=== PATIENT | male | born 1970 | race Caucasian/White ===

== ENCOUNTER 2017-04-09 04:40 | Inpatient (IN) | payer OTHER ==
[2017-04-09] MEDS ORDERED: ACETAMINOPHEN TAB 500 MG TAB PO STA (04:46)
[2017-04-09] MEDS ORDERED: VANCOMYCIN IV PER PHARMACY 1 EACH MISC MISCELLANE PRN (04:46)
[2017-04-09] MEDS ORDERED: SODIUM CHLORIDE 0.9% 1,000 ML IV ONE (04:48)
[2017-04-09] MEDS ORDERED: SODIUM CHLORIDE 0.9% 1,000 ML IV SCH (05:00)
[2017-04-09 05:03] LABS: Basophils % (A) 0 %; CH 30.3; CHCM 33.3; Eosinophils % (A) 0 %; HCT 37.7 % (39.0-53.0); HDW 2.69; HGB 12.7 gm/dL (13.0-17.5); Luc # (Auto) 0.32; Luc % (Auto) 2; Lymphocytes # (A) 0.6 k/uL (1.0-4.8); Lymphocytes % (A) 4 %; MCH 30.8 pg (25.0-35.0); MCHC 33.7 g/dL (31.0-37.0); MCV 91.3 fL (80.0-100.0); Mean Platelet Volume 6.9; Monocytes % (A) 6 %; Neutrophils # (A) 14.3 k/uL (1.3-7.7); Neutrophils % (A) 88 %; RBC 4.13 m/uL (4.30-5.90); RDW 13.3 % (11.5-15.5); WBC 16.3 k/uL (3.8-10.6); WBC (Perox) 16.99
--- NOTE | 2017-04-09 05:09 | ED ---
General Adult HPI - General Chief complaint: Extremity Injury, Lower Stated complaint: leg swelling Time Seen by Provider: 04/09/17 04:46 Source: patient, EMS, RN notes reviewed, old records reviewed Mode of arrival: EMS Limitations: physical limitation - History of Present Illness Initial comments: 46-year-old male with history diabetes presents with a three-day history of worsening left foot and lower extremity pain and redness. Patient noticed a wound on his foot just at the base toes. He states he opened this with a razor blade. He did obtain some pus from this. Patient states that his foot was initially swollen, this progressed to the knee. Patient has had fever and chills. Patient takes Lantus for his diabetes. Additional past medical history of asthma. Patient is a current smoker. - Related Data Previous Rx's Medication Instructions Recorded diphenhydrAMINE [Benadryl] 25 mg PO TID PRN #20 capsule 03/01/16 Allergies Allergy/AdvReac Type Severity Reaction Status Date / Time No Known Allergies Allergy Verified 04/09/17 04:41 Review of Systems ROS Statement: Those systems with pertinent positive or pertinent negative responses have been documented in the HPI. ROS Other: All systems not noted in ROS Statement are negative. Past Medical History Past Medical History: Asthma, COPD, Diabetes Mellitus Additional Past Medical History / Comment(s): neuropathy History of Any Multi-Drug Resistant Organisms: None Reported Past Surgical History: Orthopedic Surgery Past Psychological History: ADD/ADHD Smoking Status: Former smoker Past Alcohol Use History: None Reported Past Drug Use History: Marijuana General Exam Limitations: physical limitation General appearance: alert, in distress Head exam: Present: atraumatic, normocephalic Eye exam: Present: normal appearance, PERRL ENT exam: Present: mucous membranes dry Respiratory exam: Present: wheezes, prolonged expiratory, other (Bronchospastic cough) Cardiovascular Exam: Present: normal rhythm, tachycardia GI/Abdominal exam: Present: soft. Absent: distended, tenderness Extremities exam: Present: tenderness, other (Significant swelling, erythema, and tenderness of the left lower extremity distal to the knee. There is fluctuance at the base of the toes, and open laceration.) Neurological exam: Present: alert, oriented X3 Psychiatric exam: Present: normal affect, normal mood Skin exam: Present: warm, dry Course Vital Signs 04/09/17 04/09/17 04/09/17 04:41 05:27 05:30 Temperature 101.5 F H Pulse Rate 110 H 104 H 100 Respiratory 18 18 Rate Blood Pressure 143/83 113/57 O2 Sat by Pulse 96 96 Oximetry 04/09/17 04/09/17 05:41 06:06 Temperature 100.1 F H Pulse Rate 97 100 Respiratory 18 Rate Blood Pressure 101/57 O2 Sat by Pulse 96 Oximetry EKG Findings - EKG Comments: EKG Findings:: EKG shows sinus tachycardia with occasional PVC, T-wave inversion in V2 and V3. Ventricular rate 108, GA interval 152, QRS duration 84 , QTC 458 Medical Decision Making - Medical Decision Making 46 yo male presenting with a three-day history of worsening left lower extremity pain swelling and erythema. Patient has had fever and chills. On examination his left foot is severely swollen, erythematous, warm. This progresses up to the knee. Patient is started on vancomycin and ceftriaxone. Laboratory studies are obtained, patient has white blood cell count 16.3, glucose at 305, sodium is 127 which is likely pseudohyponatremia. Creatinine 1.2. X-ray of the left foot and tib/fib is obtained , no foreign body, no soft tissue gas. - Lab Data Result diagrams: 04/09/17 04:49 04/09/17 04:49 Lab Results 04/09/17 04/09/17 04/09/17 Range/Units 04:49 04:49 04:49 WBC 16.3 H (3.8-10.6) k/uL RBC 4.13 L (4.30-5.90) m/uL Hgb 12.7 L (13.0-17.5) gm/dL Hct 37.7 L (39.0-53.0) % MCV 91.3 (80.0-100.0) fL MCH 30.8 (25.0-35.0) pg MCHC 33.7 (31.0-37.0) g/dL RDW 13.3 (11.5-15.5) % Plt Count 379 (150-450) k/uL Neutrophils % 88 % Lymphocytes % 4 % Monocytes % 6 % Eosinophils % 0 % Basophils % 0 % Neutrophils # 14.3 H (1.3-7.7) k/uL Lymphocytes # 0.6 L (1.0-4.8) k/uL Monocytes # 1.0 (0-1.0) k/uL Eosinophils # 0.0 (0-0.7) k/uL Basophils # 0.0 (0-0.2) k/uL PT (9.0-12.0) sec INR (<1.2) APTT (22.0-30.0) sec Sodium 127 L (137-145) mmol/L Potassium 4.2 (3.5-5.1) mmol/L Chloride 98 (98-107) mmol/L Carbon Dioxide 17 L (22-30) mmol/L Anion Gap 12 mmol/L BUN 21 H (9-20) mg/dL Creatinine 1.20 (0.66-1.25) mg/dL Est GFR (MDRD) Af Amer >60 (>60 ml/min/1.73 sqM) Est GFR (MDRD) Non-Af >60 (>60 ml/min/1.73 sqM) Glucose 337 H (74-99) mg/dL POC Glucose (mg/dL) (75-99) mg/dL POC Glu Mitering Machine Operator ID Plasma Lactic Acid Cezar 1.9 (0.7-2.0) mmol/L Calcium 8.4 (8.4-10.2) mg/dL Total Bilirubin 1.1 (0.2-1.3) mg/dL AST 33 (17-59) U/L ALT 42 (21-72) U/L Alkaline Phosphatase 94 (38-126) U/L Total Protein 6.5 (6.3-8.2) g/dL Albumin 3.2 L (3.5-5.0) g/dL Acetone, Qual Negative (Negative) 04/09/17 04/09/17 Range/Units 04:49 04:59 WBC (3.8-10.6) k/uL RBC (4.30-5.90) m/uL Hgb (13.0-17.5) gm/dL Hct (39.0-53.0) % MCV (80.0-100.0) fL MCH (25.0-35.0) pg MCHC (31.0-37.0) g/dL RDW (11.5-15.5) % Plt Count (150-450) k/uL Neutrophils % % Lymphocytes % % Monocytes % % Eosinophils % % Basophils % % Neutrophils # (1.3-7.7) k/uL Lymphocytes # (1.0-4.8) k/uL Monocytes # (0-1.0) k/uL Eosinophils # (0-0.7) k/uL Basophils # (0-0.2) k/uL PT 11.8 (9.0-12.0) sec INR 1.2 H (<1.2) APTT 27.9 (22.0-30.0) sec Sodium (137-145) mmol/L Potassium (3.5-5.1) mmol/L Chloride (98-107) mmol/L Carbon Dioxide (22-30) mmol/L Anion Gap mmol/L BUN (9-20) mg/dL Creatinine (0.66-1.25) mg/dL Est GFR (MDRD) Af Amer (>60 ml/min/1.73 sqM) Est GFR (MDRD) Non-Af (>60 ml/min/1.73 sqM) Glucose (74-99) mg/dL POC Glucose (mg/dL) 305 H (75-99) mg/dL POC Glu Mitering Machine Operator ID Haley Mujica Plasma Lactic Acid Cezar (0.7-2.0) mmol/L Calcium (8.4-10.2) mg/dL Total Bilirubin (0.2-1.3) mg/dL AST (17-59) U/L ALT (21-72) U/L Alkaline Phosphatase (38-126) U/L Total Protein (6.3-8.2) g/dL Albumin (3.5-5.0) g/dL Acetone, Qual (Negative) Disposition Clinical Impression: Cellulitis and abscess of foot, Sepsis Disposition: [facility] Condition: Good Referrals: Armaan León DO [Primary Care Provider] - 1-2 days Decision to Admit Reason: Admit from EC Decision Date: 04/09/17 Decision Time: 06:24
[2017-04-09 05:11] LABS: INR 1.2 (<1.2); Partial Thromboplastin Time 27.9 sec (22.0-30.0); Prothrombin Time 11.8 sec (9.0-12.0)
[2017-04-09] MEDS ORDERED: IPRATROPIUM 0.5 MG/2.5 ML NEBU INHALATION STA (05:13)
[2017-04-09] MEDS ORDERED: ALBUTEROL NEBULIZED 2.5 MG/3 ML INHALATION STA (05:13)
[2017-04-09 05:19] LABS: ALT 42 U/L (21-72); AST 33 U/L (17-59); Alkaline Phosphatase 94 U/L (38-126); Anion Gap 12 mmol/L; Blood Urea Nitrogen 21 mg/dL (9-20); Calcium 8.4 mg/dL (8.4-10.2); Carbon Dioxide 17 mmol/L (22-30); Chloride 98 mmol/L (98-107); Glucose 337 mg/dL (74-99); Non-African American GFR(MDRD) >60 (>60 ml/min/1.73 sqM); Potassium 4.2 mmol/L (3.5-5.1); Sodium 127 mmol/L (137-145); Total Bilirubin 1.1 mg/dL (0.2-1.3); Total Protein 6.5 g/dL (6.3-8.2)
[2017-04-09 05:20] LABS: Glucose,Whole Blood 305 mg/dL (75-99)
[2017-04-09] MEDS ORDERED: MORPHINE SULFATE 4 MG/ML SYRINGE IVP STA (05:20)
[2017-04-09] MEDS ORDERED: ONDANSETRON 4 MG/2 ML VIAL IVP STA (05:28)
[2017-04-09] MEDS ORDERED: VANCOMYCIN 1,500 MG in SODIUM CHLORIDE 0.9% 250 ML IVPB ONE (06:00)
[2017-04-09] MEDS ORDERED: KETOROLAC 30 MG/ML 1 ML VIAL IVP STA (06:13)
[2017-04-09] MEDS ORDERED: ONDANSETRON 4 MG/2 ML VIAL IVP PRN (06:25)
[2017-04-09] MEDS ORDERED: NALOXONE 0.4 MG/ML 1 ML VIAL IV PRN (06:25)
--- NOTE | 2017-04-09 06:32 | XR ---
EXAM: XR Left Foot Complete, 3 or More Views CLINICAL HISTORY: Reason: Pain TECHNIQUE: Frontal, lateral and oblique views of the left foot. COMPARISON: No relevant prior studies available. FINDINGS: Bones/joints: Faint density lateral to the fifth proximal phalanx seen only on the oblique view. This may represent overlying debris or soft tissue calcification. Mild narrowing of the first MTP joint. No acute fracture. No dislocation. Soft tissues: Mild soft tissue swelling about the midfoot No radiopaque foreign body. Other findings: IMPRESSION: No acute bony abnormality. Possible overlying debris versus soft tissue calcification adjacent to the fifth proximal phalanx. Recommend clinical correlation.
--- NOTE | 2017-04-09 06:35 | XR ---
EXAM: XR Left Tibia and Fibula, 2 Views CLINICAL HISTORY: Reason: Pain TECHNIQUE: Frontal and lateral views of the left tibia and fibula. COMPARISON: No relevant prior studies available. FINDINGS: Bones/joints: No acute fracture. No dislocation. Soft tissues: Faint curvilinear density in the medial aspect of the mid left lower extremity which likely reflect material overlying the skin. Recommend correlation with exam. IMPRESSION: No acute findings.
[2017-04-09 07:33] LABS: Glucose,Whole Blood 249 mg/dL (75-99)
[2017-04-09] MEDS: INSULIN LISPRO (humaLOG) 300 UNIT/3 ML VIAL SQ SCH ×5 (08:15→21:34)
[2017-04-09 08:33] VITALS: BMI 25.2
[2017-04-09] MEDS: MORPHINE SULFATE 4 MG/ML SYRINGE IV PRN ×4 (08:37→20:37)
[2017-04-09 12:25] LABS: Glucose,Whole Blood 284 mg/dL (75-99)
[2017-04-09] MEDS ORDERED: INSULIN GLARGINE 100 UNIT/ML 10 ML VIAL SQ SCH (12:58)
[2017-04-09] MEDS: LISINOPRIL 5 MG TAB PO SCH (13:34)
[2017-04-09] MEDS: GABAPENTIN 400 MG CAP PO SCH ×3 (13:34→20:36)
[2017-04-09] MEDS: ENOXAPARIN 40 MG/0.4 ML SYRINGE SQ SCH (13:34)
[2017-04-09] MEDS: LACTATED RINGERS 1,000 ML IV SCH (16:05)
[2017-04-09] MEDS: VANCOMYCIN 1,500 MG in SODIUM CHLORIDE 0.9% 250 ML IVPB SCH (16:09)
[2017-04-09] MEDS: PIPERACILLIN-TAZOBACTAM 3.375 GM in DEXTROSE/WATER 1 50ML.BAG IVPB SCH (16:09)
[2017-04-09 17:19] LABS: Glucose,Whole Blood 164 mg/dL (75-99)
--- NOTE | 2017-04-09 18:06 | HP ---
HISTORY AND PHYSICAL DATE OF ADMISSION: 04/09/2017 PRESENTING COMPLAINT: Left foot infection. HISTORY OF PRESENTING COMPLAINT: Pleasant 46-year-old patient of Dr. León. He has been a diabetic for close to 8 years with peripheral neuropathy. He has legal blindness in the right eye. The patient has an infection of the right big toe and is due for amputation by Dr. Mattson in a week's time. For 3 days he started off with infection in the left foot. His daughter thought he had glass in the dorsum of the foot, whereas he thought maybe there was a spider bite. Nevertheless, the left foot near the lateral 3 toes is rather infected, became swollen, boggy, painful. The patient's friend yesterday took a razor sterilized in some alcohol and drained it, and he said about a cupful of pus came out. Because the pain was becoming unbearable, he decided to come into the hospital. His other stable conditions include COPD. REVIEW OF SYSTEMS: CONSTITUTIONAL: None. HEENT: Poor vision in the right eye. RESPIRATORY: Baseline shortness of breath, mild. CARDIOVASCULAR: None. GASTROINTESTINAL: None. GENITOURINARY: None. MUSCULOSKELETAL: As above. DERMATOLOGICAL: As above. LYMPHATICS: None. PSYCHIATRY: None. NEUROLOGICAL: Peripheral neuropathy. PAST MEDICAL HISTORY: 1. Peripheral neuropathy. 2. Diabetes. 3. COPD. 4. Left big toe infection. PAST SURGICAL HISTORY: Orthopedic surgery. PAST PSYCHIATRIC HISTORY: ADHD. SOCIAL HISTORY: The patient smoked for 27 years, 1 pack a day; stopped less than a year ago. The patient takes care of his mother. FAMILY HISTORY: Diabetes. HOME MEDICATIONS: 1. Gabapentin 1200 mg p.o. t.i.d. 2. Prinivil 5 mg p.o. daily. 3. Lantus 70 units subcutaneously before meals t.i.d. ALLERGIES: NONE. PHYSICAL EXAMINATION: VITAL SIGNS ON PRESENTATION: Temperature 101.5, pulse 110, respiration 18, blood pressure 143/83, pulse ox 96% on room air. GENERAL APPEARANCE: Average build. Lying in bed, not in distress. EYES: Pupils equal. Conjunctivae normal. HEENT: Oral cavity normal. NECK: JVD not raised. Mass not palpable. RESPIRATORY: Effort normal. LUNGS: Decreased breath sounds. CARDIOVASCULAR: First and second sounds normal. No edema. ABDOMEN: Soft, nontender. Liver and spleen not palpable. LYMPHATIC: No lymph node palpable in neck or axillae. PSYCHIATRY: Alert and oriented x3. Mood and affect normal. NEUROLOGICAL: Pupils equal. Cranial nerves grossly intact. Decreased sensation in the feet. Pulses: Patient's dorsalis pedis is palpable on both sides. EXTREMITIES: There is a large area of bogginess on the dorsum of the left foot and on the plantar surface with an area of breakdown, tenderness. INVESTIGATIONS: White count 16.3, hemoglobin 12.7, sodium 127, potassium 4.2, BUN 21, creatinine 1.27. Glucose 305. HGB A1c is 9. Albumin is 3.2. Serum acetone is negative. Foot x-ray shows no bony abnormalities. ASSESSMENT: 1. Left foot abscess in a diabetic with a wound and peripheral neuropathy; about a cupful of pus was drained outside. 2. Diabetes mellitus, type 2, chronically on insulin, causing peripheral neuropathy. 3. Chronic obstructive pulmonary disease in an ex-smoker. 4. Legally blind in the right eye. PLAN: The patient is on IV vancomycin. Will also add IV Zosyn. Consultation to Orthopedics for possible surgical intervention. will be done. Will check a lipid profile. Also add Lipitor. Will add some NSAIDs for anti-inflammatory effect. Will also consult Dr. Mattson, to whom the patient is known. Care was discussed with the patient. IV fluids will be given liberally. MMODL / IJN: [id number] /
[2017-04-09 21:27] LABS: Glucose,Whole Blood 138 mg/dL (75-99)
[2017-04-09] MEDS: guaiFENesin SYRUP 100MG/5ML 200 MG/10 ML CUP PO PRN (21:28)
[2017-04-09] MEDS: INSULIN GLARGINE 100 UNIT/ML 10 ML VIAL SQ SCH (21:32)
[2017-04-09] MEDS: ACETAMINOPHEN TAB 325 MG TAB PO PRN (22:25)
[2017-04-10] MEDS: MORPHINE SULFATE 4 MG/ML SYRINGE IV PRN ×4 (00:57→20:38)
[2017-04-10] MEDS: INSULIN GLARGINE 100 UNIT/ML 10 ML VIAL SQ SCH (00:59)
[2017-04-10] MEDS: LACTATED RINGERS 1,000 ML IV SCH ×4 (01:01→17:22)
[2017-04-10] MEDS: PIPERACILLIN-TAZOBACTAM 3.375 GM in DEXTROSE/WATER 1 50ML.BAG IVPB SCH ×3 (01:03→15:12)
[2017-04-10] MEDS ORDERED: IBUPROFEN 400 MG TAB PO PRN (01:24)
[2017-04-10] MEDS ORDERED: IV FLUID CONTINUATION 1,000 ML IV ONE ×4 (04:08)
[2017-04-10] MEDS: VANCOMYCIN 1,500 MG in SODIUM CHLORIDE 0.9% 250 ML IVPB SCH ×2 (04:27→15:12)
--- NOTE | 2017-04-10 06:34 | CONS ---
CONSULTATION DATE OF SERVICE: 04/09/2017 REASON FOR CONSULTATION: Left diabetic foot infection with sepsis and antibiotic recommendation. HISTORY OF PRESENT ILLNESS: The patient is a 46-year-old male with a past medical history significant for diabetes mellitus with peripheral neuropathy. The patient started having a problem with his left foot swelling and redness for the last 3 to 4 days. Apparently the patient may have stepped on a glass as the daughter did pull a small piece of glass from his plantar aspect of his left foot a few days ago. The area subsequently becoming more swollen and red and painful. Pain described to be throbbing almost 7 to 8 out of 10 and worse with minimal touch. With the area getting more swollen and red, one of his friends took a razor and tried to drain it, with drainage of some abscess; however, subsequently the patient has more pain in his left foot area for which the patient came to the [facility] ER. The patient has been evaluated by the ER physician. The patient did have fever of 101 degrees Fahrenheit. The patient did have elevated white count of 16,000. X-rays of the left foot did show no acute bony abnormality, possible overlying debris versus soft tissue calcification adjacent to the fifth proximal phalanx. The patient was started on broad-spectrum antibiotic in the form of vancomycin and Zosyn. ID was consulted for further recommendation regarding antibiotic therapy. REVIEW OF SYSTEMS: CONSTITUTIONAL: Positive for weakness along with the fever. EYES: No complaint. ENT: No complaint. RESPIRATORY: No complaint. CARDIOVASCULAR: No complaint. GENITOURINARY: No complaint. GASTROINTESTINAL: No complaint. MUSCULOSKELETAL: As per HPI. INTEGUMENTARY: As per HPI. PSYCHOLOGICAL: No complaint. ENDOCRINE: No complaint. NEUROLOGIC: No complaint. PAST MEDICAL HISTORY: Significant for COPD, asthma, diabetes mellitus. PAST SURGICAL HISTORY: Previous orthopedic surgery. SOCIAL HISTORY: Remote history of smoking and did admit to marijuana use. No drinking. FAMILY HISTORY: No pertinent findings noticed. ALLERGIES: No known drug allergies. MEDICATIONS: Medications include the patient is currently on Tylenol, Lipitor, Lovenox, Neurontin, Robitussin, Lantus, Humalog, lactated Ringer's, Zestril, morphine sulfate, Narcan, Zofran, piperacillin tazobactam and vancomycin, pharmacy to dose. PHYSICAL EXAMINATION: On examination, blood pressure 121/66 with a pulse of 85, temperature of 97, T- max is 101. He is 98% on room. General description is a middle-aged male lying in bed, in no distress. No tachypnea or accessory muscle of respiration use. HEENT EXAMINATION: No pallor or scleral icterus. Oral mucous membrane is dry. NECK: Trachea central. No thyromegaly. LUNGS: Unlabored breathing. Clear to auscultation anteriorly. HEART: S1, S2. Regular rate and rhythm. ABDOMEN: Soft, no tenderness. Left foot is swollen and red with a wound on the plantar aspect and surrounding abscess, is painful to touch. NEUROLOGICAL: Patient is awake, alert, oriented x3. Mood and affect normal. LABS: Hemoglobin is 12.7, white count 16.3 with a BUN of 21, creatinine 1.20. Blood and wound culture obtained currently pending. DIAGNOSTIC IMPRESSION AND PLAN: Patient with sepsis in a patient who did have a fever, elevated white count meeting criteria for systemic inflammatory response syndrome. Source is left diabetic foot infection with an abscess with attempted drainage at home and removal of a piece of glass likely the initiating factor for this infection. In view of his uncontrolled diabetes, will need to cover for the resistant gram positive and gram negative pathogen. PLAN: 1. Vancomycin pharmacy to dose with target trough of 15 and with Zosyn will provide adequate antibiotic coverage for underlying diabetic foot infection. 2. Await had the surgery evaluation and drainage of this abscess at which time deep culture should be obtained. 3. We will follow up on his clinical condition and culture to further adjust medication if needed. Thank you for this consultation. Will follow this patient along with you. MMODL / IJN: [id number] / [place]
[2017-04-10 07:29] LABS: Glucose,Whole Blood 143 mg/dL (75-99)
[2017-04-10] MEDS: GABAPENTIN 400 MG CAP PO SCH ×3 (07:36→20:43)
[2017-04-10] MEDS: ATORVASTATIN 40 MG TAB PO SCH (07:36)
[2017-04-10] MEDS: LISINOPRIL 5 MG TAB PO SCH (07:37)
[2017-04-10] MEDS: ENOXAPARIN 40 MG/0.4 ML SYRINGE SQ SCH (07:37)
[2017-04-10] MEDS: INSULIN LISPRO (humaLOG) 300 UNIT/3 ML VIAL SQ SCH ×7 (07:39→20:44)
[2017-04-10 08:12] LABS: AST 29 U/L (17-59); Alkaline Phosphatase 76 U/L (38-126); Anion Gap 10 mmol/L; Blood Urea Nitrogen 13 mg/dL (9-20); Calcium 8.3 mg/dL (8.4-10.2); Carbon Dioxide 20 mmol/L (22-30); Chloride 107 mmol/L (98-107); Cholesterol 85 mg/dL (<200); Glucose 137 mg/dL (74-99); HDL Cholesterol 17 mg/dL (40-60); Non-African American GFR(MDRD) >60 (>60 ml/min/1.73 sqM); Potassium 4.2 mmol/L (3.5-5.1); Sodium 137 mmol/L (137-145); Total Bilirubin 0.4 mg/dL (0.2-1.3); Total Protein 5.9 g/dL (6.3-8.2)
[2017-04-10 08:18] LABS: ALT 41 U/L (21-72)
[2017-04-10 08:32] LABS: Basophils # (A) 0.1 k/uL (0-0.2); Basophils % (A) 0 %; CH 29.6; CHCM 31.1; Eosinophils # (A) 0.1 k/uL (0-0.7); Eosinophils % (A) 1 %; HCT 39.9 % (39.0-53.0); HDW 2.82; HGB 12.7 gm/dL (13.0-17.5); Hypochromasia Slight; Luc # (Auto) 0.33; Luc % (Auto) 3; Lymphocytes # (A) 1.2 k/uL (1.0-4.8); Lymphocytes % (A) 9 %; MCH 30.5 pg (25.0-35.0); MCHC 31.9 g/dL (31.0-37.0); MCV 95.7 fL (80.0-100.0); Mean Platelet Volume 6.8; Monocytes % (A) 8 %; Neutrophils # (A) 10.2 k/uL (1.3-7.7); Neutrophils % (A) 80 %; RBC 4.17 m/uL (4.30-5.90); RDW 13.7 % (11.5-15.5); WBC 12.8 k/uL (3.8-10.6)
[2017-04-10] MEDS: guaiFENesin SYRUP 100MG/5ML 200 MG/10 ML CUP PO PRN (08:34)
--- NOTE | 2017-04-10 08:38 | P.CNOR ---
History of Present Illness - HPI Consult date: 04/10/17 History of present illness: This is a 46-year-old male who is admitted for left foot infection. Patient has a past medical history significant for diabetes. Patient states 5 days ago he was bitten by a spider and this caused an infection in the foot. Patient states over the last 5 days he has tried to drain the infection with a razor blade at home patient. Patient states clear fluid came out of the wound after he drained it at home. Patient reports excessive thirstiness. Patient states he has full sensation of the left foot and he is in a lot of pain from this infection. Patient states he sees a talent acquisition lead for the right big toe. Patient states the swelling of the left foot has doubled in size. Patient denies any fever/chills, nausea/vomiting, tingling or weakness. Review of Systems See HPI. Past Medical History Past Medical History: Asthma, COPD, Diabetes Mellitus Additional Past Medical History / Comment(s): neuropathy History of Any Multi-Drug Resistant Organisms: None Reported Past Surgical History: Orthopedic Surgery Past Psychological History: ADD/ADHD Smoking Status: Former smoker Past Alcohol Use History: None Reported Past Drug Use History: Marijuana - Past Family History Mother Family Medical History: Diabetes Mellitus Father Family Medical History: Diabetes Mellitus Medications and Allergies Home Medications Medication Instructions Recorded Confirmed Type Gabapentin 1,200 mg PO TID 04/09/17 04/09/17 History Insulin Glargine [Lantus] 70 unit SQ AC-BID 04/09/17 04/09/17 History Lisinopril [Prinivil] 5 mg PO DAILY 04/09/17 04/09/17 History Allergies Allergy/AdvReac Type Severity Reaction Status Date / Time No Known Allergies Allergy Verified 04/09/17 06:48 Physical Examination On exam of the left lower extremity there is significant swelling of the left foot extending to the lower leg. There is erythema of the dorsal aspect of the left foot. There is an abscess over the lateral aspect of the left foot with evidence of drainage. Patient has limited range of motion of the left foot and ankle due to pain and swelling. Sensation intact. Capillary refill is normal at less than 2 seconds. Results X-rays of the left foot and left tib-fib are reviewed and are negative for any fracture dislocation. - Labs Labs: Abnormal Lab Results - Last 24 Hours (Table) 04/09/17 04/09/17 04/09/17 Range/Units 04:49 12:23 17:12 Carbon Dioxide (22-30) mmol/L Glucose (74-99) mg/dL POC Glucose (mg/dL) 284 H 164 H (75-99) mg/dL Hemoglobin A1c 9.0 H (4.2-6.1) % Calcium (8.4-10.2) mg/dL Total Protein (6.3-8.2) g/dL Albumin (3.5-5.0) g/dL HDL Cholesterol (40-60) mg/dL 04/09/17 04/10/17 04/10/17 Range/Units 21:13 07:20 07:27 Carbon Dioxide 20 L (22-30) mmol/L Glucose 137 H (74-99) mg/dL POC Glucose (mg/dL) 138 H 143 H (75-99) mg/dL Hemoglobin A1c (4.2-6.1) % Calcium 8.3 L (8.4-10.2) mg/dL Total Protein 5.9 L (6.3-8.2) g/dL Albumin 2.7 L (3.5-5.0) g/dL HDL Cholesterol 17 L (40-60) mg/dL Microbiology - Last 24 Hours (Table) 04/09/17 04:49 Blood Culture - Preliminary Blood No Growth after 24 hours 04/09/17 04:52 Gram Stain - Preliminary Foot - Left Wound Culture - Preliminary H & H 04/09/17 Range/Units 04:49 Hgb 12.7 L (13.0-17.5) gm/dL Hct 37.7 L (39.0-53.0) % Coagulation 04/09/17 Range/Units 04:49 INR 1.2 H (<1.2) Result Diagrams: 04/09/17 04:49 04/10/17 07:20 Assessment and Plan (1) Cellulitis and abscess of foot Status: Acute Plan: #1. NPO #2. Incision and drainage of the left foot scheduled for today. Consent pending. #3. Will continue to follow the patient closely.
[2017-04-10 12:08] LABS: Glucose,Whole Blood 108 mg/dL (75-99)
[2017-04-10] MEDS ORDERED: fentaNYL (PF) 50 MCG/ML 2 ML AMP ONE (16:34)
[2017-04-10] MEDS ORDERED: MIDAZOLAM 2 MG/2 ML VIAL ONE (16:34)
[2017-04-10] MEDS ORDERED: SUCCINYLCHOLINE CHLORIDE 100 MG/5 ML SYR IV ONE (16:34)
[2017-04-10] MEDS ORDERED: PROPOFOL 10 MG/ML 20 ML VIAL IV ONE (16:34)
[2017-04-10] MEDS ORDERED: PHENYLEPHRINE-0.9% NACL SYG 1 MG/10 ML SYRINGE ONE ×2 (16:34)
[2017-04-10] MEDS ORDERED: HYDROmorphone 0.5 MG/0.5 ML SYRINGE IVP PRN (16:44)
--- NOTE | 2017-04-10 17:15 | P.PN ---
Progress Note - Text Progress Note Date: 04/10/17 DATE OF SERVICE: 04/10/2017 PRESENTING COMPLAINT: Left foot infection HISTORY OF PRESENT ILLNESS: 46-year-old male who presented with left foot infection, lateral 3 toes is infected swollen, boggy, painful. Friend of the patient took a razor blade and sterilized it is an alcohol and drained the area there was about a cup of pus came out. Patient admitted for left foot abscess and a diabetic wound. INTERVAL HISTORY: 04/10/2017: Patient lying in bed appears anxious. Running low-grade fevers, periodically tachycardic with occasional hypotension. Tolerating his diet, eating between 50 and 75% of his meals, IV antibiotics continue, per ID. Orthopedics consulted , scheduled for incision and draining of the left foot later today. Patient is ambulatory for short distances to and from the bathroom. REVIEW OF SYSTEMS: Done for constitutional ,cardiovascular, GI, pulmonary with relevant findings as above. CURRENT MEDICATIONS Lipitor, Lovenox, Neurontin, Motrin, Lantus, Zestril, Zosyn, vancomycin. PHYSICAL EXAM VITAL SIGNS: Temperature 97.0, pulse 86, respiratory rate 18, blood pressure 97/54, oxygen saturation 96% on room air. GENERAL APPEARANCE: Lying in bed, anxious appearing. EYES: Pupils equal. Conjunctiva normal. NECK: JVD not raised. Mass not palpable. RESPIRATORY: Respiratory effort normal. Lungs clear to auscultation. CARDIOVASCULAR: First and second sounds normal. No edema. ABDOMEN: Soft. Liver and spleen not palpable. No tenderness. No mass palpable. PSYCHIATRY: Alert and oriented x3. Mood and affect normal. INTEGUMENT: Significant swelling of the left lower extremity and foot extending to the lower leg, erythema of the dorsal aspect of the left foot, abscess noted over the lateral aspect with some drainage. Limited range of motion of the left foot. INVESTIGATIONS: White blood cell count 12.8, hemoglobin 12.7, BUN 13, creatinine 0.98, Accu- Cheks noted. ASSESSMENT: -Left foot abscess in a diabetic with a wound and peripheral neuropathy, about a cupful of pus was drained prior to admission. -Leukocytosis likely due to left foot abscess -Diabetes mellitus type 2 chronically on insulin causing peripheral neuropathy. -Chronic obstructive pulmonary disease in an ex-smoker. -Legally blind in the right eye. PLAN: Continue antibiotic therapy, wound care continues to follow the patient orthopedics taking the patient for I&D later this afternoon, infectious disease for antibiotic therapy to include vancomycin and Zosyn await deep wound cultures adjustments to be made based on that. and vascular surgery to evaluate , wound then vascular functioning of the left foot. Plan of care discussed with the patient at the bedside he is in agreement. We will continue to follow closely. [employer]ION statement: Patient was seen and examined by nurse practitioner Chio Preciado and all elements of the case discussed with attending Dr. Estrella
--- NOTE | 2017-04-10 17:19 | P.OP ---
Date of Procedure: 04/10/17 Preoperative Diagnosis: abscess left foot Postoperative Diagnosis: abscess left foot Procedure(s) Performed: incision and drainage of the left foot Anesthesia: LORI Surgeon: Gautam Ellis Pulmonary Function Technician #1: Hannah Rosen Estimated Blood Loss (ml): 5 Pathology: other Condition: stable Disposition: PACU Indications for Procedure: this is a 38-year-old gentleman that presented to the ER last night with an infection in his left foot. He has a history of having a spider bite to his left foot which became infected and failed outpatient treatment. After discussing the surgical and nonsurgical treatment options with him at length he wishes to proceed with incision and drainage of his left foot, and informed consent was obtained. Operative Findings: the operative findings are consistent with abscess of the left foot Description of Procedure: the patient was seen in the preoperative area consent was reviewed and operative site was marked with a skin marker. Patient was then brought to the operating room and given a general anesthetic by the anesthesia department. The left foot was then prepped and draped in the usual sterile fashion. A universal timeout was then performed which confirmed the patient's name, surgical site, ALLERGIES, and consent. the procedure began by incising the plantar surface of the foot in the area of maximum maximal fluctuance. Mild to moderate amount of purulent material was expressed. A hemostat was used to probe the deeper tissues. A second incision was made on the dorsum of the left foot again over the area of maximal fluctuance. Here, a large amount of purulent material was expressed. A hemostat was used to open the deeper tissues. The foot was milked both proximally and distally to ensure all the purulent material was removed. This was then cultured 3. next, the areas were irrigated with 3000 L of antibiotic solution via pulsatile lavage. after a thorough irrigation was performed, the wounds were left open and packed with iodoform gauze. Sterile dressings were then applied patient was then transferred to recovery room in stable condition. The real estate executive assistant GREGORY Foss was required due the complexity of the surgery and the need for skilled surgical supply assistant.
[2017-04-10 17:38] LABS: Glucose,Whole Blood 111 mg/dL (75-99)
[2017-04-10] MEDS ORDERED: LACTATED RINGERS 1,000 ML IV ONE (17:50)
--- NOTE | 2017-04-10 18:13 | PN ---
PROGRESS NOTE DATE OF SERVICE: 04/10/17. This patient was seen and examined by me. I discussed with my nurse practitioner, Ms. Preciado. Patient admitted with abscess of the left foot. Due for I and D earlier today. Resting in bed. Pain is present. PHYSICAL EXAMINATION: T-max 102.5, pulse 86, blood pressure 97/54. On exam lungs are clear. ABDOMEN: Soft, left foot on the dorsum and plantar some boggy with some breakdown on the plantar surface. INVESTIGATIONS: White count 12.8, potassium 4.2. Wound cultures growing Staphylococcus aureus. ASSESSMENT: Acute left foot abscess in a patient with diabetes and peripheral neuropathy. Awaiting I and D with sepsis on presentation. PLAN: The patient on IV Zosyn and Vanco. Care was discussed with the patient. Continue current medication and treatment plan. The patient is slow to respond. MMODL / FELIPEN: [id number] /
[2017-04-10 20:36] LABS: Glucose,Whole Blood 259 mg/dL (75-99)
--- NOTE | 2017-04-10 21:28 | PN ---
PROGRESS NOTE DATE OF SERVICE: 04/10/2017. REASON FOR FOLLOW UP: Left diabetic foot infection. INTERVAL HISTORY: The patient is afebrile. He was seen on rounds this morning where the patient was waiting for surgical I and D of this area. The patient denies any chest pain, shortness of breath or cough. No abdominal pain. Pain to the area was slightly controlled. EXAMINATION: Blood pressure is 140/87 with a pulse of 113, temperature 99.1. He is 94% on room air. General description is a middle-aged male lying in bed, in no distress. RESPIRATORY SYSTEM: Unlabored breathing. Clear to auscultation anteriorly. Heart S1, S2. Regular rate and rhythm. Abdomen soft, no tenderness. Left foot remained to be swollen and red. No drainage was noticed. LABS: Hemoglobin is 12.7, white count 12.8 with a BUN of 13, creatinine 0.98. Wound culture from left foot showing presumptive Staph aureus. The blood cultures currently pending. DIAGNOSTIC IMPRESSION AND PLAN: Patient with left diabetic foot infection with likely abscess formation. The patient is scheduled for an I and D this afternoon. Plan to keep the patient on Zosyn, and Vanco while waiting for the culture to finalize. In view of extensive infection , the patient likely will need PICC line for outpatient IV antibiotic therapy. MMODL / IJN: [id number] / [place]
[2017-04-11] MEDS: MORPHINE SULFATE 4 MG/ML SYRINGE IV PRN ×6 (00:46→21:58)
[2017-04-11] MEDS: PIPERACILLIN-TAZOBACTAM 3.375 GM in DEXTROSE/WATER 1 50ML.BAG IVPB SCH ×3 (00:57→18:11)
[2017-04-11] MEDS: guaiFENesin SYRUP 100MG/5ML 200 MG/10 ML CUP PO PRN ×2 (00:57→20:14)
[2017-04-11] MEDS: LACTATED RINGERS 1,000 ML IV SCH ×5 (03:21→23:11)
[2017-04-11] MEDS: ACETAMINOPHEN TAB 325 MG TAB PO PRN (04:17)
[2017-04-11] MEDS: VANCOMYCIN 1,500 MG in SODIUM CHLORIDE 0.9% 250 ML IVPB SCH ×2 (04:17→15:53)
[2017-04-11 07:38] LABS: Glucose,Whole Blood 184 mg/dL (75-99)
[2017-04-11 08:26] LABS: Anion Gap 7 mmol/L; Blood Urea Nitrogen 10 mg/dL (9-20); Calcium 7.7 mg/dL (8.4-10.2); Carbon Dioxide 21 mmol/L (22-30); Chloride 107 mmol/L (98-107); Glucose 194 mg/dL (74-99); Non-African American GFR(MDRD) >60 (>60 ml/min/1.73 sqM); Potassium 3.7 mmol/L (3.5-5.1); Sodium 135 mmol/L (137-145)
[2017-04-11] MEDS: GABAPENTIN 400 MG CAP PO SCH ×3 (08:43→21:59)
[2017-04-11] MEDS: ATORVASTATIN 40 MG TAB PO SCH (08:43)
[2017-04-11] MEDS: INSULIN LISPRO (humaLOG) 300 UNIT/3 ML VIAL SQ SCH ×7 (08:44→22:00)
[2017-04-11] MEDS: LISINOPRIL 5 MG TAB PO SCH (08:45)
[2017-04-11] MEDS: ENOXAPARIN 40 MG/0.4 ML SYRINGE SQ SCH (08:45)
--- NOTE | 2017-04-11 09:15 | P.PN ---
Subjective Progress Note Date: 04/11/17 This is a 46-year-old male admitted for left foot infection. Patient is a known diabetic. Patient is status post incision and drainage of the left foot. This is postoperative day #1. Patient reports pain to the left foot. Patient denies any new complaints today. Objective - Vital Signs Vital signs: Vital Signs Temp 96.7 F L 04/11/17 07:00 Pulse 82 04/11/17 07:00 Resp 18 04/11/17 07:00 BP 118/68 04/11/17 07:00 Pulse Ox 94 L 04/11/17 07:00 Intake & Output 04/10/17 04/11/17 04/11/17 18:59 06:59 18:59 Intake Total 220 Output Total 10 Balance 210 Weight 82 kg Intake: IV 220 Output: Estimated Blood Loss 10 Other: Voiding Method Toilet Urinal # Voids 2 2 # Bowel Movements 1 - Exam On exam of the left foot dressing is dry and intact. Patient has good range of motion of the left ankle and is able to wiggle the toes of the left foot. Sensation intact. - Labs CBC & Chem 7: 04/10/17 07:20 04/11/17 07:35 Labs: Abnormal Lab Results - Last 24 Hours (Table) 04/10/17 04/10/17 04/10/17 Range/Units 12:05 17:31 20:35 Sodium (137-145) mmol/L Carbon Dioxide (22-30) mmol/L Glucose (74-99) mg/dL POC Glucose (mg/dL) 108 H 111 H 259 H (75-99) mg/dL Calcium (8.4-10.2) mg/dL 04/11/17 04/11/17 Range/Units 07:33 07:35 Sodium 135 L (137-145) mmol/L Carbon Dioxide 21 L (22-30) mmol/L Glucose 194 H (74-99) mg/dL POC Glucose (mg/dL) 184 H (75-99) mg/dL Calcium 7.7 L (8.4-10.2) mg/dL Microbiology - Last 24 Hours (Table) 04/10/17 16:52 Gram Stain - Preliminary Foot - Left Wound Culture - Preliminary 04/10/17 16:52 Gram Stain - Preliminary Foot - Left Wound Culture - Preliminary 04/10/17 16:52 Gram Stain - Preliminary Foot - Left Wound Culture - Preliminary 04/09/17 04:49 Blood Culture - Preliminary Blood No Growth after 48 hours 04/10/17 16:52 Anaerobic Culture - Preliminary Foot - Left 04/10/17 16:52 Anaerobic Culture - Preliminary Foot - Left 04/10/17 16:52 Anaerobic Culture - Preliminary Foot - Left 04/09/17 04:52 Gram Stain - Preliminary Foot - Left Wound Culture - Preliminary Presumptive Staph aureus Assessment and Plan (1) Cellulitis and abscess of foot Status: Acute Plan: #1. This is postoperative day #1 of incision and drainage left foot. #2. Can weight bear on heel as tolerated. #3. Appreciate input from infectious disease and vascular surgery #4. Antibiotics per infectious disease #3. Will continue to follow the patient closely.
[2017-04-11 11:45] LABS: Glucose,Whole Blood 340 mg/dL (75-99)
[2017-04-11] MEDS: NAPROXEN 250 MG TAB PO SCH ×5 (11:57→21:59)
--- NOTE | 2017-04-11 13:47 | P.CON ---
Consult Note - . Consult date: 04/11/17 Assessment/Plan:: This 46-year-old male was initially seen as an outpatient brought in during an incarceration on 02/27/2017 for a painful callus under the right great toe. Examination at that time revealed a very shallow 2 x 2 by 0.25 cm ulceration on the plantar aspect of the right hallux with granulation tissue present no odor no cellulitis no perilesional erythema. Was given prescriptions for Keflex topical gentamicin cream and a prescription for extra depth diabetic shoes with Plastizote insoles. Patient was again seen on 03/27/2017 in follow-up. Did not fill the Keflex prescription gentamicin cream was applied while he was incarcerated since he was released from his incarceration he has not used anything on the wound of the right hallux. He has not yet gone to the patient accounts manager for the diabetic shoes. Footgear worn at that visit was very inadequate. The ulceration had callused over. Callus was once again removed topical antibiotic and DSD was applied. Patient was instructed to take the Keflex. An return in follow-up in 1 week and to see the patient accounts manager for the diabetic shoes. Patient missed his follow-up appointment and has not been seen until today. Patient reports 8 days ago a friend removed a foreign body from the plantar aspect of the left forefoot. Over the past week there was swelling and increasing redness of the left foot with redness noted up into the left anteromedial lower leg and moderate pain upon weightbearing prompting him to call EMS and was brought to the hospital. I&D of a deep space abscess was performed surgically. Local exam: Both feet are warm patient is neuropathic. Sterile surgical dressing present on the left foot. left operative site was not examined by this examiner. Examination of the right foot revealed large callus plantar right hallux with a transverse fissure to the subcutaneous layer just proximal to the ulceration found under the callus which measures 2.25 x 2.5 x 0.3 cm with devitalized tissue and odor. There is no perilesional erythema exudate expressed evidence of cellulitis. Assessment: Deep abscess left plantar foot secondary to foreign body and neurotrophic ulceration plantar right hallux Plan: Hydrogel gauze 2 x 2 pad to be applied every other day to plantar right hallux. Patient should be seen by wound clinic for further care right hallux and left plantar foot wound. Patient was advised strongly he needs to obtain diabetic shoes and insoles with modification to offload right plantar hallux lesion. Would be more than happy to follow patient as an outpatient as necessary
[2017-04-11] MEDS ORDERED: VANCOMYCIN TROUGH DUE 1 EACH MISC MISCELLANE ONE (15:00)
--- NOTE | 2017-04-11 16:02 | P.PN ---
Progress Note - Text Progress Note Date: 04/11/17 DATE OF SERVICE: 04/11/2017 PRESENTING COMPLAINT: Left foot infection HISTORY OF PRESENT ILLNESS: 46-year-old male who presented with left foot infection, lateral 3 toes is infected swollen, boggy, painful. Friend of the patient took a razor blade and sterilized it is an alcohol and drained the area there was about a cup of pus came out. Patient admitted for left foot abscess and a diabetic wound. INTERVAL HISTORY: 04/11/2017: Patient is lying in bed resting quietly.was febrile overnight has had no further fever since. Status post I&D the left foot with orthopedics, complains of pain and pain not well controlled added Naprosyn.podiatry saw the patient today, recommendations to follow. 04/10/2017: Patient lying in bed appears anxious. Running low-grade fevers, periodically tachycardic with occasional hypotension. Tolerating his diet, eating between 50 and 75% of his meals, IV antibiotics continue, per ID. Orthopedics consulted , scheduled for incision and draining of the left foot later today. Patient is ambulatory for short distances to and from the bathroom. REVIEW OF SYSTEMS: Done for constitutional ,cardiovascular, GI, pulmonary with relevant findings as above. CURRENT MEDICATIONS Lipitor, Lovenox, Neurontin, Motrin, Lantus, Zestril, Zosyn, vancomycin. PHYSICAL EXAM VITAL SIGNS: Temperature 97.0, pulse 86, respiratory rate 18, blood pressure 97/54, oxygen saturation 96% on room air. GENERAL APPEARANCE: Lying in bed, anxious appearing. EYES: Pupils equal. Conjunctiva normal. NECK: JVD not raised. Mass not palpable. RESPIRATORY: Respiratory effort normal. Lungs clear to auscultation. CARDIOVASCULAR: First and second sounds normal. No edema. ABDOMEN: Soft. Liver and spleen not palpable. No tenderness. No mass palpable. PSYCHIATRY: Alert and oriented x3. Mood and affect normal. INTEGUMENT: Significant swelling of the left lower extremity and foot extending to the lower leg, erythema of the dorsal aspect of the left foot, abscess noted over the lateral aspect with some drainage. Limited range of motion of the left foot. INVESTIGATIONS: White blood cell count 12.8, hemoglobin 12.7, BUN 13, creatinine 0.98, Accu- Cheks noted. ASSESSMENT: -Left foot abscess in a diabetic with a wound and peripheral neuropathy,status post I&D of the left foot -Leukocytosis likely due to left foot abscess -Diabetes mellitus type 2 chronically on insulin causing peripheral neuropathy. -Chronic obstructive pulmonary disease in an ex-smoker. -Legally blind in the right eye. PLAN: postop day 1 from incision and drainage of left foot wound, may bear weight on the left heel, wound care continues to follow the patient , infectious disease for antibiotic therapy to include vancomycin and Zosyn await deep wound cultures adjustments to be made based on that. podiatry recommended hydrogel gauze 2 x 2 pad to be applied every other day to the plantar right hallux and left plantar foot wound. Patient was advised to by diabetic shoes and insoles and offloading right plantar hallux. await vascular surgery input area. Plan of care discussed with the patient at the bedside he is in agreement. We will continue to follow closely. ENTRY LEVEL SALES ASSOCIATE statement: Patient was seen and examined by nurse practitioner Chio Preciado and all elements of the case discussed with attending Dr. Estrella
[2017-04-11 16:19] LABS: Glucose,Whole Blood 49 mg/dL (75-99)
--- NOTE | 2017-04-11 16:59 | PN ---
PROGRESS NOTE DATE OF SERVICE: 04/11/17 ATTENDING NOTE: This patient seen and examined by me. I discussed with nurse practitioner, Ms. Preciado. Patient admitted to OR yesterday and I&D was carried out with significant amount of pus obtained. Foot is wrapped up. Pain is present. Requesting the pain medicine to be increased. Tolerating his diet. PHYSICAL EXAMINATION: Temperature last night 102, this morning 96.7, respiration 18, blood pressure 100/68. Lungs are clear. Cardiovascular: 1st and 2nd sounds normal. INVESTIGATIONS: Potassium 3.7. Wound cultures have been growing Staph aureus that is MSSA. ASSESSMENT: Left foot abscess diabetic wound and peripheral neuropathy, status post I and D growing MSSA. PLAN: Antibiotics to continue. Follow with ID. Care was discussed with the patient. MMODL / IJN: [id number] /
[2017-04-11 17:07] LABS: Glucose,Whole Blood 63 mg/dL (75-99)
[2017-04-11 17:07] LABS: Glucose,Whole Blood 75 mg/dL (75-99)
[2017-04-11 17:23] LABS: Glucose,Whole Blood 76 mg/dL (75-99)
[2017-04-11] MEDS: CALCIUM CARBONATE 500 MG CHEWABLE PO PRN (20:49)
[2017-04-11 20:57] LABS: Glucose,Whole Blood 279 mg/dL (75-99)
[2017-04-11] MEDS: INSULIN GLARGINE 100 UNIT/ML 10 ML VIAL SQ SCH (22:00)
--- NOTE | 2017-04-11 22:47 | PN ---
PROGRESS NOTE DATE OF SERVICE: 04/11/2017. REASON FOR FOLLOWUP: Left diabetic foot infection with an abscess. INTERVAL HISTORY: The patient is afebrile, has been breathing comfortably. Pain to the left foot is still throbbing and 6 to 7 out of 10 and no radiation. The patient denies any chest pain shortness of breath or cough or abdominal pain or any diarrhea. EXAMINATION: Blood pressure 118/68 with a pulse of 82, temperature 96.7. He is 94% on room air. GENERAL DESCRIPTION: A middle-aged male lying in bed in no distress. RESPIRATORY SYSTEM: Unlabored breathing. Clear to auscultation anteriorly. HEART: S1, S2. Regular rate and rhythm. ABDOMEN: Soft, no tenderness. LEFT FOOT: Currently dressed up. No obvious drainage on the dressing. LABS: Wound culture did show Staph aureus, which is an MSSA. DIAGNOSTIC IMPRESSION AND PLAN: Patient with left diabetic foot infection. Culture positive for methicillin-sensitive Staphylococcus aureus. The patient's antibiotic will be adjusted to Unasyn 3 g every 6. Will discontinue Zosyn and vancomycin. Continue supportive care. MMODL / IJN: [id number] /
[2017-04-12 02:33] LABS: Glucose,Whole Blood 242 mg/dL (75-99)
[2017-04-12] MEDS ORDERED: VANCOMYCIN 1,750 MG in SODIUM CHLORIDE 0.9% 250 ML IVPB SCH (04:00)
[2017-04-12] MEDS: MORPHINE SULFATE 4 MG/ML SYRINGE IV PRN ×5 (05:00→21:58)
[2017-04-12] MEDS: guaiFENesin SYRUP 100MG/5ML 200 MG/10 ML CUP PO PRN ×3 (05:57→21:58)
[2017-04-12] MEDS: AMPICILLIN-SULBACTAM 3 GM in SODIUM CHLORIDE 0.9% 100 ML IVPB SCH ×3 (06:45→17:53)
[2017-04-12] MEDS: LACTATED RINGERS 1,000 ML IV SCH ×3 (06:45→16:21)
[2017-04-12 07:26] LABS: Glucose,Whole Blood 177 mg/dL (75-99)
[2017-04-12] MEDS: ENOXAPARIN 40 MG/0.4 ML SYRINGE SQ SCH (08:00)
[2017-04-12] MEDS: LISINOPRIL 5 MG TAB PO SCH (08:00)
[2017-04-12] MEDS: GABAPENTIN 400 MG CAP PO SCH ×3 (08:00→20:50)
[2017-04-12] MEDS: ATORVASTATIN 40 MG TAB PO SCH (08:00)
[2017-04-12] MEDS: NAPROXEN 250 MG TAB PO SCH ×3 (08:00→20:51)
[2017-04-12] MEDS: INSULIN LISPRO (humaLOG) 300 UNIT/3 ML VIAL SQ SCH ×7 (08:02→21:07)
--- NOTE | 2017-04-12 08:33 | P.PN ---
Subjective This is a 46-year-old male admitted for left foot infection. Patient is a known diabetic. Patient is status post incision and drainage of the left foot. This is postoperative day #2. Patient reports continued pain to the left foot. Patient denies any new complaints today. Objective - Vital Signs Vital signs: Vital Signs Temp 97.3 F L 04/12/17 07:00 Pulse 63 04/12/17 07:00 Resp 16 04/12/17 07:00 BP 122/67 04/12/17 07:00 Pulse Ox 97 04/12/17 07:00 Intake & Output 04/11/17 04/12/17 04/12/17 18:59 06:59 18:59 Other: Voiding Method Toilet Toilet Urinal Urinal # Voids 2 2 # Bowel Movements 1 - Exam Patient is lying in bed in no acute distress. Patient is alert and oriented x3. On exam of the left foot dressing and packing are removed. Incisions are open draining. There is soft tissue swelling of the left foot. Patient has good range of motion of the left ankle and is able to wiggle the toes of the left foot. Sensation intact. - Labs CBC & Chem 7: 04/10/17 07:20 04/11/17 07:35 Labs: Abnormal Lab Results - Last 24 Hours (Table) 04/11/17 04/11/17 04/11/17 Range/Units 07:35 11:41 16:12 Sodium 135 L (137-145) mmol/L Carbon Dioxide 21 L (22-30) mmol/L Glucose 194 H (74-99) mg/dL POC Glucose (mg/dL) 340 H 49 L (75-99) mg/dL Calcium 7.7 L (8.4-10.2) mg/dL 04/11/17 04/11/17 04/12/17 Range/Units 16:28 20:56 02:32 Sodium (137-145) mmol/L Carbon Dioxide (22-30) mmol/L Glucose (74-99) mg/dL POC Glucose (mg/dL) 63 L 279 H 242 H (75-99) mg/dL Calcium (8.4-10.2) mg/dL 04/12/17 Range/Units 07:08 Sodium (137-145) mmol/L Carbon Dioxide (22-30) mmol/L Glucose (74-99) mg/dL POC Glucose (mg/dL) 177 H (75-99) mg/dL Calcium (8.4-10.2) mg/dL Microbiology - Last 24 Hours (Table) 04/09/17 04:49 Blood Culture - Preliminary Blood No Growth after 72 hours 04/10/17 16:52 Gram Stain - Preliminary Foot - Left Wound Culture - Preliminary Presumptive Staph aureus 04/10/17 16:52 Gram Stain - Preliminary Foot - Left Wound Culture - Preliminary Presumptive Staph aureus 04/10/17 16:52 Gram Stain - Preliminary Foot - Left Wound Culture - Preliminary Presumptive Staph aureus 04/09/17 04:52 Gram Stain - Final Foot - Left Wound Culture - Final Staphylococcus aureus Assessment and Plan (1) Cellulitis and abscess of foot Status: Acute Plan: #1. This is postoperative day #2 of incision and drainage left foot. #2. Can weight bear on heel as tolerated. #3. Appreciate input from infectious disease and vascular surgery #4. Antibiotics and wound care per infectious disease #3. Will continue to follow the patient closely.
[2017-04-12 09:32] LABS: Anion Gap 8 mmol/L; Blood Urea Nitrogen 8 mg/dL (9-20); Calcium 8.5 mg/dL (8.4-10.2); Carbon Dioxide 24 mmol/L (22-30); Chloride 109 mmol/L (98-107); Glucose 142 mg/dL (74-99); Non-African American GFR(MDRD) >60 (>60 ml/min/1.73 sqM); Potassium 4.2 mmol/L (3.5-5.1); Sodium 141 mmol/L (137-145)
[2017-04-12 12:38] LABS: Glucose,Whole Blood 215 mg/dL (75-99)
--- NOTE | 2017-04-12 12:52 | P.PN ---
Progress Note - Text Progress Note Date: 04/12/17 DATE OF SERVICE: 04/12/2017 PRESENTING COMPLAINT: Left foot infection HISTORY OF PRESENT ILLNESS: 46-year-old male who presented with left foot infection, lateral 3 toes is infected swollen, boggy, painful. Friend of the patient took a razor blade and sterilized it is an alcohol and drained the area there was about a cup of pus came out. Patient admitted for left foot abscess and a diabetic wound. INTERVAL HISTORY: 04/12/2017: Patient is lying in bed resting quietly appears comfortable. States he continues to have pain to his left foot but has improved since medication adjustments. Patient may bear weight on the heel of the left foot as he can tolerate, ambulatory to and from the bathroom, tolerating his diet eating about 100%. Last BM 04/11/2017. 04/11/2017: Patient is lying in bed resting quietly.was febrile overnight has had no further fever since. Status post I&D the left foot with orthopedics, complains of pain and pain not well controlled added Naprosyn.podiatry saw the patient today, recommendations to follow. 04/10/2017: Patient lying in bed appears anxious. Running low-grade fevers, periodically tachycardic with occasional hypotension. Tolerating his diet, eating between 50 and 75% of his meals, IV antibiotics continue, per ID. Orthopedics consulted , scheduled for incision and draining of the left foot later today. Patient is ambulatory for short distances to and from the bathroom. REVIEW OF SYSTEMS: Done for constitutional ,cardiovascular, GI, pulmonary with relevant findings as above. CURRENT MEDICATIONS Lipitor, Lovenox, Neurontin, Motrin, Lantus, Zestril, Unasyn 3 g every 6 hours. PHYSICAL EXAM VITAL SIGNS: Temperature 97.3, pulse 63, respiratory rate 18, blood pressure 122/67, oxygen saturation is 97% on room air. GENERAL APPEARANCE: Lying in bed, appears comfortable. EYES: Pupils equal. Conjunctiva normal. NECK: JVD not raised. Mass not palpable. RESPIRATORY: Respiratory effort normal. Lungs clear to auscultation. CARDIOVASCULAR: First and second sounds normal. No edema. ABDOMEN: Soft. Liver and spleen not palpable. No tenderness. No mass palpable. PSYCHIATRY: Alert and oriented x3. Mood and affect normal. INTEGUMENT: Reduce swelling to the left lower extremity and foot extending to the lower leg, surgical dressing in place with Valentin wrap. No Drainage noted. INVESTIGATIONS: Accu-Cheks noted LEFT FOOT CULTURE: Positive for Staphylococcus aureus Blood culture: No growth after 72 hours ASSESSMENT: -Left foot abscess in a diabetic with a wound and peripheral neuropathy,status post I&D of the left foot, culture positive for Staphylococcus aureus slowly improving -Leukocytosis likely due to left foot abscess, wound culture positive for Staphylococcus aureus -Diabetes mellitus type 2 chronically on insulin causing peripheral neuropathy. -Chronic obstructive pulmonary disease in an ex-smoker. -Legally blind in the right eye. PLAN: postop day 2 from incision and drainage of left foot wound, may bear weight on the left heel, infectious disease changed antibiotics to Unasyn for positive left foot culture with Staphylococcus aureus Patient was advised to by diabetic shoes and insoles and offloading right plantar hallux. await vascular surgery input area. Plan of care discussed with the patient at the bedside he is in agreement. We will continue to follow closely. TACK COVERER statement: Patient was seen and examined by nurse practitioner Chio Preciado and all elements of the case discussed with attending Dr. Estrella
[2017-04-12] MEDS ORDERED: MORPHINE SULFATE 2 MG/ML SYRINGE IVP STA (14:14)
[2017-04-12 17:26] LABS: Glucose,Whole Blood 138 mg/dL (75-99)
--- NOTE | 2017-04-12 18:35 | PN ---
PROGRESS NOTE DATE OF SERVICE: 04/12/2017 ATTENDING NOTE: This patient was seen and examined by me. I discussed the case with my nurse practitioner, Ms. Preciado. Patient admitted with abscess of the left foot, status post I&D growing MSSA. Pain is better controlled. PHYSICAL EXAMINATION: Afebrile. Pulse 53, blood pressure 121/67. Labs are noted. ASSESSMENT: Left foot abscess in a diabetic with wound with peripheral neuropathy, status post incision and drainage, growing MSSA. Patient is on IV Unasyn. Pain is better controlled. Will increase the patient's Humalog to 20 units with meals, cut back on the IV fluids. MMODL / IJN: [id number] /
[2017-04-12 20:20] LABS: Glucose,Whole Blood 189 mg/dL (75-99)
[2017-04-12] MEDS: INSULIN GLARGINE 100 UNIT/ML 10 ML VIAL SQ SCH (21:07)
--- NOTE | 2017-04-12 23:48 | PN ---
PROGRESS NOTE DATE OF SERVICE: 04/12/2017. REASON FOR FOLLOW UP: Left diabetic foot infection, abscess. Osteomyelitis. INTERVAL HISTORY: The patient is afebrile, has been breathing comfortably. Pain to the left foot is currently controlled with pain medication. Denies any chest pain, shortness of breath or cough. No abdominal pain or diarrhea. PHYSICAL EXAMINATION: Blood pressure 124/69 with a pulse of 69, temperature 98.3. He is 96% on room air. General description is a middle aged male, lying in bed, in no distress. Respiratory system unlabored breathing. Clear to auscultation anteriorly. Heart S1, S2. Regular rate and rhythm. Abdomen soft no tenderness. Left foot overall swelling has slightly decreased. He did have 2 wounds on the dorsum of the plantar aspect with some minimal ulceration on the plantar wound. No purulent drainage. LABS: BUN of 8 with a creatinine 0.71. Wound culture has been positive for MSSA. Blood cultures were negative. DIAGNOSTIC IMPRESSION AND PLAN: Patient with left diabetic foot infection with osteomyelitis, abscess status post drainage of this abscess. In view of the extensive infection, the patient likely will need a PICC line for outpatient IV antibiotic therapy. We will keep him on the Unasyn and get a PICC line on Saturday. Local wound care with Aquacel Silver packing was discussed with the RN. BRANDI / FELIPEN: [id number] /
[2017-04-13] MEDS: AMPICILLIN-SULBACTAM 3 GM in SODIUM CHLORIDE 0.9% 100 ML IVPB SCH ×5 (00:30→23:58)
[2017-04-13] MEDS: CALCIUM CARBONATE 500 MG CHEWABLE PO PRN (04:44)
[2017-04-13] MEDS: MORPHINE SULFATE 2 MG/ML SYRINGE IV PRN ×4 (04:49→20:49)
[2017-04-13 07:28] LABS: Glucose,Whole Blood 102 mg/dL (75-99)
[2017-04-13] MEDS: INSULIN LISPRO (humaLOG) 300 UNIT/3 ML VIAL SQ SCH ×7 (08:03→20:33)
[2017-04-13] MEDS: NAPROXEN 250 MG TAB PO SCH ×3 (08:06→20:33)
[2017-04-13] MEDS: ENOXAPARIN 40 MG/0.4 ML SYRINGE SQ SCH (08:06)
[2017-04-13] MEDS: ATORVASTATIN 40 MG TAB PO SCH (08:07)
[2017-04-13] MEDS: GABAPENTIN 400 MG CAP PO SCH ×3 (08:07→20:33)
[2017-04-13] MEDS: LISINOPRIL 5 MG TAB PO SCH (08:07)
[2017-04-13 08:31] LABS: Anion Gap 7 mmol/L; Blood Urea Nitrogen 8 mg/dL (9-20); Calcium 8.3 mg/dL (8.4-10.2); Carbon Dioxide 27 mmol/L (22-30); Chloride 107 mmol/L (98-107); Glucose 94 mg/dL (74-99); Non-African American GFR(MDRD) >60 (>60 ml/min/1.73 sqM); Potassium 4.1 mmol/L (3.5-5.1); Sodium 141 mmol/L (137-145)
[2017-04-13 08:50] LABS: Basophils % (A) 1 %; CH 31.1; CHCM 32.6; Eosinophils # (A) 0.1 k/uL (0-0.7); Eosinophils % (A) 1 %; HCT 35.6 % (39.0-53.0); HDW 2.89; Luc # (Auto) 0.17; Luc % (Auto) 2; Lymphocytes # (A) 0.9 k/uL (1.0-4.8); Lymphocytes % (A) 12 %; MCH 29.7 pg (25.0-35.0); MCHC 30.9 g/dL (31.0-37.0); Mean Platelet Volume 7.7; Monocytes # (A) 0.9 k/uL (0-1.0); Monocytes % (A) 13 %; Neutrophils % (A) 71 %; RBC 3.71 m/uL (4.30-5.90); RDW 14.6 % (11.5-15.5); WBC (Perox) 7.35
[2017-04-13 12:10] LABS: Glucose,Whole Blood 207 mg/dL (75-99)
--- NOTE | 2017-04-13 12:12 | P.PN ---
Subjective Progress Note Date: 04/13/17 Principal diagnosis: Infection left foot. his is a 46-year-old male admitted for left foot infection. Patient is a known diabetic. Patient is status post incision and drainage of the left foot. This is postoperative day #3. Patient reports continued pain to the left foot. Patient denies any new complaints today. Objective - Vital Signs Vital signs: Vital Signs Temp 97.6 F 04/13/17 07:00 Pulse 69 04/13/17 07:00 Resp 16 04/13/17 07:00 BP 139/82 04/13/17 07:00 Pulse Ox 96 04/13/17 07:00 Intake & Output 04/12/17 04/13/17 04/13/17 18:59 06:59 18:59 Other: Voiding Method Toilet Urinal # Voids 1 3 # Bowel Movements 1 - Exam This is a pleasant 46-year-old male in no acute distress. He is alert and oriented 3. Exam of the left foot reveals that there is bloody drainage on the dressing. Dressing is changed. The packing is left in place. There is minimal erythema and minimal swelling about the wounds. Pedal pulses +1/4. - Labs CBC & Chem 7: 04/13/17 07:32 04/13/17 07:32 Labs: Abnormal Lab Results - Last 24 Hours (Table) 04/12/17 04/12/17 04/12/17 Range/Units 12:20 17:11 20:17 RBC (4.30-5.90) m/uL Hgb (13.0-17.5) gm/dL Hct (39.0-53.0) % MCHC (31.0-37.0) g/dL Lymphocytes # (1.0-4.8) k/uL BUN (9-20) mg/dL POC Glucose (mg/dL) 215 H 138 H 189 H (75-99) mg/dL Calcium (8.4-10.2) mg/dL 04/13/17 04/13/17 04/13/17 Range/Units 07:00 07:32 07:32 RBC 3.71 L (4.30-5.90) m/uL Hgb 11.0 L (13.0-17.5) gm/dL Hct 35.6 L (39.0-53.0) % MCHC 30.9 L (31.0-37.0) g/dL Lymphocytes # 0.9 L (1.0-4.8) k/uL BUN 8 L (9-20) mg/dL POC Glucose (mg/dL) 102 H (75-99) mg/dL Calcium 8.3 L (8.4-10.2) mg/dL Microbiology - Last 24 Hours (Table) 04/09/17 04:49 Blood Culture - Preliminary Blood No Growth after 96 hours 04/10/17 16:52 Anaerobic Culture - Preliminary Foot - Left 04/10/17 16:52 Anaerobic Culture - Preliminary Foot - Left 04/10/17 16:52 Anaerobic Culture - Preliminary Foot - Left 04/10/17 16:52 Gram Stain - Final Foot - Left Wound Culture - Final Staphylococcus aureus 04/10/17 16:52 Gram Stain - Final Foot - Left Wound Culture - Final Staphylococcus aureus 04/10/17 16:52 Gram Stain - Final Foot - Left Wound Culture - Final Staphylococcus aureus Assessment and Plan (1) Cellulitis and abscess of foot Status: Acute Plan: The clinical findings are discussed the patient. His dressing is changed today. Packing is left in place. Wounds will be managed by infectious disease.
--- NOTE | 2017-04-13 16:12 | P.PN ---
Progress Note - Text Progress Note Date: 04/13/17 DATE OF SERVICE: 04/13/2017 PRESENTING COMPLAINT: Left foot infection HISTORY OF PRESENT ILLNESS: 46-year-old male who presented with left foot infection, lateral 3 toes is infected swollen, boggy, painful. Friend of the patient took a razor blade and sterilized it is an alcohol and drained the area there was about a cup of pus came out. Patient admitted for left foot abscess and a diabetic wound. INTERVAL HISTORY: 04/13/2017: Patient is lying in bed resting quietly appears comfortable. Complaining of what appeared to be new swelling to his left foot, explained to the patient that this is not unexpected and it will improve going forward. Antibiotic therapy continues per ID recommendations, patient is able to bear weight on the heel of the left foot as he can tolerate per orthopedics. States it dressing changes hurt his foot a lot. Overall pain is better, controlled. 04/12/2017: Patient is lying in bed resting quietly appears comfortable. States he continues to have pain to his left foot but has improved since medication adjustments. Patient may bear weight on the heel of the left foot as he can tolerate, ambulatory to and from the bathroom, tolerating his diet eating about 100%. Last BM 04/11/2017. 04/11/2017: Patient is lying in bed resting quietly.was febrile overnight has had no further fever since. Status post I&D the left foot with orthopedics, complains of pain and pain not well controlled added Naprosyn.podiatry saw the patient today, recommendations to follow. 04/10/2017: Patient lying in bed appears anxious. Running low-grade fevers, periodically tachycardic with occasional hypotension. Tolerating his diet, eating between 50 and 75% of his meals, IV antibiotics continue, per ID. Orthopedics consulted , scheduled for incision and draining of the left foot later today. Patient is ambulatory for short distances to and from the bathroom. REVIEW OF SYSTEMS: Done for constitutional ,cardiovascular, GI, pulmonary,Integument with relevant findings as above. CURRENT MEDICATIONS Lipitor, Lovenox, Neurontin, Naprosyn, Lantus, Zestril, Unasyn 3 g every 6 hours. PHYSICAL EXAM VITAL SIGNS: temperature 97.6, pulse 69, respiratory rate 16, blood pressure 139/82, oxygen saturation 96% on room air. GENERAL APPEARANCE: Lying in bed, appears comfortable. EYES: Pupils equal. Conjunctiva normal. NECK: JVD not raised. Mass not palpable. RESPIRATORY: Respiratory effort normal. Lungs clear to auscultation. CARDIOVASCULAR: First and second sounds normal. No edema. ABDOMEN: Soft. Liver and spleen not palpable. No tenderness. No mass palpable. PSYCHIATRY: Alert and oriented x3. Mood and affect normal. INTEGUMENT: swelling to the left lower extremity and foot extending to the lower leg, surgical dressing in place with Valentin wrap. No Drainage noted. INVESTIGATIONS: White blood cell count 7.0, hemoglobin 11.0, BUN 8 creatinine 0.81 Accu-Cheks noted. LEFT FOOT CULTURE: Positive for Staphylococcus aureus Blood culture: No growth after 72 hours ASSESSMENT: -Left foot abscess in a diabetic with a wound and peripheral neuropathy,status post I&D of the left foot, culture positive for Staphylococcus aureus slowly improving -Leukocytosis likely due to left foot abscess, wound culture positive for Staphylococcus aureus -Diabetes mellitus type 2 chronically on insulin causing peripheral neuropathy. -Chronic obstructive pulmonary disease in an ex-smoker. -Legally blind in the right eye. PLAN: postop day 3 from incision and drainage of left foot wound,dressing changed today by orthopedics, wound will be managed by infectious disease. may bear weight on the left heel. Patient will likely require outpatient antibiotic therapy per infectious disease and will need a PICC line. On Saturday, Plan of care discussed with the patient at the bedside he is in agreement. We will continue to follow closely. MEDICAL REVIEWER statement: Patient was seen and examined by nurse practitioner Chio Preciado and all elements of the case discussed with attending Dr. Estrella
[2017-04-13] MEDS: LACTATED RINGERS 1,000 ML IV SCH (16:51)
[2017-04-13 17:36] LABS: Glucose,Whole Blood 116 mg/dL (75-99)
[2017-04-13 20:53] LABS: Glucose,Whole Blood 202 mg/dL (75-99)
--- NOTE | 2017-04-13 21:57 | PN ---
PROGRESS NOTE DATE OF SERVICE: 04/13/2017 ATTENDING NOTE: This patient was seen and examined by me. I discussed with my nurse practitioner, Ms. Preciado. The patient with abscess of the left foot, status post I and D. The patient is getting better. Sugars are better. Eating better. EXAMINATION: Afebrile. Blood pressure 113/82. LUNGS: Clear. CARDIOVASCULAR: 1st and 2nd sounds normal. White count 7. Accu-Cheks noted. ASSESSMENT: Left foot abscess, status post incision and drainage, cultures positive for methicillin- sensitive Staphylococcus aureus. PLAN: Continue with antibiotics, PICC line pending. Will increase the patient's Humalog to 22 units with meals and scale back the Lantus to 74 units at night. MMODL / IJN: [id number] /
[2017-04-13] MEDS: ACETAMINOPHEN TAB 325 MG TAB PO PRN (23:53)
[2017-04-14] MEDS: MORPHINE SULFATE 2 MG/ML SYRINGE IV PRN ×5 (00:43→21:21)
[2017-04-14] MEDS: INSULIN GLARGINE 100 UNIT/ML 10 ML VIAL SQ SCH ×2 (04:26→21:20)
[2017-04-14] MEDS: AMPICILLIN-SULBACTAM 3 GM in SODIUM CHLORIDE 0.9% 100 ML IVPB SCH ×3 (05:56→17:12)
[2017-04-14 07:37] LABS: Glucose,Whole Blood 108 mg/dL (75-99)
[2017-04-14] MEDS: INSULIN LISPRO (humaLOG) 300 UNIT/3 ML VIAL SQ SCH ×7 (07:40→21:20)
[2017-04-14 07:56] LABS: Basophils % (A) 1 %; CH 30.7; Eosinophils # (A) 0.1 k/uL (0-0.7); Eosinophils % (A) 1 %; HCT 35.2 % (39.0-53.0); HDW 2.87; HGB 10.9 gm/dL (13.0-17.5); Hypochromasia Slight; Luc # (Auto) 0.16; Luc % (Auto) 3; Lymphocytes % (A) 18 %; MCH 29.8 pg (25.0-35.0); MCHC 30.9 g/dL (31.0-37.0); MCV 96.5 fL (80.0-100.0); Mean Platelet Volume 7.6; Monocytes # (A) 0.8 k/uL (0-1.0); Monocytes % (A) 14 %; Neutrophils # (A) 3.6 k/uL (1.3-7.7); Neutrophils % (A) 63 %; RBC 3.65 m/uL (4.30-5.90); RDW 14.4 % (11.5-15.5); WBC 5.7 k/uL (3.8-10.6); WBC (Perox) 5.47
[2017-04-14] MEDS: NAPROXEN 250 MG TAB PO SCH ×3 (08:22→21:19)
[2017-04-14] MEDS: ENOXAPARIN 40 MG/0.4 ML SYRINGE SQ SCH (08:23)
[2017-04-14] MEDS: LISINOPRIL 5 MG TAB PO SCH (08:23)
[2017-04-14] MEDS: GABAPENTIN 400 MG CAP PO SCH ×3 (08:23→21:20)
[2017-04-14] MEDS: ATORVASTATIN 40 MG TAB PO SCH (08:24)
[2017-04-14 12:09] LABS: Glucose,Whole Blood 222 mg/dL (75-99)
--- NOTE | 2017-04-14 15:35 | P.PN ---
Progress Note - Text Progress Note Date: 04/14/17 DATE OF SERVICE: 04/14/2017 PRESENTING COMPLAINT: Left foot infection HISTORY OF PRESENT ILLNESS: 46-year-old male who presented with left foot infection, lateral 3 toes is infected swollen, boggy, painful. Friend of the patient took a razor blade and sterilized it is an alcohol and drained the area there was about a cup of pus came out. Patient admitted for left foot abscess and a diabetic wound. INTERVAL HISTORY: 04/14/2017: patient seen in follow-up no acute overnight events.Patient's resting quietly in bed appears comfortable. complains of left foot pain, however is improved and controlled from previous days.antibiotic therapy continues, patient will need PICC line placement tomorrow to continue antibiotic therapy as an outpatient. Able to bear weight on the heel of the left foot.tolerating his diet ambulatory in the room, moving his bowels. 04/13/2017: Patient is lying in bed resting quietly appears comfortable. Complaining of what appeared to be new swelling to his left foot, explained to the patient that this is not unexpected and it will improve going forward. Antibiotic therapy continues per ID recommendations, patient is able to bear weight on the heel of the left foot as he can tolerate per orthopedics. States it dressing changes hurt his foot a lot. Overall pain is better, controlled. 04/12/2017: Patient is lying in bed resting quietly appears comfortable. States he continues to have pain to his left foot but has improved since medication adjustments. Patient may bear weight on the heel of the left foot as he can tolerate, ambulatory to and from the bathroom, tolerating his diet eating about 100%. Last BM 04/11/2017. 04/11/2017: Patient is lying in bed resting quietly.was febrile overnight has had no further fever since. Status post I&D the left foot with orthopedics, complains of pain and pain not well controlled added Naprosyn.podiatry saw the patient today, recommendations to follow. 04/10/2017: Patient lying in bed appears anxious. Running low-grade fevers, periodically tachycardic with occasional hypotension. Tolerating his diet, eating between 50 and 75% of his meals, IV antibiotics continue, per ID. Orthopedics consulted , scheduled for incision and draining of the left foot later today. Patient is ambulatory for short distances to and from the bathroom. REVIEW OF SYSTEMS: Done for constitutional ,cardiovascular, GI, pulmonary,Integument with relevant findings as above. CURRENT MEDICATIONS Lipitor, Lovenox, Neurontin, Naprosyn, Lantus, Zestril, Unasyn 3 g every 6 hours. PHYSICAL EXAM VITAL SIGNS: Temperature 96.8, pulse rate 58, respiratory rate 15, blood pressure 129/81, oxygen saturation 96% on room air. GENERAL APPEARANCE: Lying in bed, appears comfortable. EYES: Pupils equal. Conjunctiva normal. NECK: JVD not raised. Mass not palpable. RESPIRATORY: Respiratory effort normal. Lungs clear to auscultation. CARDIOVASCULAR: First and second sounds normal. No edema. ABDOMEN: Soft. Liver and spleen not palpable. No tenderness. No mass palpable. PSYCHIATRY: Alert and oriented x3. Mood and affect normal. INTEGUMENT: swelling to the left lower extremity and foot extending to the lower leg, surgical dressing in place with Valentin wrap. No Drainage noted. INVESTIGATIONS: White blood cell count 5.7, hemoglobin 10.9, Accu-Cheks noted. LEFT FOOT CULTURE: Positive for Staphylococcus aureus Blood culture: No growth after 120 hours ASSESSMENT: -Left foot abscess in a diabetic with a wound and peripheral neuropathy,status post I&D of the left foot, culture positive for Staphylococcus aureus slowly improving -Leukocytosis likely due to left foot abscess, wound culture positive for Staphylococcus aureus -Diabetes mellitus type 2 chronically on insulin causing peripheral neuropathy. -Chronic obstructive pulmonary disease in an ex-smoker. -Legally blind in the right eye. PLAN: postop day 4 from incision and drainage of left foot wound,dressing changed today by orthopedics, wound will be managed by infectious disease. may bear weight on the left heel. PICC line placement tentatively On Saturday, Plan of care discussed with the patient at the bedside he is in agreement. We will continue to follow closely. DOUBLE END TENON OPERATOR statement: Patient was seen and examined by nurse practitioner Chio Preciado and all elements of the case discussed with attending Dr. Estrella
[2017-04-14] MEDS: LACTATED RINGERS 1,000 ML IV SCH (17:12)
[2017-04-14 17:21] LABS: Glucose,Whole Blood 133 mg/dL (75-99)
[2017-04-14 20:52] LABS: Glucose,Whole Blood 299 mg/dL (75-99)
[2017-04-15] MEDS: AMPICILLIN-SULBACTAM 3 GM in SODIUM CHLORIDE 0.9% 100 ML IVPB SCH ×2 (00:56→05:38)
[2017-04-15] MEDS: ACETAMINOPHEN TAB 325 MG TAB PO PRN (00:56)
[2017-04-15] MEDS: MORPHINE SULFATE 2 MG/ML SYRINGE IV PRN ×5 (01:51→20:41)
[2017-04-15 05:54] LABS: Glucose,Whole Blood 68 mg/dL (75-99)
--- NOTE | 2017-04-15 06:18 | PN ---
PROGRESS NOTE DATE OF SERVICE: 04/14/2017 ATTENDING NOTE: The patient was seen and examined by me. I discussed with my nurse practitioner, Ms. Preciado. Patient admitted with left foot abscess, status post I&D. Doing better. Insulin was adjusted yesterday. Tolerating his diet. PHYSICAL EXAMINATION: On examination, afebrile. Blood pressure 129/81. Lungs are clear. CARDIOVASCULAR: First and second sounds normal. Accu-Cheks are noted. ASSESSMENT: 1. Left foot abscess, status post I&D, growing methicillin susceptible Staphylococcus aureus. 2. Diabetes improved. Looking at patient going home with IV antibiotics and PICC line as per Infectious Disease. MMODL / IJN: [id number] /
[2017-04-15 06:37] LABS: Glucose,Whole Blood 121 mg/dL (75-99)
--- NOTE | 2017-04-15 07:00 | PN ---
PROGRESS NOTE DATE OF SERVICE: 04/14/2017. REASON FOR FOLLOW UP: Left diabetic foot infection with an abscess and osteomyelitis. INTERVAL HISTORY: The patient is afebrile, has been breathing comfortably. Denies any chest pain or shortness of breath or cough. No abdominal pain or any diarrhea. PHYSICAL EXAMINATION: Blood pressure 145/91 with a pulse of 60, temperature 97.2. He is 96% on room air. General description is a middle-aged male lying in bed in no distress. Respiratory system: Unlabored breathing. Clear to auscultation anteriorly. Heart S1, S2. Regular rate and rhythm. Abdomen soft. No tenderness. Left foot is currently dressed up. No obvious drainage on the dressing. LABS: Hemoglobin is 10.9, white count 5.7. Wound culture with MSSA and aerobic culture has been negative. DIAGNOSTIC IMPRESSION AND PLAN: Patient with left foot osteomyelitis with MSSA. Sputum culture has been negative. We will get a PICC line for him tomorrow with a plan to finish therapy with cefazolin 2 g q.6h for a total of 6 weeks. Continue supportive care. MMODL / IJN: [id number] /
[2017-04-15] MEDS: INSULIN LISPRO (humaLOG) 300 UNIT/3 ML VIAL SQ SCH ×7 (07:47→21:26)
[2017-04-15] MEDS: NAPROXEN 250 MG TAB PO SCH ×3 (07:52→21:27)
[2017-04-15] MEDS: LISINOPRIL 5 MG TAB PO SCH (07:53)
[2017-04-15] MEDS: ATORVASTATIN 40 MG TAB PO SCH (07:53)
[2017-04-15] MEDS: ENOXAPARIN 40 MG/0.4 ML SYRINGE SQ SCH ×2 (07:53→10:53)
[2017-04-15] MEDS: GABAPENTIN 400 MG CAP PO SCH ×3 (07:53→21:27)
[2017-04-15 07:58] LABS: Glucose,Whole Blood 116 mg/dL (75-99)
--- NOTE | 2017-04-15 08:40 | P.PN ---
Subjective This is a 46-year-old male admitted for left foot infection. Patient is a known diabetic. Patient is status post incision and drainage of the left foot. This is postoperative day #5. Patient denies any new complaints today. Objective - Vital Signs Vital signs: Vital Signs Temp 97.0 F L 04/15/17 07:00 Pulse 61 04/15/17 07:00 Resp 18 04/15/17 07:00 BP 132/68 04/15/17 07:00 Pulse Ox 97 04/15/17 07:00 Intake & Output 04/14/17 04/15/17 04/15/17 18:59 06:59 18:59 Intake Total 260 750 Balance 260 750 Intake: IV 260 Ampicillin-Sulbactam 3 gm 100 In Sodium Chloride 0.9% 100 ml @ 100 mls/hr IVPB Q6HR [facility] Rx#:[id number] Lactated Ringers 1,000 ml 160 @ 20 mls/hr IV .Q24H [facility] Rx#:[id number] Intake, IV Titration 100 Amount Ampicillin-Sulbactam 3 gm 100 In Sodium Chloride 0.9% 100 ml @ 100 mls/hr IVPB Q6HR [facility] Rx#:[id number] Oral 650 Other: # Voids 1 3 - Exam Patient is lying in bed in no acute distress. Patient is alert and oriented x3. On exam of the left foot dressing and packing are removed. Incisions are open draining. There is soft tissue swelling of the left foot. Patient has good range of motion of the left ankle and is able to wiggle the toes of the left foot. Posterior tibial pulse is 2+. - Labs CBC & Chem 7: 04/14/17 07:07 04/13/17 07:32 Labs: Abnormal Lab Results - Last 24 Hours (Table) 04/14/17 04/14/17 04/14/17 Range/Units 12:04 17:20 20:46 POC Glucose (mg/dL) 222 H 133 H 299 H (75-99) mg/dL 04/15/17 04/15/17 04/15/17 Range/Units 05:52 06:32 07:35 POC Glucose (mg/dL) 68 L 121 H 116 H (75-99) mg/dL Microbiology - Last 24 Hours (Table) 04/09/17 04:49 Blood Culture - Final Blood No Growth after 144 hours 04/10/17 16:52 Anaerobic Culture - Final Foot - Left 04/10/17 16:52 Anaerobic Culture - Final Foot - Left 04/10/17 16:52 Anaerobic Culture - Final Foot - Left Assessment and Plan (1) Cellulitis and abscess of foot Status: Acute Plan: #1. This is postoperative day #5 of incision and drainage left foot. Cultures show MSSA. #2. PICC line, antibiotics and wound care per infectious disease. #3. Will continue to follow the patient closely.
[2017-04-15 09:30] LABS: Basophils % (A) 1 %; CH 30.5; Eosinophils # (A) 0.1 k/uL (0-0.7); Eosinophils % (A) 1 %; HCT 36.9 % (39.0-53.0); HDW 2.87; HGB 11.3 gm/dL (13.0-17.5); Luc # (Auto) 0.21; Luc % (Auto) 3; Lymphocytes % (A) 13 %; MCH 29.5 pg (25.0-35.0); MCHC 30.7 g/dL (31.0-37.0); MCV 95.9 fL (80.0-100.0); Mean Platelet Volume 7.3; Monocytes # (A) 0.7 k/uL (0-1.0); Monocytes % (A) 9 %; Neutrophils # (A) 5.6 k/uL (1.3-7.7); Neutrophils % (A) 73 %; RBC 3.85 m/uL (4.30-5.90); RDW 14.6 % (11.5-15.5); WBC 7.7 k/uL (3.8-10.6)
[2017-04-15 09:56] LABS: Anion Gap 10 mmol/L; Blood Urea Nitrogen 7 mg/dL (9-20); Calcium 8.4 mg/dL (8.4-10.2); Carbon Dioxide 31 mmol/L (22-30); Chloride 98 mmol/L (98-107); Glucose 124 mg/dL (74-99); Non-African American GFR(MDRD) >60 (>60 ml/min/1.73 sqM); Potassium 3.9 mmol/L (3.5-5.1); Sodium 139 mmol/L (137-145)
[2017-04-15] MEDS: guaiFENesin SYRUP 100MG/5ML 200 MG/10 ML CUP PO PRN (10:34)
[2017-04-15] MEDS: ALBUTEROL NEBULIZED 2.5 MG/3 ML INHALATION PRN ×2 (11:21→16:31)
[2017-04-15 11:26] LABS: Glucose,Whole Blood 263 mg/dL (75-99)
[2017-04-15] MEDS: ceFAZolin 2 GM in SODIUM CHLORIDE 0.9% 100 ML IVPB SCH (16:39)
[2017-04-15] MEDS: LACTATED RINGERS 1,000 ML IV SCH (16:51)
[2017-04-15 17:04] LABS: Glucose,Whole Blood 174 mg/dL (75-99)
--- NOTE | 2017-04-15 20:15 | P.PN ---
Progress Note - Text Progress Note Date: 04/15/17 DATE OF SERVICE: 04/15/2017 PRESENTING COMPLAINT: Left foot infection HISTORY OF PRESENT ILLNESS: 46-year-old male who presented with left foot infection, lateral 3 toes is infected swollen, boggy, painful. Friend of the patient took a razor blade and sterilized it is an alcohol and drained the area there was about a cup of pus came out. Patient admitted for left foot abscess and a diabetic wound. INTERVAL HISTORY: 04/15/2017: Patient seen in follow-up, no acute overnight events. Patient's resting quietly in bed appears comfortable. PICC line was to be placed today however patient received a dose of Lovenox this morning and therefore will not receive PICC line until tomorrow. Left foot wound continues to receive local dressing changesappetite good, tolerating his diet, ambulatory in the room, moving his bowels. Explanation provided by attending physician regarding the importance of Humalog insulin administration with his meals as patient was refusing prandial doses of insulin. Patient verbalized understanding and stated that he would begin taking them. 04/14/2017: patient seen in follow-up no acute overnight events.Patient's resting quietly in bed appears comfortable. complains of left foot pain, however is improved and controlled from previous days.antibiotic therapy continues, patient will need PICC line placement tomorrow to continue antibiotic therapy as an outpatient. Able to bear weight on the heel of the left foot.tolerating his diet ambulatory in the room, moving his bowels. 04/13/2017: Patient is lying in bed resting quietly appears comfortable. Complaining of what appeared to be new swelling to his left foot, explained to the patient that this is not unexpected and it will improve going forward. Antibiotic therapy continues per ID recommendations, patient is able to bear weight on the heel of the left foot as he can tolerate per orthopedics. States it dressing changes hurt his foot a lot. Overall pain is better, controlled. 04/12/2017: Patient is lying in bed resting quietly appears comfortable. States he continues to have pain to his left foot but has improved since medication adjustments. Patient may bear weight on the heel of the left foot as he can tolerate, ambulatory to and from the bathroom, tolerating his diet eating about 100%. Last BM 04/11/2017. 04/11/2017: Patient is lying in bed resting quietly.was febrile overnight has had no further fever since. Status post I&D the left foot with orthopedics, complains of pain and pain not well controlled added Naprosyn.podiatry saw the patient today, recommendations to follow. 04/10/2017: Patient lying in bed appears anxious. Running low-grade fevers, periodically tachycardic with occasional hypotension. Tolerating his diet, eating between 50 and 75% of his meals, IV antibiotics continue, per ID. Orthopedics consulted , scheduled for incision and draining of the left foot later today. Patient is ambulatory for short distances to and from the bathroom. REVIEW OF SYSTEMS: Done for constitutional ,cardiovascular, GI, pulmonary,Integument with relevant findings as above. CURRENT MEDICATIONS Lipitor, Lovenox, Neurontin, Naprosyn, Lantus, Zestril, cefazolin:2 g every 6 hours. PHYSICAL EXAM VITAL SIGNS: temperature 97.4, pulse 71, respiratory rate 16, blood pressure 120/75, oxygen saturation 90% on room air. GENERAL APPEARANCE: Lying in bed, appears comfortable. EYES: Pupils equal. Conjunctiva normal. NECK: JVD not raised. Mass not palpable. RESPIRATORY: Respiratory effort normal. Lungs clear to auscultation. CARDIOVASCULAR: First and second sounds normal. No edema. ABDOMEN: Soft. Liver and spleen not palpable. No tenderness. No mass palpable. PSYCHIATRY: Alert and oriented x3. Mood and affect normal. INTEGUMENT: swelling to the left lower extremity and foot extending to the lower leg, wound has good granulation tissue noted,s. No Drainage noted. INVESTIGATIONS: White blood cell count 5.7, hemoglobin 10.9, Accu-Cheks noted. LEFT FOOT CULTURE: Positive for Staphylococcus aureus Blood culture: No growth after 120 hours ASSESSMENT: -Left foot abscess in a diabetic with a wound and peripheral neuropathy,status post I&D of the left foot, culture positive for MSSA slowly improving -Leukocytosis likely due to left foot abscess, wound culture positive for MSSA -Diabetes mellitus type 2 chronically on insulin causing peripheral neuropathy. -Chronic obstructive pulmonary disease in an ex-smoker. -Legally blind in the right eye. PLAN: postop day 5 from incision and drainage of left foot abscess, wound will be managed by infectious disease. may bear weight on the left heel. PICC line placement on S[place]etha,plan to discharge patient with ceftezolin 2 g every 6 hours for a total of 6 weeks. Plan of care discussed with the patient at the bedside he is in agreement. We will continue to follow closely. DIRECTOR OF EVENT MANAGEMENT statement: Patient was seen and examined by nurse practitioner Chio Preciado and all elements of the case discussed with attending Dr. Estrella
[2017-04-15 21:10] LABS: Glucose,Whole Blood 211 mg/dL (75-99)
[2017-04-15] MEDS: INSULIN GLARGINE 100 UNIT/ML 10 ML VIAL SQ SCH (21:26)
[2017-04-16] MEDS: guaiFENesin SYRUP 100MG/5ML 200 MG/10 ML CUP PO PRN (00:15)
[2017-04-16] MEDS: MORPHINE SULFATE 2 MG/ML SYRINGE IV PRN ×5 (00:42→16:23)
[2017-04-16] MEDS: ceFAZolin 2 GM in SODIUM CHLORIDE 0.9% 100 ML IVPB SCH ×4 (00:48→23:47)
--- NOTE | 2017-04-16 06:13 | PN ---
PROGRESS NOTE DATE OF SERVICE: 04/15/2017 REASON FOR FOLLOWUP: Left diabetic foot infection with osteomyelitis MSSA. INTERVAL HISTORY: The patient is afebrile. Has been breathing comfortably. Denies any chest pain, shortness of breath or cough. No abdominal pain. Overall pain and swelling to the left foot has improved. PHYSICAL EXAMINATION: On examination, blood pressure 128/75 with a pulse of 71, temperature 97.4. He is 98% on room air. General description is a middle-aged male lying in bed in no distress. RESPIRATORY SYSTEM: Unlabored breathing. Clear to auscultation anteriorly. HEART: S1, S2. Regular rate and rhythm. ABDOMEN: Soft, no tenderness. Left foot dressed up, overall swelling and redness has improved. LABS: Hemoglobin 11.3, white count 7.7 with a BUN of 7, creatinine 0.79. DIAGNOSTIC IMPRESSION AND PLAN: Patient with left diabetic foot infection with underlying osteomyelitis and abscess, status post drainage. Culture has been positive for MSSA and no anaerobes. Antibiotic will be adjusted to cefazolin 2 gram q.8. We will continue for a total of 6 weeks. Local wound care with Aquacel Silver packing. Once the PICC line is placed and antibiotic arranged, he should be able to go home from ID standpoint. MMODL / IJN: [id number] /
--- NOTE | 2017-04-16 06:27 | PN ---
PROGRESS NOTE DATE OF SERVICE: 04/15/17. ATTENDING NOTE: Patient seen and examined by me. I discussed with my nurse practitioner, Ms. Preciado. Patient admitted with left foot abscess status post I and D, growing MSSA. PICC line was held today because patient received Lovenox. EXAMINATION: Afebrile, blood pressure 132/68. Lungs are clear. CARDIOVASCULAR: First and second sounds normal. ASSESSMENT: Left foot abscess status post I and D growing MSSA. Patient was refusing his Humalog. I did speak at length with the patient the importance of the science behind the Lantus and Humalog. He has agreed to take the same. Lovenox will be discontinued. The patient will get a PICC line tomorrow. The patient is on IV cefazolin. MMODL / IJN: [id number] /
[2017-04-16 07:08] LABS: Glucose,Whole Blood 115 mg/dL (75-99)
[2017-04-16] MEDS: ALBUTEROL NEBULIZED 2.5 MG/3 ML INHALATION PRN ×2 (07:44→20:26)
[2017-04-16] MEDS: INSULIN LISPRO (humaLOG) 300 UNIT/3 ML VIAL SQ SCH ×7 (08:06→21:34)
[2017-04-16] MEDS: GABAPENTIN 400 MG CAP PO SCH ×3 (08:09→21:36)
[2017-04-16] MEDS: NAPROXEN 250 MG TAB PO SCH ×3 (08:10→21:36)
[2017-04-16] MEDS: ATORVASTATIN 40 MG TAB PO SCH (08:10)
[2017-04-16] MEDS: LISINOPRIL 5 MG TAB PO SCH (08:10)
--- NOTE | 2017-04-16 10:06 | P.PN ---
Subjective This is a 46-year-old male admitted for left foot infection. Patient is a known diabetic. Patient is status post incision and drainage of the left foot. This is postoperative day #6. Patient denies any new complaints today. Objective - Vital Signs Vital signs: Vital Signs Temp 96.4 F L 04/16/17 07:00 Pulse 64 04/16/17 07:56 Resp 18 04/16/17 07:00 BP 132/76 04/16/17 07:00 Pulse Ox 96 04/16/17 07:00 Intake & Output 04/15/17 04/16/17 04/16/17 18:59 06:59 18:59 Intake Total 600 600 Balance 600 600 Intake: Oral 600 600 Other: # Voids 3 1 - Exam Patient is lying in bed in no acute distress. Patient is alert and oriented x3. On exam of the left foot dressing and packing are left in place. Patient has good range of motion of the left ankle and is able to wiggle the toes of the left foot. Neurovascular status intact. - Labs CBC & Chem 7: 04/15/17 08:49 04/15/17 08:49 Labs: Abnormal Lab Results - Last 24 Hours (Table) 04/15/17 04/15/17 04/15/17 Range/Units 08:49 11:14 16:52 Carbon Dioxide 31 H (22-30) mmol/L BUN 7 L (9-20) mg/dL Glucose 124 H (74-99) mg/dL POC Glucose (mg/dL) 263 H 174 H (75-99) mg/dL 04/15/17 04/16/17 Range/Units 21:02 07:04 Carbon Dioxide (22-30) mmol/L BUN (9-20) mg/dL Glucose (74-99) mg/dL POC Glucose (mg/dL) 211 H 115 H (75-99) mg/dL Microbiology - Last 24 Hours (Table) 04/09/17 04:49 Blood Culture - Final Blood No Growth after 144 hours Assessment and Plan (1) Cellulitis and abscess of foot Status: Acute Plan: #1. This is postoperative day #6 of incision and drainage left foot. Cultures show MSSA. #2. PICC line, antibiotics and wound care per infectious disease. #3. Will continue to follow the patient closely.
--- NOTE | 2017-04-16 11:24 | IR ---
EXAMINATION TYPE: IR cvc insert >=5 years DATE OF EXAM: 04/16/2017 COMPARISON: NONE CLINICAL HISTORY: Infection Needs long-term intravenous access for antibiotics. PROCEDURE: After informed consent, the skin overlying the left basilic vein was localized with ultrasound and no hope to be compressible and patent. An ultrasound image was obtained and submitted on the patient's c [place]. The overlying skin was prepped and draped and Lidocaine was used for local anesthesia. A skin bernadette was made with a scalpel. Access was gained to the vein under ultrasound guidance with a 21 gau ge needle and a 0.018 inch wire was advanced. Access site was dilated with Peel-Away sheath and cath eter tailored to the appropriate length and advanced such that the distal tip is at the cavoatrial ju nction. Spot image was obtained verifying placement. Catheter was fixed to the skin with suture and a sterile dressing was placed following hemostasis. Catheter was aspirated and flushed with saline. Patient was discharged in stable condition without complication. Maximal barrier technique is utili zed. Ultrasound image is documented on the chart. Ultrasound used with sterile technique. Fluoro time and fluoroscopic images submitted to document procedure: 165 intraoperative C-arm images, 0.4 minutes fluoroscopy time IMPRESSION: STATUS POST ULTRASOUND AND FLUOROSCOPIC GUIDED PICC LINE PLACEMENT, READY FOR USE. THIS PROCEDURE WAS PERFORMED BY THE UNDERSIGNED.
[2017-04-16 12:04] LABS: Glucose,Whole Blood 218 mg/dL (75-99)
[2017-04-16] MEDS: LACTATED RINGERS 1,000 ML IV SCH (15:22)
--- NOTE | 2017-04-16 15:28 | PN ---
PROGRESS NOTE DATE OF SERVICE: 04/16/2017. REASON FOR FOLLOW UP: Left diabetic foot wound infection with MSSA and osteomyelitis. INTERVAL HISTORY: The patient is afebrile, has been breathing comfortably. Denies any chest pain or shortness of breath, cough, no abdominal pain or any pain in the left foot area. EXAMINATION: Blood pressure 132/76 with a pulse of 56, temperature 96.4. He is 96% on room air. General description is a middle-aged male lying in bed in no distress. Respiratory system unlabored breathing. Clear to auscultation anteriorly. Heart S1, S2. Regular rate and rhythm. Abdomen soft, no tenderness. The left foot is currently dressed up, with no obvious drainage on the dressing. DIAGNOSTIC IMPRESSION AND PLAN: Patient with left foot abscess with underlying osteomyelitis status post extensive debridement, anaerobic culture has been negative. The aerobic culture positive for Methicillin-sensitive Staphylococcus aureus. He is currently on cefazolin 2 g q.8h that will be continued for a total of 6 weeks. We will need to monitor his sedimentation rate closely. He is currently at 78. Local wound care with Aquacel Silver dressing. MMODL / IJN: [id number] /
[2017-04-16 17:28] LABS: Glucose,Whole Blood 228 mg/dL (75-99)
--- NOTE | 2017-04-16 18:00 | P.PN ---
Progress Note - Text Progress Note Date: 04/16/17 DATE OF SERVICE: 04/16/2017 PRESENTING COMPLAINT: Left foot infection HISTORY OF PRESENT ILLNESS: 46-year-old male who presented with left foot infection, lateral 3 toes is infected swollen, boggy, painful. Friend of the patient took a razor blade and sterilized it is an alcohol and drained the area there was about a cup of pus came out. Patient admitted for left foot abscess and a diabetic wound. INTERVAL HISTORY: 04/16/2017: Patient seen in follow-up no acute events overnight, patient's resting quietly in bed appears comfortable. Awaiting PICC line placement this morning. Blood glucose better controlled with additional prandial Humalog insulin. Left foot wound continues to receive local dressing changes, tolerating his diet ambulatory in the room some in the hallway, moving his bowels. 04/15/2017: Patient seen in follow-up, no acute overnight events. Patient's resting quietly in bed appears comfortable. PICC line was to be placed today however patient received a dose of Lovenox this morning and therefore will not receive PICC line until tomorrow. Left foot wound continues to receive local dressing changesappetite good, tolerating his diet, ambulatory in the room, moving his bowels. Explanation provided by attending physician regarding the importance of Humalog insulin administration with his meals as patient was refusing prandial doses of insulin. Patient verbalized understanding and stated that he would begin taking them. 04/14/2017: patient seen in follow-up no acute overnight events.Patient's resting quietly in bed appears comfortable. complains of left foot pain, however is improved and controlled from previous days.antibiotic therapy continues, patient will need PICC line placement tomorrow to continue antibiotic therapy as an outpatient. Able to bear weight on the heel of the left foot.tolerating his diet ambulatory in the room, moving his bowels. 04/13/2017: Patient is lying in bed resting quietly appears comfortable. Complaining of what appeared to be new swelling to his left foot, explained to the patient that this is not unexpected and it will improve going forward. Antibiotic therapy continues per ID recommendations, patient is able to bear weight on the heel of the left foot as he can tolerate per orthopedics. States it dressing changes hurt his foot a lot. Overall pain is better, controlled. 04/12/2017: Patient is lying in bed resting quietly appears comfortable. States he continues to have pain to his left foot but has improved since medication adjustments. Patient may bear weight on the heel of the left foot as he can tolerate, ambulatory to and from the bathroom, tolerating his diet eating about 100%. Last BM 04/11/2017. 04/11/2017: Patient is lying in bed resting quietly.was febrile overnight has had no further fever since. Status post I&D the left foot with orthopedics, complains of pain and pain not well controlled added Naprosyn.podiatry saw the patient today, recommendations to follow. 04/10/2017: Patient lying in bed appears anxious. Running low-grade fevers, periodically tachycardic with occasional hypotension. Tolerating his diet, eating between 50 and 75% of his meals, IV antibiotics continue, per ID. Orthopedics consulted , scheduled for incision and draining of the left foot later today. Patient is ambulatory for short distances to and from the bathroom. REVIEW OF SYSTEMS: Done for constitutional ,cardiovascular, GI, pulmonary,Integument with relevant findings as above. CURRENT MEDICATIONS Lipitor, Lovenox, Neurontin, Naprosyn, Lantus, Zestril, cefazolin:2 g every 6 hours. PHYSICAL EXAM VITAL SIGNS: Temperature 96.3, pulse 61, respirations 18, blood pressure 141/87, oxygen saturation 96%. GENERAL APPEARANCE: Lying in bed, appears comfortable. EYES: Pupils equal. Conjunctiva normal. NECK: JVD not raised. Mass not palpable. RESPIRATORY: Respiratory effort normal. Lungs clear to auscultation. CARDIOVASCULAR: First and second sounds normal. No edema. ABDOMEN: Soft. Liver and spleen not palpable. No tenderness. No mass palpable. PSYCHIATRY: Alert and oriented x3. Mood and affect normal. INTEGUMENT: Mild swelling to the left lower extremity and foot extending to the lower leg, wound has good granulation tissue noted,s. No Drainage noted. INVESTIGATIONS: Accu-Cheks noted LEFT FOOT CULTURE: Positive for Staphylococcus aureus Blood culture: No growth after 120 hours ASSESSMENT: -Left foot abscess in a diabetic with a wound and peripheral neuropathy,status post I&D of the left foot, culture positive for MSSA slowly improving -Leukocytosis likely due to left foot abscess, wound culture positive for MSSA -Diabetes mellitus type 2 chronically on insulin causing peripheral neuropathy. -Chronic obstructive pulmonary disease in an ex-smoker. -Legally blind in the right eye. PLAN: postop day 6 from incision and drainage of left foot abscess, wound will be managed by infectious disease. may bear weight on the left heel. PICC line placement today,plan to discharge patient with ceftezolin 2 g every 6 hours for a total of 6 weeks outpatient. Patient changed his mind would prefer to go to a rehab center social work is involved. Plan of care discussed with the patient at the bedside he is in agreement. We will continue to follow closely. Likely discharge to extended care facility tomorrow. [employer]KEEPER statement: Patient was seen and examined by nurse practitioner Chio Preciado and all elements of the case discussed with attending Dr. Estrella
[2017-04-16 21:00] LABS: Glucose,Whole Blood 335 mg/dL (75-99)
[2017-04-16] MEDS: INSULIN GLARGINE 100 UNIT/ML 10 ML VIAL SQ SCH (21:34)
[2017-04-16] MEDS: HYDROcodone/APAP 7.5-325MG 1 EACH TAB PO PRN (21:37)
--- NOTE | 2017-04-16 23:13 | PN ---
PROGRESS NOTE ATTENDING NOTE: This patient was seen and examined by me. I discussed the case with my nurse practitioner, Ms. Preciado. Patient is status post I&D of the left foot. Today patient decided to go to the inpatient rehab. Social Work is working on the same. Otherwise, overall patient is doing better. PICC line was placed. PHYSICAL EXAMINATION: Afebrile. Lungs are clear. CARDIOVASCULAR: First and second sounds normal. Patient is on IV Ancef per ID. MMODL / IJN: [id number] /
[2017-04-17] MEDS: HYDROcodone/APAP 7.5-325MG 1 EACH TAB PO PRN ×2 (02:44→08:10)
[2017-04-17 07:38] LABS: Glucose,Whole Blood 177 mg/dL (75-99)
[2017-04-17] MEDS: GABAPENTIN 400 MG CAP PO SCH (08:10)
[2017-04-17] MEDS: LISINOPRIL 5 MG TAB PO SCH (08:10)
[2017-04-17] MEDS: NAPROXEN 250 MG TAB PO SCH (08:10)
[2017-04-17] MEDS: ATORVASTATIN 40 MG TAB PO SCH (08:10)
[2017-04-17] MEDS: INSULIN LISPRO (humaLOG) 300 UNIT/3 ML VIAL SQ SCH ×4 (08:11→12:54)
[2017-04-17] MEDS: ceFAZolin 2 GM in SODIUM CHLORIDE 0.9% 100 ML IVPB SCH (08:11)
--- NOTE | 2017-04-17 08:41 | P.PN ---
Subjective This is a 46-year-old male admitted for left foot infection. Patient is a known diabetic. Patient is status post incision and drainage of the left foot. This is postoperative day #7. Patient denies any new complaints today. Objective - Vital Signs Vital signs: Vital Signs Temp 96.3 F L 04/17/17 07:00 Pulse 52 L 04/17/17 07:00 Resp 18 04/17/17 07:00 BP 111/70 04/17/17 07:00 Pulse Ox 97 04/17/17 07:00 Intake & Output 04/16/17 04/17/17 04/17/17 18:59 06:59 18:59 Other: # Voids 3 2 1 - Exam Patient is lying in bed in no acute distress. Patient is alert and oriented x3. On exam of the left foot dressing and packing are left in place. Patient has good range of motion of the left ankle and is able to wiggle the toes of the left foot. Neurovascular status intact. - Labs CBC & Chem 7: 04/15/17 08:49 04/15/17 08:49 Labs: Abnormal Lab Results - Last 24 Hours (Table) 04/16/17 04/16/17 04/16/17 Range/Units 07:53 12:03 17:27 ESR 78 H (0-15) mm/hr POC Glucose (mg/dL) 218 H 228 H (75-99) mg/dL 04/16/17 04/17/17 Range/Units 20:57 07:23 ESR (0-15) mm/hr POC Glucose (mg/dL) 335 H 177 H (75-99) mg/dL Assessment and Plan (1) Cellulitis and abscess of foot Status: Acute Plan: #1. This is postoperative day #7 of incision and drainage left foot. Cultures show MSSA. #2. PICC line, antibiotics and wound care per infectious disease. #3. Patient is being discharged to rehab today. Patient may follow up as an outpatient at [facility] on an as-needed basis.
[2017-04-17] MEDS ORDERED: HYDROcodone/APAP 7.5-325MG 1 EACH TAB PO PRN (11:11)
[2017-04-17] MEDS ORDERED: HYDROcodone/APAP 10-325MG 1 EACH TAB PO PRN ×3 (11:13→12:08)
[2017-04-17] MEDS ORDERED: KETOROLAC 30 MG/ML 1 ML VIAL IVP STA (11:14)
--- NOTE | 2017-04-17 11:41 | PN ---
PROGRESS NOTE DATE OF SERVICE: 04/17/2017 REASON FOR FOLLOWUP: Left diabetic foot infection with osteomyelitis. INTERVAL HISTORY: The patient is afebrile. Has been breathing comfortably. Denies any chest pain. No abdominal pain or any worsening pain in the left foot area. PHYSICAL EXAMINATION: Blood pressure is 111/70 with a pulse of 52, temperature 96.3. He is 97% on room. General description is a middle-aged male lying in bed, in no distress. RESPIRATORY SYSTEM: Unlabored breathing, clear to auscultation anteriorly. HEART: S1, S2, regular rate and rhythm. ABDOMEN: Soft, no tenderness. Left foot is currently dressed up with no obvious drainage on the dressing. DIAGNOSTIC IMPRESSION AND PLAN: Patient with left diabetic foot infection with osteomyelitis, methicillin-sensitive Staphylococcus aureus. Waiting for outpatient IV antibiotic arrangement. Local wound care with Aquacel Silver and followup in the next week. Continue supportive care. MMODL / IJN: [id number] /
[2017-04-17 12:08] LABS: Glucose,Whole Blood 70 mg/dL (75-99)
--- NOTE | 2017-04-17 12:16 | P.CONS ---
History of Present Illness - Reason for Consult Consult date: 04/17/17 - History of Present Illness This is a consultation visit for this 46 years old male with a chronic pain syndrome, was admitted to [facility] with the active infection LEFT foot , started a few days ago after he was bitten by a spider, and patient had irrigation and debridement of his left foot and he continues to have, open wound and he is currently on pain medication Elgin 7.5/325 which is not helping to control his pain, he continued to have severe for the pain, though he is getting Elgin 7.5, patient being diagnosed with diabetic neuropathy and is currently on Neurontin, and Elgin, he denies any side effect of the medication he denies any excessive drowsiness, sleepiness and he reported the current medication is not helping to control his pain Past Medical History Past Medical History: Asthma, COPD, Diabetes Mellitus Additional Past Medical History / Comment(s): neuropathy History of Any Multi-Drug Resistant Organisms: None Reported Past Surgical History: Orthopedic Surgery Past Psychological History: ADD/ADHD Smoking Status: Former smoker Past Alcohol Use History: None Reported Past Drug Use History: Marijuana - Past Family History Mother Family Medical History: Diabetes Mellitus Father Family Medical History: Diabetes Mellitus Medications and Allergies Home Medications Medication Instructions Recorded Confirmed Type Gabapentin 1,200 mg PO TID 04/09/17 04/09/17 History Lisinopril [Prinivil] 5 mg PO DAILY 04/09/17 04/09/17 History Albuterol Nebulized [Ventolin 2.5 mg INHALATION Q4H 04/15/17 04/15/17 History Nebulized] ceFAZolin [Kefzol] 2,000 mg IVPB Q8HR #126 bag 04/15/17 Rx Acetaminophen Tab [Tylenol] 650 mg PO Q6HR PRN tab 04/16/17 Rx Atorvastatin [Lipitor] 40 mg PO DAILY #30 tab 04/16/17 Rx Calcium Carbonate [Tums] 1,000 mg PO TID PRN 04/16/17 Rx INSULIN LISPRO (humaLOG) [humaLOG 22 unit SQ AC-TID #1 vial 04/16/17 Rx (formulary)] Insulin Glargine [Lantus] 74 unit SQ HS #0 04/16/17 04/12/17 Rx Naproxen [EC-Naprosyn] 500 mg PO Q12HR #20 tablet. 04/16/17 Rx HYDROcodone/APAP 7.5-325MG [Elgin 1 - 2 tab PO Q4-6H PRN #45 tab 04/17/17 Rx 7.5-325] Allergies Allergy/AdvReac Type Severity Reaction Status Date / Time No Known Allergies Allergy Verified 04/09/17 06:48 Physical Exam Vitals: Vital Signs Temp Pulse Pulse Resp BP Pulse Ox 04/17/17 07:00 96.3 F L 52 L 18 111/70 97 04/16/17 23:00 97.2 F L 70 19 133/75 95 04/16/17 20:36 66 04/16/17 20:26 59 L 04/16/17 15:00 96.3 F L 61 18 141/87 96 Intake and Output 04/16/17 04/17/17 04/17/17 22:59 06:59 14:59 Other: # Voids 3 2 1 Social history : former smoker , NO ETOH , use marijuana . Physical Examinations : 1-Constitutional : Cooperative , not in acute distress . 2-HEENT : nech ; supple , no Lymphadenopathy , no Thyromegaly , :eyes , no icterus, no photophobia . ENT : , normal oropharynx , no Thrush 3- Respiratory : Chest clear to auscultations Bilaterally , no wheezing . 4- Cardiovascular : regular rate and rhythem , S1 , S2 , no S3 , no S4. 5- Gastrointestinal: abdomen soft no tenderness , no organomegally . 6- Genitourinary : Defferred . 7-Integumentary : No cellulitis , no ulcers , normal skin turgor , no cyanotic . 8- neurologic : Cranial nerve II to XII intact , no focal neurological deffecit 9-psychatric : alert , oriented X 3 , appropriate affect , intact judgment and insight . 10-Lymphatic : no Lymphadenopathy. 11- musculoskeltal: Left foot wraped withe dressing , Results CBC & Chem 7: 04/15/17 08:49 04/15/17 08:49 Labs: Abnormal Lab Results - Last 24 Hours (Table) 04/16/17 04/16/17 04/17/17 Range/Units 17:27 20:57 07:23 POC Glucose (mg/dL) 228 H 335 H 177 H (75-99) mg/dL 04/17/17 Range/Units 12:04 POC Glucose (mg/dL) 70 L (75-99) mg/dL Assessment and Plan Plan: Assessment and plan= acute on chronic pain secondary to active infection status post irrigation and debridement of the left foot infection, recommend increasing the Elgin does still 10/325 every 4 hours when necessary, continue Neurontin the same dose, patient will follow with his primary care ,once he is discharged Time with Patient: Less than 30
--- NOTE | 2017-04-17 14:00 | P.DS ---
Providers Date of admission: 04/09/17 06:25 Expected date of discharge: 04/17/17 Attending physician: Luis Estrella Consults: 04/09/17 14:21 Consult Physician Routine Consulting Provider: Huey Mattson Consult Reason/Comments: foot infection Do you want consulting provider notified?: Yes 04/09/17 14:23 Consult Physician Routine Consulting Provider: Gautam Ellis Consult Reason/Comments: foot absess Do you want consulting provider notified?: Yes 04/09/17 14:24 Consult Physician Routine Consulting Provider: Carlos Maher Consult Reason/Comments: foot abscess Do you want consulting provider notified?: Yes 04/10/17 09:09 Consult Physician Routine Consulting Provider: Michael Casarez Consult Reason/Comments: abcess left foot, cellulitis Do you want consulting provider notified?: Yes 04/17/17 10:44 Consult Physician Urgent Consulting Provider: Criselda Lawton Consult Reason/Comments: Uncontrolled left foot pain Do you want consulting provider notified?: Yes Primary care physician: Armaan [facility] Course: FINAL DIAGNOSES: -Left foot abscess in a diabetic with a wound and peripheral neuropathy,status post I&D of the left foot, culture positive for MSSA slowly improving -Leukocytosis likely due to left foot abscess, wound culture positive for MSSA -Diabetes mellitus type 2 chronically on insulin causing peripheral neuropathy. -Chronic obstructive pulmonary disease in an ex-smoker. -Legally blind in the right eye. HOSPTIAL COURSE: 46-year-old male who presented with left foot infection, lateral 3 toes were infected swollen boggy painful. A friend of the patient took a razor blade and sterilized it in alcohol drain the area and there was about a couple pus came out. Presented to the emergency room for left foot abscess and diabetic wound, which appeared to be infected, as well as a right foot wound which was not infected admitted for the same. Home medications reordered, broad-spectrum antibiotics added to patient's regimen, consults to orthopedics, vascular surgery, infectious disease, podiatry, pain management initiated. Imaging obtained. Orthopedics examined the patient and patient was agreeable to incision and drainage of the left foot by orthopedics. Subsequent dressing changes performed by orthopedics. Infectious disease examined the patient was currently on vancomycin and Zosyn, as was continued until cultures returned. Left foot culture returned MSSA and antibiotic therapy adjusted to Unasyn 3 g. Zosyn and vancomycin discontinued, patient will need extensive antibiotic therapy for which he received a PICC line to continue this therapy for 6 weeks vascular surgery evaluated the patient determined that there was nothing to be done from a vascular standpoint. Podiatry examined the patient and recommended hydrogel gauze 2 x 2 every other day to the right plantar hallux. We'll need to follow-up in the wound clinic for further care to the right foot as well as the left plantar foot wound. Patient was further advised that he needs diabetic shoes and insoles to offload both the right plantar hallux lesion in the left foot. Patient complained of uncontrolled left foot pain, stating the pain was not appropriately managed, chronic pain service consulted, examined the patient adjusted pain medications to Marion 10/325 milligram every 4 hours when necessary and the Neurontin should stay at the same dose. Patient's blood glucose was noted to be spiking quite high during his hospital course adjustments made to his prandial doses of insulin however patient was refusing to allow the nurse to administer these doses. Discussion had with attending physician regarding the importance of these doses of insulin as well as what happens with blood glucose after a meal. Patient verbalized understanding and was agreeable to allow the nurse to administer these doses pre-meal to ensure appropriate glucose levels in the blood. Reviewing glucose numbers patient's numbers found to spike again medical record examined patient missed several doses of insulin before meals. Patient refused several doses. Education once again provided and the importance of these doses of insulin patient did verbalize understanding. Patient is tolerating his diet, ambulatory in the room , moving his bowels him a PICC line in place for IV antibiotic therapy for 6 weeks, patient was to be discharged home however decided he would prefer to be at an extended care facility to receive his antibiotic therapy. Insurance authorization has been received and patient will be discharged to [facility] for antibiotic therapy. PHYSICAL EXAM: CARDIOVASCULAR: First and second sounds noted no edema RESPIRATORY: Respiratory effort normal, lung sounds diminished bilaterally MUSCULOSKELETAL:, good range of motion able to wiggle his toes on the left foot neurovascular status intact INTEGUMENT:Left foot dressing and packing are in place, no drainage noted. Patient was seen and examined by nurse practitioner Chio Preciado in all elements of the case discussed with attending Dr. Estrella DISPOSITION: Discharged to [facility]. Patient Condition at Discharge: Stable Plan - Discharge Summary New Discharge Prescriptions: New ceFAZolin [Kefzol] 2,000 mg IVPB Q8HR #126 bag Acetaminophen Tab [Tylenol] 650 mg PO Q6HR PRN tab PRN Reason: Mild Pain Or Fever > 100.5 Atorvastatin [Lipitor] 40 mg PO DAILY #30 tab Calcium Carbonate [Tums] 1,000 mg PO TID PRN PRN Reason: Heartburn INSULIN LISPRO (humaLOG) [humaLOG (formulary)] 22 unit SQ AC-TID #1 vial Naproxen [EC-Naprosyn] 500 mg PO Q12HR #20 tablet. HYDROcodone/APAP 7.5-325MG [[place] 7.5-325] 1 - 2 tab PO Q4-6H PRN #45 tab PRN Reason: Pain Continue Gabapentin 1,200 mg PO TID Lisinopril [Prinivil] 5 mg PO DAILY Albuterol Nebulized [Ventolin Nebulized] 2.5 mg INHALATION Q4H Changed Insulin Glargine [Lantus] 74 unit SQ HS #0 Discharge Medication List Gabapentin 1,200 mg PO TID 04/09/17 [History] Lisinopril [Prinivil] 5 mg PO DAILY 04/09/17 [History] Albuterol Nebulized [Ventolin Nebulized] 2.5 mg INHALATION Q4H 04/15/17 [History ] ceFAZolin [Kefzol] 2,000 mg IVPB Q8HR #126 bag 04/15/17 [Rx] Acetaminophen Tab [Tylenol] 650 mg PO Q6HR PRN tab 04/16/17 [Rx] Atorvastatin [Lipitor] 40 mg PO DAILY #30 tab 04/16/17 [Rx] Calcium Carbonate [Tums] 1,000 mg PO TID PRN 04/16/17 [Rx] INSULIN LISPRO (humaLOG) [humaLOG (formulary)] 22 unit SQ AC-TID #1 vial [Rx] Insulin Glargine [Lantus] 74 unit SQ HS #0 04/16/17 [Rx] Naproxen [EC-Naprosyn] 500 mg PO Q12HR #20 tablet. 04/16/17 [Rx] HYDROcodone/APAP 7.5-325MG [Mar[place] 7.5-325] 1 - 2 tab PO Q4-6H PRN #45 tab [Rx] Follow up Appointment(s)/Referral(s): Huey Mattson DPM [STAFF PHYSICIAN] - 1 Week [facility], [NON-STAFF] - Armaan León DO [Primary Care Provider] - 04/18/17 1:00 pm [facility], [REFERRING] - Gautam Ellis DO [Doctor of Osteopathic Medicine] - As Needed Carlos Maher MD [STAFF PHYSICIAN] - 04/25/17 11:45 am Ambulatory/Diagnostic Orders: Complete Blood Count w/diff [LAB.AMB] Time Frame: 1 Week, Location: Determined By Patient Comprehensive Metabolic Panel [LAB.AMB] Time Frame: 1 Week, Location: Determined By Patient Patient Instructions/Handouts: Foot Care for People with Diabetes (DC), Type 2 Diabetes in Adults (DC), How to Care for Your Peripherally Inserted Central Catheter (DC) Discharge Disposition: TRANSFER TO SNF/ECF
[2017-04-17 14:33] VITALS: BP 131/60; PULSE 67; RESP 16; TEMP 98.9
--- NOTE | 2017-04-17 21:29 | DS ---
DISCHARGE SUMMARY DATE OF SERVICE: 04/17/17. ATTENDING NOTE: This patient was seen and examined by me. I discussed with nurse practitioner, Ms. Preciado. The patient is status post left foot I and D for abscess growing MSSA. The patient was evaluated, now been accepted to the [facility]. The patient did wanted to get IV pain med. Did explain to him that he is already getting a significant amount of pain medications and for acute condition like this, IV will be dangerous for him. The patient has been sleepy since admission for most parts and I am afraid this could be dangerous for him, even causing . He did insist. I did explain to him. When he insisted, I did get a pain consult in place otherwise. EXAMINATION: Lungs are clear. CARDIOVASCULAR: First and second sounds normal. Accu-Cheks are noted. It may be noted that the patient has been refusing his Humalog insulin at times. He would like to explain to him the importance of taking his insulin. The patient disposed to [facility]. IV Omero as per Dr. Maher. MMODL / IJN: [id number] /
== END 2017-04-17 15:35 | DRG 872 ==
LOC: EC 04:40 → 4MS4W 06:25
PROVIDERS: ADMIT Hospitalist; ATTEND Hospitalist
PROC: 0J9R0ZX Drainage of Left Foot Subcutaneous Tissue and Fascia, Open Approach, Diagnostic (ICD-10-PCS; 2017-04-10)
PROC: B54NZZA Ultrasonography of Left Upper Extremity Veins, Guidance (ICD-10-PCS; 2017-04-16)
PROC: 02HV33Z Insertion of Infusion Device into Superior Vena Cava, Percutaneous Approach (ICD-10-PCS; principal; 2017-04-16 10:32)
PROC: B518ZZA Fluoroscopy of Superior Vena Cava, Guidance (ICD-10-PCS; 2017-04-16 10:32)
DX: A41.9 Sepsis, unspecified organism (principal); E11.42 Type 2 diabetes mellitus with diabetic polyneuropathy; E11.621 Type 2 diabetes mellitus with foot ulcer; L02.612 Cutaneous abscess of left foot; L03.116 Cellulitis of left lower limb; M86.9 Osteomyelitis, unspecified; J44.9 Chronic obstructive pulmonary disease, unspecified; F90.9 Attention-deficit hyperactivity disorder, unspecified type; B95.61 Methicillin susceptible Staphylococcus aureus infection as the cause of diseases classified elsewhere; E11.65 Type 2 diabetes mellitus with hyperglycemia; G89.4 Chronic pain syndrome; E11.628 Type 2 diabetes mellitus with other skin complications; E11.69 Type 2 diabetes mellitus with other specified complication; L97.519 Non-pressure chronic ulcer of other part of right foot with unspecified severity; S91.302A Unspecified open wound, left foot, initial encounter; L84 Corns and callosities; H54.61 Unqualified visual loss, right eye, normal vision left eye; Z87.891 Personal history of nicotine dependence; Z79.4 Long term (current) use of insulin; Z79.899 Other long term (current) drug therapy; Z83.3 Family history of diabetes mellitus
CPT/HCPCS: 36415; 36569; 76937; 77001; 80048; 80053; 80061; 80202; 82009; 83036; 83605; 83930; 85025; 85610; 85652; 85730; 87040; 87070; 87075; 87077; 87186; 87205; 93005; 94640; 94760; 96365; 96368; 96375; 99285

== ENCOUNTER → 2018-04-24 | Outpatient (CLI) | payer OTHER ==
[2018-04-24 09:09] LABS: Blood Urea Nitrogen 14 mg/dL (9-20)
--- NOTE | 2018-04-24 10:37 | CT ---
EXAMINATION TYPE: CT lower leg RT w con DATE OF EXAM: 04/24/2018 COMPARISON: None HISTORY: Cutaneous abscess of right lower limb CT DLP: 949 mGycm Automated exposure control for dose reduction was used. CONTRAST: Performed without and with IV Contrast, patient injected with 100 ml mL of Isovue 300. FINDINGS: There is extensive circumferential soft tissue swelling and subcutaneous edema surrounding the right lower extremity beginning at the knee and worsening with a gradient effect dependently and inferiorly . Soft tissue density is seen at the plantar aspect of the forefoot measuring at least 5.9 x 3.1 cm w ith a skin defect extending to the soft tissue density on image 137. This extends over the first thro ugh fourth metatarsals. No drainable fluid collection is seen. This could represent soft tissue mass and neoplasm or extensive phlegmonous changes. This does appear to extend anteriorly on image 138 to have a anterior posterior dimension of 6.2 cm. There is some periosteal reaction of the base of the f irst metatarsal. No discrete erosion is seen to suggest definitive evidence of osteomyelitis. No acut e fracture or dislocation of the osseous structures. The above-mentioned masslike density encases the flexor tendons. The popliteal artery and its branches appear patent with three-vessel runoff at the ankle joint. IMPRESSION: MASSLIKE SOFT TISSUE DENSITY MEASURING AT LEAST 6 CM AT THE PLANTAR ASPECT OF THE FOREFOOT DEEP TO TH E BASE OF THE FIRST THROUGH FOURTH METATARSALS WITH CIRCUMFERENTIAL RIGHT LOWER EXTREMITY SUBCUTANEOU S EDEMA. THIS COULD REPRESENT SOFT TISSUE NEOPLASM OR EXTENSIVE PHLEGMONOUS CHANGES THERE IS NO PE RIPHERALLY ENHANCING DRAINABLE FLUID COLLECTION/ABSCESS. TARGETED ULTRASOUND COULD ASSESS FOR INTERNA L VASCULARITY OF NEOPLASM OR PERIPHERAL VASCULARITY OF ABSCESS. ALTERNATIVELY ENHANCED MRI COULD BE P ERFORMED FOR FURTHER CHARACTERIZATION.
== END | disposition home or self-care (01) ==
LOC: RADCTMAIN 08:24
PROVIDERS: ATTEND Thoracic Surgery (Cardiothoracic Vascular Surgery)
DX: R60.0 Localized edema (principal)
CPT/HCPCS: 82565; 84520; 73701; 36415; Q9967

== ENCOUNTER → 2018-04-24 | Outpatient (CLI) | payer OTHER ==
--- NOTE | 2018-04-24 16:03 | MR ---
EXAMINATION TYPE: MR foot RT wo/w con DATE OF EXAM: 04/24/2018 COMPARISON: Relation CT 04/24/2018 HISTORY: 47-year-old male ABSCESS RT FOOT, ABN CT Technique: Multiplanar, multisequence images of the right foot were obtained before and after adminis tration of 10 mL intravenous Gadavist gadolinium contrast. FINDINGS: There is a metallic foreign body within the medial plantar soft tissues of the midfoot centered at th e site of extensive soft tissue abnormality and overlying skin and soft tissue breakdown. There is extensive myositis of the underlying medial plantar musculature and some scattered mild teno synovial fluid, more moderate along the plantar flexor tendons at the level of the knot of Blas. There is amputation of the great toe at the level of the proximal shaft of the first metatarsal. No well-defined, peripherally enhancing fluid collection is identified. Severe generalized soft tissue edema especially dorsally. No well-defined soft tissue mass is not clearly seen. Susceptibility artifact from the retained forei gn body causes some limitation in assessment as does patient motion artifact. No suspicious bone marrow replacement. IMPRESSION: 1. Great toe amputation at the level of the first metatarsal shaft. No evidence for osteomyelitis. 2. However, there is severe diffuse soft tissue swelling, likely cellulitis, as well as a wound/ulcer along the plantar midfoot and a retained metallic foreign body embedded at the wound site. 3. There is severe thickening and edematous change of the medial plantar musculature at this level turcios ggesting infectious myositis along with more homogeneous mild enhancement of thickened soft tissue wh ich extends to the osteotomy site which may represent scar and granulation tissue. No discrete absces s is identified. 4. Scattered mild tenosynovial fluid along the plantar aspect of the foot is likely reactive.
== END ==
LOC: RADMRIMAIN 14:18
PROVIDERS: ATTEND Thoracic Surgery (Cardiothoracic Vascular Surgery)
DX: M89.371 Hypertrophy of bone, right ankle and foot (principal); R60.0 Localized edema; Z89.411 Acquired absence of right great toe
CPT/HCPCS: 73720; A9585

== ENCOUNTER → 2021-03-06 | Outpatient (CLI) | payer MEDICARE, OTHER ==
--- NOTE | 2021-03-06 14:01 | XR ---
EXAMINATION TYPE: XR tibia fibula RT DATE OF EXAM: 03/06/2021 CLINICAL HISTORY: pain TECHNIQUE: AP and lateral images of the right tibia and fibula are obtained. COMPARISON: None. FINDINGS: There is no acute fracture/dislocation evident. The joint spaces appear within normal john its. The overlying soft tissue appears unremarkable. IMPRESSION: There is no acute fracture or dislocation seen. ICD 10 NO FRACTURE, INITIAL EVALUATION
--- NOTE | 2021-03-06 14:26 | XR ---
EXAMINATION TYPE: XR forearm LT DATE OF EXAM: 03/06/2021 CLINICAL HISTORY: pain TECHNIQUE: Frontal and lateral images of the left forearm are obtained. COMPARISON: None. FINDINGS: There is no acute fracture/dislocation evident. The joint spaces appear within normal limi ts. The overlying soft tissue appears unremarkable. IMPRESSION: There is no acute fracture or dislocation. ICD 10 NO FRACTURE, INITIAL EVALUATION
--- NOTE | 2021-03-06 14:28 | XR ---
EXAMINATION TYPE: XR orbit complete bilateral DATE OF EXAM: 03/06/2021 COMPARISON: NONE HISTORY: M54.5, M79.632, S02.31XA, S82.401A TECHNIQUE: 4 views of the orbits are submitted. FINDINGS: Mucosal thickening of the maxillary sinuses identified. There is no evidence for displaced fracture within the [id number]. IMPRESSION: Chronic sinusitis.
--- NOTE | 2021-03-06 14:38 | XR ---
EXAMINATION TYPE: XR lumbosacral spine min 4V DATE OF EXAM: 03/06/2021 CLINICAL HISTORY: pain COMPARISON: NONE TECHNIQUE: Frontal, lateral, and oblique images of the lumbar spine are obtained. FINDINGS: There are 5 lumbar type vertebral bodies identified. The lumbar spine shows satisfactory alignment without evidence of acute fracture or dislocation. Vertebral body heights are within normal limits. Moderate to severe degenerative disc space narrowing L4-5 and L5-S1. The overlying soft ti ssue appears unremarkable. IMPRESSION: No acute fracture or dislocation is seen in the lumbar spine.ICD 10 NO FRACTURE, INITIAL EVALUATION
== END | disposition home or self-care (01) ==
LOC: RADXRMAIN 13:15
PROVIDERS: ATTEND Internal Medicine
DX: M79.661 Pain in right lower leg (principal); M79.632 Pain in left forearm; J32.9 Chronic sinusitis, unspecified; M54.5 Low back pain
CPT/HCPCS: 70200; 72110

== ENCOUNTER 2021-03-10 20:40 | Emergency (ER) | payer MEDICARE, OTHER ==
[2021-03-10 21:25] VITALS: BP 149/90; RESP 18; TEMP 98
[2021-03-10] MEDS ORDERED: IPRATROPIUM-ALBUTEROL 3 ML NEB INHALATION STA (22:32)
[2021-03-10] MEDS ORDERED: predniSONE 20 MG TAB PO STA (22:32)
[2021-03-10] MEDS ORDERED: Acetaminophen-Codeine 300-30mg TAB PO STA (22:32)
[2021-03-10] MEDS ORDERED: IBUPROFEN 800 MG TAB PO STA (22:32)
[2021-03-10] MEDS ORDERED: ACET/COD 300 MG/30 MG STARTER PACK 6 TAB BTL PO STA (22:32)
--- NOTE | 2021-03-10 22:33 | ED ---
URI HPI - General Chief Complaint: Headache Stated Complaint: KRISS Time Seen by Provider: 03/10/21 21:52 Source: patient, RN notes reviewed, old records reviewed Mode of arrival: ambulatory Limitations: no limitations - History of Present Illness Initial Comments: This is a 50-year-old male to the emergency department today. Patient presents today for evaluation of cough and congestion with mild shortness of breath. Patient has no recent sick contacts no recent travel history. Patient did have covert a few months ago and states his cough has been persistent and sometimes is worse. The cough when he is coughing causes him to have a mild headache. There is no vomiting that is no trauma there is no current fevers. Patient is not short of breath when he is not having a coughing fit. Patient does have history of asthma and COPD. No other complaints MD Complaint: cough, other (Coughing induced headaches) -: week(s) Severity: mild Severity scale (1-10): 2 Quality: sharp (Mild chest pain during cough) Consistency: intermittent, now resolved Worsens With: nothing Associated Symptoms: headache, cough Treatments Prior to Arrival: none - Related Data Home Medications Medication Instructions Recorded Confirmed Gabapentin 1,200 mg PO TID 04/09/17 05/14/18 lisinopriL [Prinivil] 5 mg PO DAILY 04/09/17 05/14/18 Albuterol Nebulized [Ventolin 2.5 mg INHALATION Q4H 04/15/17 05/14/18 Nebulized] glyBURIDE [Diabeta] 5 mg PO AC-BRKFST 01/22/18 05/14/18 Previous Rx's Medication Instructions Recorded Acetaminophen Tab [Tylenol] 650 mg PO Q6HR PRN tab 04/16/17 Atorvastatin [Lipitor] 40 mg PO DAILY #30 tab 04/16/17 Calcium Carbonate [Tums] 1,000 mg PO TID PRN 04/16/17 INSULIN LISPRO (humaLOG) [humaLOG] 22 unit SQ AC-TID #1 vial 04/16/17 Insulin Glargine [Lantus Vial] 74 unit SQ HS #0 04/16/17 HYDROcodone/APAP 7.5-325MG [[place] 1 - 2 tab PO Q4-6H PRN #45 tab 04/17/17 7.5-325] Azithromycin [Zithromax Z-pack (6 0 mg PO DIRECTED #1 packet 03/10/21 tabs)] predniSONE 50 mg PO DAILY #5 tab 03/10/21 Allergies Allergy/AdvReac Type Severity Reaction Status Date / Time No Known Allergies Allergy Verified 03/10/21 21:25 Review of Systems ROS Statement: Those systems with pertinent positive or pertinent negative responses have been documented in the HPI. ROS Other: All systems not noted in ROS Statement are negative. Past Medical History Past Medical History: Asthma, COPD, CVA/TIA, Diabetes Mellitus Additional Past Medical History / Comment(s): neuropathy. TIA 01-23-18 History of Any Multi-Drug Resistant Organisms: MRSA Date of last positivie culture/infection: 01/07/18 MDRO Source:: FOOT Past Surgical History: Orthopedic Surgery Past Psychological History: ADD/ADHD Smoking Status: Current every day smoker Past Alcohol Use History: None Reported Past Drug Use History: Marijuana - Past Family History Mother Family Medical History: Diabetes Mellitus Father Family Medical History: Diabetes Mellitus General Exam General appearance: alert, in no apparent distress Head exam: Present: atraumatic, normocephalic, normal inspection Eye exam: Present: normal appearance, PERRL, EOMI. Absent: scleral icterus, conjunctival injection, periorbital swelling ENT exam: Present: normal exam, mucous membranes moist Neck exam: Present: normal inspection. Absent: tenderness, meningismus, lymphadenopathy Respiratory exam: Present: normal lung sounds bilaterally. Absent: respiratory distress, wheezes, rales, rhonchi, stridor Cardiovascular Exam: Present: regular rate, normal rhythm, normal heart sounds. Absent: systolic murmur, diastolic murmur, rubs, gallop, clicks GI/Abdominal exam: Present: soft, normal bowel sounds. Absent: distended, tenderness, guarding, rebound, rigid Extremities exam: Present: normal inspection, full ROM, normal capillary refill. Absent: tenderness, pedal edema, joint swelling, calf tenderness Back exam: Present: normal inspection Neurological exam: Present: alert, oriented X3, CN II-XII intact Psychiatric exam: Present: normal affect, normal mood Skin exam: Present: warm, dry, intact, normal color. Absent: rash Course Vital Signs 03/10/21 03/10/21 03/10/21 21:22 23:13 23:26 Temperature 98 F Pulse Rate 89 96 92 Respiratory 18 Rate Blood Pressure 149/90 O2 Sat by Pulse 96 Oximetry - Reevaluation(s) Reevaluation #1: 03/11/21 03:08 Medical record is reviewed Reevaluation #2: 03/11/21 03:08 Patient symptoms are improved Reevaluation #3: 03/11/21 03:08 Patient informed results and questions have been answered Medical Decision Making - Medical Decision Making 50 male to ER for evaluation regarding persisting cough causing headache and cough. Ration his cough is in persistence of coronavirus. With concern for low given Tylenol patient resting comfortably L x-ray is clear and okay for discharge home - Radiology Data Radiology results: report reviewed (Chest x-rays negative for acute disease), image reviewed Disposition Clinical Impression: Upper respiratory infection, Headache Disposition: HOME SELF-CARE Condition: Good Instructions (If sedation given, give patient instructions): Acute Headache (ED), Bronchospasm (ED) Prescriptions: predniSONE 50 mg PO DAILY #5 tab Azithromycin [Zithromax Z-pack (6 tabs)] 0 mg PO DIRECTED #1 packet Is patient prescribed a controlled substance at d/c from ED?: No Referrals: Armaan León DO [Primary Care Provider] - 1-2 days
--- NOTE | 2021-03-10 22:55 | XR ---
EXAMINATION TYPE: XR chest 2V DATE OF EXAM: 03/10/2021 COMPARISON: 11/19/2010 HISTORY: Cough TECHNIQUE: 2 views FINDINGS: There is some atelectasis left lung base. There is subsegmental atelectasis right lung base . Heart and mediastinum are normal. There are no hilar masses. There is no pleural effusion. IMPRESSION: Bilateral atelectasis not significantly different than old exam. Normal heart.
[2021-03-10 23:28] VITALS: PULSE 92
== END 2021-03-11 00:22 | disposition home or self-care (01) ==
LOC: EC 20:40
DX: J06.9 Acute upper respiratory infection, unspecified (principal); E11.40 Type 2 diabetes mellitus with diabetic neuropathy, unspecified; J44.9 Chronic obstructive pulmonary disease, unspecified; F17.200 Nicotine dependence, unspecified, uncomplicated; F12.90 Cannabis use, unspecified, uncomplicated; Z79.4 Long term (current) use of insulin; Z79.52 Long term (current) use of systemic steroids; Z79.51 Long term (current) use of inhaled steroids; Z79.899 Other long term (current) drug therapy; Z83.3 Family history of diabetes mellitus; Z86.73 Personal history of transient ischemic attack (TIA), and cerebral infarction without residual deficits
CPT/HCPCS: 94640; 71046; 99284; J7512

== ENCOUNTER → 2021-03-28 | Outpatient (CLI) | payer MEDICARE, OTHER | LOC: CPPFTMAIN 14:34 | PROVIDERS: ATTEND Nurse Practitioner Family | DX: Z53.9 Procedure and treatment not carried out, unspecified reason (principal) ==

== ENCOUNTER 2021-11-07 12:37 | Inpatient (IN) | payer MEDICARE, OTHER ==
[2021-11-07] MEDS ORDERED: SODIUM CHLORIDE 0.9% 500 ML 500 ML IV STA (13:34)
[2021-11-07] MEDS ORDERED: SODIUM CHLORIDE 0.9% 1,000 ML IV STA (13:34)
[2021-11-07] MEDS ORDERED: PIPERACILLIN-TAZOBACTAM 3.375 GM in SODIUM CHLORIDE 0.9% 100 ML IVPB STA (13:34)
[2021-11-07] MEDS ORDERED: VANCOMYCIN IV PER PHARMACY 1 EACH MISC MISCELLANE PRN (13:35)
[2021-11-07] MEDS ORDERED: VANCOMYCIN 1,500 MG in SODIUM CHLORIDE 0.9% 250 ML IVPB ONE (14:00)
[2021-11-07 14:01] LABS: Basophils # (A) 0.1 k/uL (0-0.2); Basophils % (A) 1 %; Eosinophils # (A) 0.1 k/uL (0-0.7); Eosinophils % (A) 1 %; HCT 37.3 % (39.0-53.0); HGB 11.6 gm/dL (13.0-17.5); Lymphocytes # (A) 0.9 k/uL (1.0-4.8); Lymphocytes % (A) 11 %; MCH 29.4 pg (25.0-35.0); MCV 94.8 fL (80.0-100.0); Mean Platelet Volume 7.6; Monocytes # (A) 0.4 k/uL (0-1.0); Monocytes % (A) 4 %; Neutrophils # (A) 7.1 k/uL (1.3-7.7); Neutrophils % (A) 81 %; Platelet Count 309 k/uL (150-450); RBC 3.94 m/uL (4.30-5.90); RDW 12.5 % (11.5-15.5); WBC 8.7 k/uL (3.8-10.6)
[2021-11-07] MEDS ORDERED: NALOXONE 0.4 MG/ML 1 ML VIAL IV PRN (14:06)
[2021-11-07] MEDS ORDERED: ACETAMINOPHEN TAB 325 MG TAB PO PRN (14:06)
--- NOTE | 2021-11-07 14:11 | ED ---
General Adult HPI - General Chief complaint: Extremity Problem,Nontraumatic Stated complaint: diabetic wound lt foot Time Seen by Provider: 11/07/21 13:25 Source: patient, RN notes reviewed, old records reviewed Mode of arrival: wheelchair Limitations: no limitations - History of Present Illness Initial comments: 50 yo male presenting for evaluation of left leg pain and swelling. Patient has history of diabetes. He's noticed over the past 24-48 hours that he had some swelling and pain which began in his great toe on the left foot and has progressed up his leg. He started Bactrim at home over the past 24 hours. This did not make any improvement in his symptoms. He denies fever. He has a history of a dictation in the right foot at an outside hospital. - Related Data Home Medications Medication Instructions Recorded Confirmed Gabapentin [Neurontin] 400 mg PO BID 11/07/21 11/07/21 Insulin Glargine [Lantus Vial] 70 unit SQ BID 11/07/21 11/07/21 lisinopriL 40 mg PO DAILY 11/07/21 11/07/21 Allergies Allergy/AdvReac Type Severity Reaction Status Date / Time No Known Allergies Allergy Verified 11/07/21 14:00 Review of Systems ROS Statement: Those systems with pertinent positive or pertinent negative responses have been documented in the HPI. ROS Other: All systems not noted in ROS Statement are negative. Past Medical History Past Medical History: Asthma, COPD, CVA/TIA, Diabetes Mellitus Additional Past Medical History / Comment(s): neuropathy. TIA 01-23-18 History of Any Multi-Drug Resistant Organisms: MRSA Date of last positivie culture/infection: 01/07/18 MDRO Source:: FOOT Past Surgical History: Orthopedic Surgery Past Psychological History: ADD/ADHD Smoking Status: Former smoker Past Alcohol Use History: None Reported Past Drug Use History: Marijuana - Past Family History Mother Family Medical History: Diabetes Mellitus Father Family Medical History: Diabetes Mellitus General Exam Limitations: no limitations General appearance: alert, in no apparent distress Head exam: Present: atraumatic, normocephalic Eye exam: Present: normal appearance, PERRL ENT exam: Present: normal exam Neck exam: Present: normal inspection. Absent: tenderness, meningismus Respiratory exam: Present: normal lung sounds bilaterally. Absent: respiratory distress, wheezes Cardiovascular Exam: Present: regular rate, normal rhythm GI/Abdominal exam: Present: soft. Absent: distended, tenderness, guarding Extremities exam: Present: tenderness, normal capillary refill, other (Erythema from the great toe to the mid thigh. There is soft tissue swelling. Skin breakdown at the plantar surface of the great toe. Cap refill is delayed.). Absent: pedal edema Neurological exam: Present: alert, oriented X3, CN II-XII intact. Absent: motor sensory deficit Psychiatric exam: Present: normal affect, normal mood Course Vital Signs 11/07/21 12:43 Temperature 97.7 F Pulse Rate 97 Respiratory 20 Rate Blood Pressure 138/84 O2 Sat by Pulse 96 Oximetry - Reevaluation(s) Reevaluation #1: 11/07/21 14:09 CT of the leg is ordered, results pending, Dr. Carter will follow-up on results. Medical Decision Making - Medical Decision Making 50-year-old male with pain and swelling in the left leg, he has soft tissue infection which seems to be progressing from the great toe on the left and there is streaking erythema into the mid thigh. Laboratory studies, blood cultures are obtained. He started on broad-spectrum antibiotics. I did discuss case with Dr. Swenson as noted who will admit. Also CT has been ordered was all pending. - Lab Data Result diagrams: 11/07/21 13:48 Lab Results 11/07/21 Range/Units 13:48 WBC 8.7 (3.8-10.6) k/uL RBC 3.94 L (4.30-5.90) m/uL Hgb 11.6 L (13.0-17.5) gm/dL Hct 37.3 L (39.0-53.0) % MCV 94.8 (80.0-100.0) fL MCH 29.4 (25.0-35.0) pg MCHC 31.0 (31.0-37.0) g/dL RDW 12.5 (11.5-15.5) % Plt Count 309 (150-450) k/uL MPV 7.6 Neutrophils % 81 % Lymphocytes % 11 % Monocytes % 4 % Eosinophils % 1 % Basophils % 1 % Neutrophils # 7.1 (1.3-7.7) k/uL Lymphocytes # 0.9 L (1.0-4.8) k/uL Monocytes # 0.4 (0-1.0) k/uL Eosinophils # 0.1 (0-0.7) k/uL Basophils # 0.1 (0-0.2) k/uL Disposition Clinical Impression: Cellulitis of left lower extremity Disposition: ADMITTED IP TO THIS HOSP Condition: Stable Is patient prescribed a controlled substance at d/c from ED?: No Referrals: Mesha Christianson MD [Primary Care Provider] - 1-2 days Time of Disposition: 14:11
[2021-11-07 14:31] LABS: ALT 25 U/L (4-49); AST 18 U/L (17-59); African American GFR (CKD) >90 (>60 ml/min/1.73 sqM); Albumin 2.8 g/dL (3.5-5.0); Alkaline Phosphatase 115 U/L (38-126); Anion Gap 8 mmol/L; Blood Urea Nitrogen 19 mg/dL (9-20); Carbon Dioxide 22 mmol/L (22-30); Chloride 94 mmol/L (98-107); Non-African American GFR(CKD) 82 (>60 ml/min/1.73 sqM); Sodium 124 mmol/L (137-145); Total Bilirubin 0.3 mg/dL (0.2-1.3); Total Protein 5.7 g/dL (6.3-8.2)
[2021-11-07 14:40] LABS: Glucose 637 mg/dL (74-99)
[2021-11-07] MEDS ORDERED: INSULIN REGULAR 100 UNIT/ML VIAL (IV) IV ONE (14:50)
--- NOTE | 2021-11-07 14:57 | CT ---
EXAMINATION TYPE: CT lower extremity LT wo con DATE OF EXAM: 11/07/2021 COMPARISON: None HISTORY: Left leg redness and pain. CT DLP: 877.5 mGycm Automated exposure control for dose reduction was used. FINDINGS: There is subcutaneous edema. Osseous structures intact. No acute fracture. No destructive changes see n. Hypertrophic changes of the patella incidentally noted multiple left-sided inguinal lymph nodes ar e seen with the largest measuring a short axis of 1.6 cm compatible with pathologic adenopathy. IMPRESSION: DIFFUSE SUBCUTANEOUS EDEMA CORRELATE FOR CELLULITIS OR OTHER REASONS FOR A DIFFUSE LOWER EXTREMITY ED LAURITA INCLUDING POSSIBLE DVT. LEFT INGUINAL LYMPHADENOPATHY..
[2021-11-07] MEDS: HYDROmorphone 0.5 MG/0.5 ML SYRINGE IVP PRN ×3 (15:20→23:26)
--- NOTE | 2021-11-07 15:22 | P.HPIM ---
History of Present Illness H&P Date: 11/07/21 This is a pleasant 50-year-old male who presented to the emergency department with left lower extremity redness and swelling and also left toe possible infection with worsening. Patient reports that he had some Bactrim at home and started himself and noticed a streak up the left calf extending to the thigh with increased redness and swelling and severe pain 10/10 and presented to the emergency department for further evaluation. 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 Patient denies any further illicit drug use and repor ts to quitting smoking approximately 8-1/2 years ago and has not had a drink in the last 12 years. Patient diagnosed with diabetes and initially started on oral diabetic agents although unable to tolerate due to excessive diarrhea and is maintained on insulin. Patient appears noncompliant with medications and will obtain hemoglobin A1c is blood sugars are extremely high and found to be over 600 in the ER. Will resume home medications and initiate sliding scale along with Accu-Cheks before meals and at bedtime. Patient started on broad- spectrum antibiotics and was given a dose of Zosyn and will continue with IV vancomycin and infectious disease is being consulted. CT of the lower extremity ordered as patient is in extreme pain and unable to touch the left lower extremity. Patient is being admitted for left lower extremity cellulitis and awaiting ID consult. Labs: WBC is 8.7, hemoglobin is 11.6, platelets are 309, sodium is 124, potassium 5.0, BUN 19, creatinine 1.05, glucose 637, lactic acid 2.1, calcium 8.0 Review Of Systems: Constitutional: No fever, no chills, no night sweats. No weight change. No weakness, fatigue or lethargy. No daytime sleepiness. EENT: No headache. No blurred vision or double vision, no loss of vision. No loss of Hearing, no ringing in the ears, no dizziness. No nasal drainage or congestion. No epistaxis. No sore throat. Lungs: No shortness of breath, cough, no sputum production. No wheezing. Cardiovascular: No chest pain, no lower extremity edema. No palpitations. No paroxysmal nocturnal dyspnea. No orthopnea. No lightheadedness or dizziness. No syncopal episodes. Abdominal: No abdominal pain. No nausea, vomiting. No diarrhea. No constipation. No bloody or tarry stools.. No loss of appetite. Genitourinary: No dysuria, increased frequency, urgency. No urinary retention. Musculoskeletal: No myalgias. No muscle weakness, reports gait dysfunction secondary to left foot pain, no frequent falls. No back pain. No neck pain. Integumentary: Reports diabetic ulcer or of the left great toe and in between to the second digit, no lesions. No rash or pruritus. No unusual bruising. No change in hair or nails. Neurologic: No aphasia. No facial droop. No change in mentation. No head injury. No headache. No paralysis. No paresthesia. Psychiatric: No depression. No anxiety. No mood swings. Endocrine: Reports elevated and abnormal blood sugars. No weight change. No excessive sweating or thirst. No cold intolerance. Rest of the 14 point review of systems negative except for mentioned above Physical exam: Gen: This is a 50-year-old male awake, alert and oriented 3, well-developed, well-nourished. HEENT: Head is atraumatic, normocephalic. Pupils equal, round. Sclerae is anicteric. NECK: Supple. No JVD. No lymphadenopathy. No thyromegaly. LUNGS: Clear to auscultation. No wheezes or rhonchi. No intercostal retractions. HEART: Regular rate and rhythm. No murmur. ABDOMEN: Soft. Bowel sounds are present. No masses. No tenderness. EXTREMITIES: No pedal edema. No calf tenderness. Left lower extremity redness and swelling and a diabetic wound or ulcer noted in between the great toe and first digit with maceration noted NEUROLOGICAL: Patient is awake, alert and oriented x3. Cranial nerves 2 through 12 are grossly intact. Assessment: Left foot pain possible cellulitis of the left lower extremity Diabetic ulcer in between great toe and first digit Diabetes mellitus uncontrolled with hyperglycemia Lactic acidosis, present on admission Hyponatremia History of asthma/COPD, not in acute exacerbation CVA/TIA history Past medical history of nicotine abuse Occasional THC use GI prophylaxis DVT prophylaxis Full code Plan: Patient being started on empiric antibiotics in the form of IV vancomycin and was also given a dose of Zosyn in the ER. Consult to infectious disease and appreciate input and recommendations. CT of the left lower extremity to evaluate for possible cellulitis or underlying osteomyelitis Obtain venous Doppler to rule out DVT Continue IV fluids and recommend repeat labs Resume appropriate home medications Tight glycemic control, will initiate sliding scale along with long acting and resume home medication and recommend Accu-Cheks before meals and at bedtime, ordered hemoglobin A1c which is pending Encourage the patient elevate left lower extremity while at rest Patient with hyponatremia with a sodium of 124 and will hydrate and continue with fluid restrictions and repeat labs Pain management GI and DVT prophylaxis The impression and plan of care has been dictated by Juanita Walsh, Nurse Practitioner as directed. Dr. Emma MD I have performed a history and examination and MDM of this patient, discussed the same with the dictator, and agree with the dictator's assessment and plan as written ,documented as a scribe. Based on total visit time, I have performed more than 50% of the visit. Past Medical History Past Medical History: Asthma, COPD, CVA/TIA, Diabetes Mellitus Additional Past Medical History / Comment(s): neuropathy. TIA 01-23-18 History of Any Multi-Drug Resistant Organisms: MRSA Date of last positivie culture/infection: 01/07/18 MDRO Source:: FOOT Past Surgical History: Orthopedic Surgery Past Psychological History: ADD/ADHD Smoking Status: Former smoker Past Alcohol Use History: None Reported Past Drug Use History: Marijuana - Past Family History Mother Family Medical History: Diabetes Mellitus Father Family Medical History: Diabetes Mellitus Medications and Allergies Home Medications Medication Instructions Recorded Confirmed Type Gabapentin [Neurontin] 400 mg PO BID 11/07/21 11/07/21 History Insulin Glargine [Lantus Vial] 70 unit SQ BID 11/07/21 11/07/21 History lisinopriL 40 mg PO DAILY 11/07/21 11/07/21 History Allergies Allergy/AdvReac Type Severity Reaction Status Date / Time No Known Allergies Allergy Verified 11/07/21 14:00 Physical Exam Vitals: Vital Signs Temp Pulse Resp BP Pulse Ox 11/07/21 12:43 97.7 F 97 20 138/84 96 Intake and Output 11/06/21 11/07/21 11/07/21 22:59 06:59 14:59 Other: Weight 87.997 kg Results CBC & Chem 7: 11/07/21 13:48 11/07/21 13:48 Labs: Abnormal Lab Results - Last 24 Hours (Table) 11/07/21 11/07/21 Range/Units 13:48 13:48 RBC 3.94 L (4.30-5.90) m/uL Hgb 11.6 L (13.0-17.5) gm/dL Hct 37.3 L (39.0-53.0) % Lymphocytes # 0.9 L (1.0-4.8) k/uL Plasma Lactic Acid Cezar 2.1 H* (0.7-2.0) mmol/L Thrombosis Risk Factor Assmnt - DVT/VTE Prophylaxis DVT/VTE Prophylaxis: Pharmacologic Prophylaxis ordered Assessment and Plan Time with Patient: Greater than 30
[2021-11-07] MEDS: HYDROcodone/APAP 10-325MG 1 EACH TAB PO PRN ×2 (15:33→21:09)
[2021-11-07] MEDS: INSULIN DETEMIR (LEVEMIR) 100 UNIT/ML SYR SQ SCH ×2 (15:34→23:09)
--- NOTE | 2021-11-07 16:16 | US ---
EXAMINATION TYPE: US venous doppler duplex LE LT DATE OF EXAM: 11/07/2021 3:54 PM COMPARISON: NONE CLINICAL HISTORY: Redness and swelling. Edema SIDE PERFORMED: Left TECHNIQUE: The lower extremity deep venous system is examined utilizing real time linear array sonog millie with graded compression, doppler sonography and color-flow sonography. VESSELS IMAGED: Common Femoral Vein Deep Femoral Vein Greater Saphenous Vein * Femoral Vein Popliteal Vein Small Saphenous Vein * Proximal Calf Veins (* superficial vessels) Left Leg: Negative for DVT IMPRESSION: Grayscale, color doppler, spectral doppler imaging performed of the deep veins of the lo wer extremities. There is normal flow, compressibility, vascular waveforms.
[2021-11-07 19:09] LABS: Glucose,Whole Blood 155 mg/dL (75-99)
[2021-11-07] MEDS: HEPARIN SODIUM,PORCINE/PF 5,000 UNIT/0.5 ML SYRINGE SQ SCH ×2 (19:30→19:33)
[2021-11-07] MEDS: INSULIN ASPART (NovoLOG) 100 UNIT/ML VIAL SQ SCH ×2 (19:33→23:09)
[2021-11-07] MEDS ORDERED: NON FORMULARY DRUG (Insulin Glargine 100 UNIT/ML Ml) SQ SCH (21:00)
[2021-11-07] MEDS: PANTOPRAZOLE 40 MG/10 ML VIAL IVP SCH (21:08)
[2021-11-07] MEDS: GABAPENTIN 400 MG CAP PO SCH (21:09)
[2021-11-07 22:28] LABS: Glucose,Whole Blood 116 mg/dL (75-99)
[2021-11-07 22:50] LABS: Estimated Average Glucose UNC
--- NOTE | 2021-11-07 23:26 | P.CONS ---
History of Present Illness - Reason for Consult Consult date: 11/07/21 - History of Present Illness Patient is a 50-year-old male with a past medical history significant for insulin-dependent Beatties mellitus in this patient presented to the hospital this afternoon for evaluation of left leg pain and swelling in this patient symptom has been going on for about a day or 2 before presentation to the hospital patient mention that he was taking a shower about 3 days ago when the state portion of the shower drain seem to have gotten uplifted and the patient left big toe get caught into it due to some maceration subsequently patient noticed to having increasing swelling redness and maceration of the left big toe with some extension of the redness on the dorsal aspect of the left foot patient be complaining of pain which is throbbing about 8-9 out of 10 head no radiation patient denies having any purulent drainage and denies high-grade fever with the symptoms the patient was evaluated by GI physician on arrival to the ER the patient was afebrile patient did have normal white count did have elevated lactic acid 2.1 creatinine has been normal patient did have a lower extremity CT diffusive with this edema correlate for cellulitis no other abnormality patient was given Zosyn and vancomycin subsequently vancomycin has been continued infectious he was consulted for further management of left lower extremity cellulitis Past Medical History Past Medical History: Asthma, COPD, CVA/TIA, Diabetes Mellitus Additional Past Medical History / Comment(s): neuropathy. TIA 01-23-18 History of Any Multi-Drug Resistant Organisms: MRSA Year Discovered:: 01/07/18 MDRO Source:: FOOT Past Surgical History: Orthopedic Surgery Past Psychological History: ADD/ADHD Smoking Status: Former smoker Past Alcohol Use History: None Reported Past Drug Use History: Marijuana - Past Family History Mother Family Medical History: Diabetes Mellitus Father Family Medical History: Diabetes Mellitus Medications and Allergies Home Medications Medication Instructions Recorded Confirmed Type Gabapentin [Neurontin] 400 mg PO BID 11/07/21 11/07/21 History Insulin Glargine [Lantus Vial] 70 unit SQ BID 11/07/21 11/07/21 History lisinopriL 40 mg PO DAILY 11/07/21 11/07/21 History Allergies Allergy/AdvReac Type Severity Reaction Status Date / Time No Known Allergies Allergy Verified 11/07/21 14:00 Physical Exam Vitals: Vital Signs Temp Pulse Pulse Resp BP BP Pulse Ox 11/07/21 22:39 98.1 F 80 16 159/87 98 11/07/21 22:05 97.7 F 77 16 129/93 99 11/07/21 19:55 97.8 F 18 11/07/21 12:43 97.7 F 97 20 138/84 96 Intake and Output 11/07/21 11/07/21 11/08/21 14:59 22:59 06:59 Other: Weight 87.997 kg Results CBC & Chem 7: 11/07/21 13:48 11/07/21 13:48 Labs: Abnormal Lab Results - Last 24 Hours (Table) 11/07/21 11/07/21 11/07/21 Range/Units 13:48 13:48 13:48 RBC 3.94 L (4.30-5.90) m/uL Hgb 11.6 L (13.0-17.5) gm/dL Hct 37.3 L (39.0-53.0) % Lymphocytes # 0.9 L (1.0-4.8) k/uL Sodium 124 L (137-145) mmol/L Chloride 94 L (98-107) mmol/L Glucose 637 H* (74-99) mg/dL POC Glucose (mg/dL) (75-99) mg/dL Plasma Lactic Acid Cezar 2.1 H* (0.7-2.0) mmol/L Calcium 8.0 L (8.4-10.2) mg/dL Total Protein 5.7 L (6.3-8.2) g/dL Albumin 2.8 L (3.5-5.0) g/dL 11/07/21 11/07/21 Range/Units 19:08 22:26 RBC (4.30-5.90) m/uL Hgb (13.0-17.5) gm/dL Hct (39.0-53.0) % Lymphocytes # (1.0-4.8) k/uL Sodium (137-145) mmol/L Chloride (98-107) mmol/L Glucose (74-99) mg/dL POC Glucose (mg/dL) 155 H 116 H (75-99) mg/dL Plasma Lactic Acid Cezar (0.7-2.0) mmol/L Calcium (8.4-10.2) mg/dL Total Protein (6.3-8.2) g/dL Albumin (3.5-5.0) g/dL Assessment and Plan Plan: 1patient presented hospital with a left foot cellulitis in this patient did have a traumatic wound to the left big toe medial aspect with evidence of maceration and some drainage and cellulitis likely from gram-positive skin sulaiman, underlying gram-negative infection less likely bilateral excluded. 2local wound culture has been obtained to guide further antibiotic therapy swab was personally collected and given to the RN to send it down. 3vancomycin pharmacy to dose target trough of 15 while watching kidney function and vancomycin trough closely. 4Marked area of the redness. We will follow on clinical condition and cultures to further adjust medication if needed Thank you for this consultation will follow this patient along with you
[2021-11-08] MEDS: HYDROmorphone 0.5 MG/0.5 ML SYRINGE IVP PRN ×6 (02:44→23:19)
[2021-11-08] MEDS ORDERED: VANCOMYCIN 1,500 MG in SODIUM CHLORIDE 0.9% 250 ML IVPB SCH (03:00)
[2021-11-08 07:19] LABS: Basophils # (A) 0.1 k/uL (0-0.2); Basophils % (A) 1 %; Eosinophils # (A) 0.1 k/uL (0-0.7); Eosinophils % (A) 1 %; HCT 37.5 % (39.0-53.0); Lymphocytes # (A) 1.4 k/uL (1.0-4.8); Lymphocytes % (A) 18 %; MCH 29.6 pg (25.0-35.0); MCV 92.6 fL (80.0-100.0); Mean Platelet Volume 7.1; Monocytes # (A) 0.3 k/uL (0-1.0); Monocytes % (A) 4 %; Neutrophils # (A) 5.7 k/uL (1.3-7.7); Neutrophils % (A) 72 %; Platelet Count 389 k/uL (150-450); RBC 4.04 m/uL (4.30-5.90); RDW 13.1 % (11.5-15.5); WBC 7.9 k/uL (3.8-10.6)
[2021-11-08 07:21] LABS: Glucose,Whole Blood 80 mg/dL (75-99)
[2021-11-08 07:44] LABS: African American GFR (CKD) >90 (>60 ml/min/1.73 sqM); Anion Gap 2 mmol/L; Blood Urea Nitrogen 16 mg/dL (9-20); Calcium 8.5 mg/dL (8.4-10.2); Carbon Dioxide 30 mmol/L (22-30); Chloride 104 mmol/L (98-107); Glucose 77 mg/dL (74-99); Non-African American GFR(CKD) >90 (>60 ml/min/1.73 sqM); Potassium 4.3 mmol/L (3.5-5.1); Sodium 136 mmol/L (137-145)
[2021-11-08] MEDS: HYDROcodone/APAP 10-325MG 1 EACH TAB PO PRN ×2 (08:24→18:00)
[2021-11-08] MEDS: GABAPENTIN 400 MG CAP PO SCH ×2 (08:24→19:59)
[2021-11-08] MEDS: PANTOPRAZOLE 40 MG/10 ML VIAL IVP SCH (08:24)
[2021-11-08] MEDS: HEPARIN SODIUM,PORCINE/PF 5,000 UNIT/0.5 ML SYRINGE SQ SCH ×3 (08:25→23:19)
[2021-11-08] MEDS: INSULIN DETEMIR (LEVEMIR) 100 UNIT/ML SYR SQ SCH ×2 (08:25→21:50)
[2021-11-08] MEDS: INSULIN ASPART (NovoLOG) 100 UNIT/ML VIAL SQ SCH ×4 (08:25→21:59)
[2021-11-08] MEDS: VANCOMYCIN 1,500 MG in SODIUM CHLORIDE 0.9% 250 ML IVPB SCH ×2 (11:35→21:49)
[2021-11-08 12:01] LABS: Glucose,Whole Blood 200 mg/dL (75-99)
--- NOTE | 2021-11-08 13:49 | P.PN ---
Subjective Progress Note Date: 11/08/21 This is a pleasant 50-year-old male who presented to the emergency department with left lower extremity redness and swelling and also left toe possible infection with worsening. Patient reports that he had some Bactrim at home and started himself and noticed a streak up the left calf extending to the thigh with increased redness and swelling and severe pain 10/10 and presented to the emergency department for further evaluation. 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 Patient denies any further illicit drug use and reports to quitting smoking approximately 8-1/2 years ago and has not had a drink in the last 12 years. Patient diagnosed with diabetes and initially started on oral diabetic agents although unable to tolerate due to excessive diarrhea and is maintained on insulin. Patient appears noncompliant with medications and will obtain hemoglobin A1c is blood sugars are extremely high and found to be over 600 in the ER. Will resume home medications and initiate sliding scale along with Accu-Cheks before meals and at bedtime. Patient started on broad-spectrum antibiotics and was given a dose of Zosyn and will continue with IV vancomycin and infectious disease is being consulted. CT of the lower extremity ordered as patient is in extreme pain and unable to touch the left lower extremity. Patient is being admitted for left lower extremity cellulitis and awaiting ID consult. 11/08/2021 Patient is seen in follow-up today and is currently maintained on IV antibiotics in the form of vancomycin along with IV cefepime being added. Infectious disease is following closely and patient continues to be extremely sensitive and tender to the touch with severe pain of 10/10 on the pain scale. Patient is on IV pain medications along with oral pain medications and encourage the patient to increase activity as tolerated. Blood sugars better improved on current regimen and will continue. Recommend continue with Accu-Cheks before meals and at bedtime and as needed. Sodium also improved at 136. Patient is afebrile and denies any chest pain or shortness of breath. Patient denies nausea or vomiting and is tolerating diet. Venous Doppler of the left lower extremity was negative for DVT. Review of systems: Constitutional: No reports of fatigue, fever, or chills Cardiovascular: No reports of chest pain or palpitations Respiratory: No reports of shortness of breath or cough GI: No reports of nausea, vomiting, or diarrhea : No reports of dysuria or retention Neurovascular: No reports of weakness or numbness, reports extreme sensitivity and pain of the left lower extremity All medications have been reviewed Active Medications Acetaminophen (Acetaminophen Tab 325 Mg Tab) 650 mg PO Q6HR PRN PRN Reason: Mild Pain or Fever > 100.5 Hydrocodone Bitart/Acetaminophen (Hydrocodone/Apap 10-325mg 1 Each Tab) 1 each PO Q6HR PRN PRN Reason: Pain Last Admin: 11/08/21 08:24 Dose: 1 each Documented by: Gabapentin (Gabapentin 400 Mg Cap) 400 mg PO BID [facility] Last Admin: 11/08/21 08:24 Dose: 400 mg Documented by: Heparin Sodium (Porcine) (Heparin Sodium,Porcine/Pf 5,000 Unit/0.5 Ml Syringe) 5,000 unit SQ Q8HR [facility] Last Admin: 11/08/21 08:25 Dose: 5,000 unit Documented by: Hydromorphone HCl (Hydromorphone 0.5 Mg/0.5 Ml Syringe) 0.5 mg IVP Q3HR PRN PRN Reason: Moderate Pain Last Admin: 11/08/21 11:36 Dose: 0.5 mg Documented by: Vancomycin HCl 1,500 mg/ (Sodium Chloride) 250 mls @ 125 mls/hr IVPB Q8H [facility] Last Admin: 11/08/21 11:35 Dose: 125 mls/hr Documented by: Cefepime HCl 2 gm/ Sodium (Chloride) 100 mls @ 25 mls/hr IVPB Q8HR [facility]; Protocol Insulin Aspart (Insulin Aspart (Novolog) 100 Unit/Ml Vial) 0 unit SQ ACHS [facility]; Protocol Last Admin: 11/08/21 13:26 Dose: 2 unit Documented by: Insulin Detemir (Insulin Detemir (Levemir) 100 Unit/Ml Syr) 70 unit SQ BID [facility] Last Admin: 11/08/21 08:25 Dose: 70 unit Documented by: Miscellaneous Information (Vancomycin Trough Due 1 Each Misc) 0 each MISCELLANE DIRECTED ONE Stop: 11/09/21 11:01 Naloxone HCl (Naloxone 0.4 Mg/Ml 1 Ml Vial) 0.2 mg IV Q2M PRN PRN Reason: Opioid Reversal Pantoprazole Sodium (Pantoprazole 40 Mg Tablet) 40 mg PO AC-BID [facility] Physical exam: Gen: This is a 50-year-old male awake, alert and oriented 3, well-developed, well-nourished. HEENT: Head is atraumatic, normocephalic. Pupils equal, round. Sclerae is anicteric. NECK: Supple. No JVD. No lymphadenopathy. No thyromegaly. LUNGS: Clear to auscultation. No wheezes or rhonchi. No intercostal retracti ons. HEART: Regular rate and rhythm. No murmur. ABDOMEN: Soft. Bowel sounds are present. No masses. No tenderness. EXTREMITIES: No pedal edema. No calf tenderness. Left lower extremity redness and swelling and a diabetic wound or ulcer noted in between the great toe and first digit with maceration noted, swelling improved mildly and continues with some redness although improved as well NEUROLOGICAL: Patient is awake, alert and oriented x3. Cranial nerves 2 through 12 are grossly intact. Assessment: Left foot pain possible cellulitis of the left lower extremity Diabetic ulcer in between great toe and first digit Diabetes mellitus uncontrolled with hyperglycemia Lactic acidosis, present on admission, improved Hyponatremia, improved History of asthma/COPD, not in acute exacerbation CVA/TIA history Past medical history of nicotine abuse Occasional THC use GI prophylaxis DVT prophylaxis Full code Plan: Recommend patient to continue on IV antibiotics in the form of vancomycin and cefepime is being added by infectious disease was following closely. A wound culture was obtained and currently pending. CT of the left lower extremity shows diffuse subcutaneous edema and to correlate for cellulitis and there is also a left inguinal lymphadenopathy noted. Suggested possible DVT and venous Doppler was done which was negative for DVT of the left lower extremity. Patient continues his extreme sensitivity and 10/10 pain and will continue with IV pain medications along with oral pain meds to control the pain. Encouraged increased activity as tolerated and continue with consistent carb diet and Accu- Cheks before meals and at bedtime. Blood sugars are much improved today and wi ll continue with current regimen. Areas were marked of the redness to monitor closely. Due to multiple complex medical issues, prognosis is guarded. The impression and plan of care has been dictated by Juanita Walsh, Nurse Practitioner as directed. Dr. Osmin MD I have performed a history and examination and MDM of this patient, discussed the same with the dictator, and agree with the dictator's assessment and plan as written ,documented as a scribe. Based on total visit time, I have performed more than 50% of the visit. Objective - Vital Signs Vital signs: Vital Signs Temp 98.1 F 11/08/21 04:49 Pulse 80 11/08/21 04:49 Resp 16 11/08/21 04:49 BP 114/64 11/08/21 04:49 Pulse Ox 97 11/08/21 04:49 Intake & Output 11/07/21 11/08/21 11/08/21 18:59 06:59 18:59 Intake Total 840 Balance 840 Weight 87.997 kg 87.997 kg Intake: Intake, IV Titration 250 Amount Vancomycin 1,500 mg In 250 Sodium Chloride 0.9% 250 ml @ 125 mls/hr IVPB Q12H [facility] Rx#:[id number] Oral 590 Other: Voiding Method Toilet Urinal # Voids 2 - Labs CBC & Chem 7: 11/08/21 06:58 11/08/21 06:58 Labs: Abnormal Lab Results - Last 24 Hours (Table) 11/07/21 11/07/21 11/07/21 Range/Units 13:48 13:48 13:48 RBC 3.94 L (4.30-5.90) m/uL Hgb 11.6 L (13.0-17.5) gm/dL Hct 37.3 L (39.0-53.0) % Lymphocytes # 0.9 L (1.0-4.8) k/uL Sodium 124 L (137-145) mmol/L Chloride 94 L (98-107) mmol/L Glucose 637 H* (74-99) mg/dL POC Glucose (mg/dL) (75-99) mg/dL Hemoglobin A1c (0.0-6.0) % Plasma Lactic Acid Cezar 2.1 H* (0.7-2.0) mmol/L Calcium 8.0 L (8.4-10.2) mg/dL Total Protein 5.7 L (6.3-8.2) g/dL Albumin 2.8 L (3.5-5.0) g/dL 11/07/21 11/07/21 11/07/21 Range/Units 13:48 19:08 22:26 RBC (4.30-5.90) m/uL Hgb (13.0-17.5) gm/dL Hct (39.0-53.0) % Lymphocytes # (1.0-4.8) k/uL Sodium (137-145) mmol/L Chloride (98-107) mmol/L Glucose (74-99) mg/dL POC Glucose (mg/dL) 155 H 116 H (75-99) mg/dL Hemoglobin A1c >20.1 H (0.0-6.0) % Plasma Lactic Acid Cezar (0.7-2.0) mmol/L Calcium (8.4-10.2) mg/dL Total Protein (6.3-8.2) g/dL Albumin (3.5-5.0) g/dL 11/08/21 11/08/21 Range/Units 06:58 06:58 RBC 4.04 L (4.30-5.90) m/uL Hgb 12.0 L (13.0-17.5) gm/dL Hct 37.5 L (39.0-53.0) % Lymphocytes # (1.0-4.8) k/uL Sodium 136 L (137-145) mmol/L Chloride (98-107) mmol/L Glucose (74-99) mg/dL POC Glucose (mg/dL) (75-99) mg/dL Hemoglobin A1c (0.0-6.0) % Plasma Lactic Acid Cezar (0.7-2.0) mmol/L Calcium (8.4-10.2) mg/dL Total Protein (6.3-8.2) g/dL Albumin (3.5-5.0) g/dL
[2021-11-08 16:36] VITALS: BMI 27.0
[2021-11-08] MEDS: CEFEPIME 2 GM in SODIUM CHLORIDE 0.9% 100 ML IVPB SCH (16:37)
[2021-11-08] MEDS: PANTOPRAZOLE 40 MG TABLET PO SCH (16:44)
[2021-11-08 17:25] LABS: Glucose,Whole Blood 157 mg/dL (75-99)
[2021-11-08 20:02] LABS: Glucose,Whole Blood 371 mg/dL (75-99)
--- NOTE | 2021-11-08 21:03 | P.PN ---
Subjective Progress Note Date: 11/08/21 Principal diagnosis: Left diabetic foot infection Patient is a 50 year old male with past medical history significant for diabetes mellitus presented to hospital with left foot and leg pain in this patient did have a laceration to the lateral aspect of the left big toe with secondary cellulitis. On today's evaluation that is 11/08/2021, the patient denies having any fever or chills, he still complaining of pain to the left foot however no worsening patient denies having any chest pain or shortness of breath or cough no abdominal pain no diarrhea Objective - Vital Signs Vital signs: Vital Signs Temp 97.9 F 11/08/21 12:02 Pulse 67 11/08/21 12:02 Resp 15 11/08/21 12:02 BP 148/80 11/08/21 12:02 Pulse Ox 98 11/08/21 12:02 Intake & Output 11/07/21 11/08/21 11/08/21 18:59 06:59 18:59 Intake Total 840 Balance 840 Weight 87.997 kg 87.997 kg Intake: Intake, IV Titration 250 Amount Vancomycin 1,500 mg In 250 Sodium Chloride 0.9% 250 ml @ 125 mls/hr IVPB Q12H [facility] Rx#:[id number] Oral 590 Other: Voiding Method Toilet Toilet Urinal Urinal # Voids 2 - Exam GENERAL DESCRIPTION: A middle-age male lying in bed in no distress RESPIRATORY SYSTEM: Unlabored breathing , decreased breath sounds at bases HEART: S1 S2 regular rate and rhythm , ABDOMEN: Soft , no tenderness EXTREMITIES: Left big toe remains to be swollen with the blistering on the lateral aspect redness to the foot slightly decreased - Labs CBC & Chem 7: 11/08/21 06:58 11/08/21 06:58 Labs: Abnormal Lab Results - Last 24 Hours (Table) 11/07/21 11/07/21 11/07/21 Range/Units 13:48 13:48 13:48 RBC 3.94 L (4.30-5.90) m/uL Hgb 11.6 L (13.0-17.5) gm/dL Hct 37.3 L (39.0-53.0) % Lymphocytes # 0.9 L (1.0-4.8) k/uL Sodium 124 L (137-145) mmol/L Chloride 94 L (98-107) mmol/L Glucose 637 H* (74-99) mg/dL POC Glucose (mg/dL) (75-99) mg/dL Hemoglobin A1c (0.0-6.0) % Plasma Lactic Acid Cezar 2.1 H* (0.7-2.0) mmol/L Calcium 8.0 L (8.4-10.2) mg/dL Total Protein 5.7 L (6.3-8.2) g/dL Albumin 2.8 L (3.5-5.0) g/dL 11/07/21 11/07/21 11/07/21 Range/Units 13:48 19:08 22:26 RBC (4.30-5.90) m/uL Hgb (13.0-17.5) gm/dL Hct (39.0-53.0) % Lymphocytes # (1.0-4.8) k/uL Sodium (137-145) mmol/L Chloride (98-107) mmol/L Glucose (74-99) mg/dL POC Glucose (mg/dL) 155 H 116 H (75-99) mg/dL Hemoglobin A1c >20.1 H (0.0-6.0) % Plasma Lactic Acid Cezar (0.7-2.0) mmol/L Calcium (8.4-10.2) mg/dL Total Protein (6.3-8.2) g/dL Albumin (3.5-5.0) g/dL 11/08/21 11/08/21 11/08/21 Range/Units 06:58 06:58 12:00 RBC 4.04 L (4.30-5.90) m/uL Hgb 12.0 L (13.0-17.5) gm/dL Hct 37.5 L (39.0-53.0) % Lymphocytes # (1.0-4.8) k/uL Sodium 136 L (137-145) mmol/L Chloride (98-107) mmol/L Glucose (74-99) mg/dL POC Glucose (mg/dL) 200 H (75-99) mg/dL Hemoglobin A1c (0.0-6.0) % Plasma Lactic Acid Cezar (0.7-2.0) mmol/L Calcium (8.4-10.2) mg/dL Total Protein (6.3-8.2) g/dL Albumin (3.5-5.0) g/dL Assessment and Plan (1) Cellulitis of left lower extremity Current Visit: Yes Status: Acute Code(s): L03.116 - CELLULITIS OF LEFT LOWER LIMB SNOMED Code(s): 922084521 Plan: 1patient presented hospital with a left foot cellulitis in this patient did have a traumatic wound to the left big toe medial aspect with evidence of maceration and some drainage and cellulitis likely from gram-positive skin sulaiman, underlying gram-negative infection less likely bilateral excluded. 2local wound culture has been obtained to guide further antibiotic therapy swab was personally collected and given to the RN to send it down. 3patient to continue with vancomycin pharmacy to dose target trough of 15 while watching kidney function and vancomycin trough closely. 4will add cefepime to cover for gram-negative while waiting for the cultures to finalize Time with Patient: Less than 30
[2021-11-09] MEDS: CEFEPIME 2 GM in SODIUM CHLORIDE 0.9% 100 ML IVPB SCH ×3 (00:02→16:28)
[2021-11-09] MEDS: VANCOMYCIN 1,500 MG in SODIUM CHLORIDE 0.9% 250 ML IVPB SCH ×2 (04:12→12:13)
[2021-11-09 07:11] LABS: Glucose,Whole Blood 203 mg/dL (75-99)
[2021-11-09] MEDS: PANTOPRAZOLE 40 MG TABLET PO SCH ×2 (09:48→18:01)
[2021-11-09] MEDS: GABAPENTIN 400 MG CAP PO SCH ×2 (09:48→20:33)
[2021-11-09] MEDS: HEPARIN SODIUM,PORCINE/PF 5,000 UNIT/0.5 ML SYRINGE SQ SCH ×2 (09:49→15:26)
[2021-11-09] MEDS: INSULIN ASPART (NovoLOG) 100 UNIT/ML VIAL SQ SCH ×4 (09:50→20:44)
[2021-11-09] MEDS: HYDROmorphone 0.5 MG/0.5 ML SYRINGE IVP PRN ×3 (09:50→19:36)
[2021-11-09] MEDS: INSULIN DETEMIR (LEVEMIR) 100 UNIT/ML SYR SQ SCH ×2 (09:53→20:45)
[2021-11-09] MEDS ORDERED: VANCOMYCIN TROUGH DUE 1 EACH MISC MISCELLANE ONE (11:00)
[2021-11-09 11:38] LABS: African American GFR (CKD) >90 (>60 ml/min/1.73 sqM); Anion Gap 2 mmol/L; Blood Urea Nitrogen 11 mg/dL (9-20); Calcium 8.5 mg/dL (8.4-10.2); Carbon Dioxide 29 mmol/L (22-30); Chloride 107 mmol/L (98-107); Glucose 96 mg/dL (74-99); Non-African American GFR(CKD) >90 (>60 ml/min/1.73 sqM); Potassium 4.6 mmol/L (3.5-5.1); Sodium 138 mmol/L (137-145)
[2021-11-09 12:50] LABS: Glucose,Whole Blood 88 mg/dL (75-99)
[2021-11-09] MEDS: VANCOMYCIN 1,250 MG in SODIUM CHLORIDE 0.9% 250 ML IVPB SCH ×2 (13:23→20:45)
[2021-11-09] MEDS: HYDROcodone/APAP 10-325MG 1 EACH TAB PO PRN (13:27)
[2021-11-09 17:25] LABS: Glucose,Whole Blood 208 mg/dL (75-99)
[2021-11-09 20:31] LABS: Glucose,Whole Blood 266 mg/dL (75-99)
--- NOTE | 2021-11-09 22:18 | P.PN ---
Subjective Progress Note Date: 11/09/21 Principal diagnosis: Left diabetic foot infection Patient is a 50 year old male with past medical history significant for diabetes mellitus presented to hospital with left foot and leg pain in this patient did have a laceration to the lateral aspect of the left big toe with secondary cellulitis. On today's evaluation that is 11/09/2021, the patient remains to be afebrile, the patient pain to the left foot has slightly decreased in intensity, patient denies having any chest pain or shortness of breath or cough no abdominal pain no diarrhea Objective - Vital Signs Vital signs: Vital Signs Temp 98.6 F 11/09/21 05:00 Pulse 80 11/09/21 05:00 Resp 18 11/09/21 05:00 BP 150/84 11/09/21 05:00 Pulse Ox 98 11/09/21 05:00 Intake & Output 11/08/21 11/09/21 11/09/21 18:59 06:59 18:59 Intake Total 700 Balance 700 Weight 87.997 kg Intake: Oral 700 Other: Voiding Method Toilet Toilet Urinal Urinal # Voids 2 - Exam GENERAL DESCRIPTION: A middle-age male lying in bed in no distress RESPIRATORY SYSTEM: Unlabored breathing , decreased breath sounds at bases HEART: S1 S2 regular rate and rhythm , ABDOMEN: Soft , no tenderness EXTREMITIES: Left big toe remains to be swollen with the blistering on the lateral aspect however the redness has slightly decreased no drainage - Labs CBC & Chem 7: 11/08/21 06:58 11/09/21 10:52 Labs: Abnormal Lab Results - Last 24 Hours (Table) 11/08/21 11/08/21 11/08/21 Range/Units 12:00 17:23 19:57 POC Glucose (mg/dL) 200 H 157 H 371 H (75-99) mg/dL 11/09/21 Range/Units 07:10 POC Glucose (mg/dL) 203 H (75-99) mg/dL Microbiology - Last 24 Hours (Table) 11/08/21 02:55 Gram Stain - Preliminary Toe - Left First Wound Culture - Preliminary 11/07/21 13:48 Blood Culture - Preliminary Blood No Growth after 24 hours 11/07/21 13:48 Blood Culture - Preliminary Blood No Growth after 24 hours Assessment and Plan (1) Cellulitis of left lower extremity Current Visit: Yes Status: Acute Code(s): L03.116 - CELLULITIS OF LEFT LOWER LIMB SNOMED Code(s): 708355826 Plan: 1patient presented hospital with a left foot cellulitis in this patient did have a traumatic wound to the left big toe medial aspect with evidence of maceration and some drainage and cellulitis likely from gram-positive skin sulaiman, underlying gram-negative infection less likely bilateral excluded. 2local wound culture has been obtained to guide further antibiotic therapy , blood culture negative local wound cultures pending 3patient has shown some clinical improvement and will continue with cefepime and vancomycin pharmacy to dose target trough of 15 while watching kidney f unction and vancomycin trough closely, while waiting for the cultures to finalize Time with Patient: Less than 30
[2021-11-10] MEDS: CEFEPIME 2 GM in SODIUM CHLORIDE 0.9% 100 ML IVPB SCH ×2 (00:38→07:21)
[2021-11-10] MEDS: HYDROmorphone 0.5 MG/0.5 ML SYRINGE IVP PRN ×7 (01:12→20:15)
[2021-11-10] MEDS: HYDROcodone/APAP 10-325MG 1 EACH TAB PO PRN ×5 (01:17→21:38)
[2021-11-10] MEDS: HEPARIN SODIUM,PORCINE/PF 5,000 UNIT/0.5 ML SYRINGE SQ SCH ×3 (01:19→15:40)
--- NOTE | 2021-11-10 04:38 | P.PN ---
Subjective Progress Note Date: 11/09/21 This is a pleasant 50-year-old male who presented to the emergency department with left lower extremity redness and swelling and also left toe possible infection with worsening. Patient reports that he had some Bactrim at home and started himself and noticed a streak up the left calf extending to the thigh with increased redness and swelling and severe pain 10/10 and presented to the emergency department for further evaluation. 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 Patient denies any further illicit drug use and reports to quitting smoking approximately 8-1/2 years ago and has not had a drink in the last 12 years. Patient diagnosed with diabetes and initially started on oral diabetic agents although unable to tolerate due to excessive diarrhea and is maintained on insulin. Patient appears noncompliant with medications and will obtain hemoglobin A1c is blood sugars are extremely high and found to be over 600 in the ER. Will resume home medications and initiate sliding scale along with Accu-Cheks before meals and at bedtime. Patient started on broad-spectrum antibiotics and was given a dose of Zosyn and will continue with IV vancomycin and infectious disease is being consulted. CT of the lower extremity ordered as patient is in extreme pain and unable to touch the left lower extremity. Patient is being admitted for left lower extremity cellulitis and awaiting ID consult. 11/08/2021 Patient is seen in follow-up today and is currently maintained on IV antibiotics in the form of vancomycin along with IV cefepime being added. Infectious disease is following closely and patient continues to be extremely sensitive and tender to the touch with severe pain of 10/10 on the pain scale. Patient is on IV pain medications along with oral pain medications and encourage the patient to increase activity as tolerated. Blood sugars better improved on current regimen and will continue. Recommend continue with Accu-Cheks before meals and at bedtime and as needed. Sodium also improved at 136. Patient is afebrile and denies any chest pain or shortness of breath. Patient denies nausea or vomiting and is tolerating diet. Venous Doppler of the left lower extremity was negative for DVT. 11/09/2021 Patient evaluated today and is maintained on IV cefepime and vancomycin. ID is following and awaiting cultures to determine if IV antibiotics is needed on discharge. Patient is asking when he can be discharged. Patient continues with some redness and swelling although somewhat improved. Patient less sensitive to palpation of the left lower extremity on exam. Patient remains afebrile and blood sugars have been variable. Patient denies chest pain or shortness of breath. Patient is tolerating diet with no nausea or vomiting noted. Review of systems: Constitutional: No reports of fatigue, fever, or chills Cardiovascular: No reports of chest pain or palpitations Respiratory: No reports of shortness of breath or cough GI: No reports of nausea, vomiting, or diarrhea : No reports of dysuria or retention Neurovascular: No reports of weakness or numbness, reports less sensitivity of the left lower extremity with improvement in the swelling All medications have been reviewed Active Medications Acetaminophen (Acetaminophen Tab 325 Mg Tab) 650 mg PO Q6HR PRN PRN Reason: Mild Pain or Fever > 100.5 Hydrocodone Bitart/Acetaminophen (Hydrocodone/Apap 10-325mg 1 Each Tab) 1 each PO Q6HR PRN PRN Reason: Pain Last Admin: 11/10/21 01:17 Dose: 1 each Documented by: Gabapentin (Gabapentin 400 Mg Cap) 400 mg PO BID [facility] Last Admin: 11/09/21 20:33 Dose: 400 mg Documented by: Heparin Sodium (Porcine) (Heparin Sodium,Porcine/Pf 5,000 Unit/0.5 Ml Syringe) 5,000 unit SQ Q8HR [facility] Last Admin: 11/10/21 01:19 Dose: 5,000 unit Documented by: Hydromorphone HCl (Hydromorphone 0.5 Mg/0.5 Ml Syringe) 0.5 mg IVP Q3HR PRN PRN Reason: Moderate Pain Last Admin: 11/10/21 01:12 Dose: 0.5 mg Documented by: Cefepime HCl 2 gm/ Sodium (Chloride) 100 mls @ 25 mls/hr IVPB Q8HR [facility]; Protocol Last Admin: 11/10/21 00:38 Dose: 25 mls/hr Documented by: Vancomycin HCl 1,250 mg/ (Sodium Chloride) 250 mls @ 125 mls/hr IVPB Q8H [facility] Last Admin: 11/09/21 20:45 Dose: 125 mls/hr Documented by: Insulin Aspart (Insulin Aspart (Novolog) 100 Unit/Ml Vial) 0 unit SQ ACHS [facility]; Protocol Last Admin: 11/09/21 20:44 Dose: 4 unit Documented by: Insulin Detemir (Insulin Detemir (Levemir) 100 Unit/Ml Syr) 70 unit SQ BID [facility] Last Admin: 11/09/21 20:45 Dose: 70 unit Documented by: Naloxone HCl (Naloxone 0.4 Mg/Ml 1 Ml Vial) 0.2 mg IV Q2M PRN PRN Reason: Opioid Reversal Pantoprazole Sodium (Pantoprazole 40 Mg Tablet) 40 mg PO AC-BID [facility] Last Admin: 11/09/21 18:01 Dose: 40 mg Documented by: Physical exam: Gen: This is a 50-year-old male awake, alert and oriented 3, well-developed, well-nourished. HEENT: Head is atraumatic, normocephalic. Pupils equal, round. Sclerae is anicteric. NECK: Supple. No JVD. No lymphadenopathy. No thyromegaly. LUNGS: Clear to auscultation. No wheezes or rhonchi. No intercostal retractions. HEART: Regular rate and rhythm. No murmur. ABDOMEN: Soft. Bowel sounds are present. No masses. No tenderness. EXTREMITIES: No pedal edema. No calf tenderness. Left lower extremity redness and swelling , swelling improved mildly and continues with some redness although improved as well NEUROLOGICAL: Patient is awake, alert and oriented x3. Cranial nerves 2 through 12 are grossly intact. Assessment: Left foot cellulitis, possibly secondary to a traumatic wound in between the left great toe and second digit medial aspect with some evidence of maceration and drainage noted and possibly a component of poorly controlled diabetes mellitus Diabetic ulcer in between great toe and first digit Diabetes mellitus uncontrolled with hyperglycemia Lactic acidosis, present on admission, improved Hyponatremia, improved History of asthma/COPD, not in acute exacerbation CVA/TIA history Past medical history of nicotine abuse Occasional THC use GI prophylaxis DVT prophylaxis Full code Plan: Recommend patient to continue on IV antibiotics in the form of vancomycin and cefepime with infectious disease following closely. A wound culture was obtained and currently pending. Awaiting finalized cultures. Patient requesting to go home. Encouraged increased activity as tolerated and continue with consistent carb diet and Accu-Cheks before meals and at bedtime. Blood sugars are much improved today and will continue with current regimen. Social work following and verifying if IV abx are a covered benefit in the event he requires IV abx on discharge. Awaiting cultures and will discuss with ID about treatment plan. Due to multiple complex medical issues, prognosis is guarded. The impression and plan of care has been dictated by Juanita Walsh, Nurse Practitioner as directed. Dr. Osmin MD I have performed a history and examination and MDM of this patient, discussed the same with the dictator, and agree with the dictator's assessment and plan as written ,documented as a scribe. Based on total visit time, I have performed more than 50% of the visit. Objective - Vital Signs Vital signs: Vital Signs Temp 98.6 F 11/09/21 05:00 Pulse 80 11/09/21 05:00 Resp 18 11/09/21 05:00 BP 150/84 11/09/21 05:00 Pulse Ox 98 11/09/21 05:00 Intake & Output 11/08/21 11/09/21 11/09/21 18:59 06:59 18:59 Intake Total 700 Balance 700 Weight 87.997 kg Intake: Oral 700 Other: Voiding Method Toilet Toilet Urinal Urinal # Voids 2 - Labs CBC & Chem 7: 11/08/21 06:58 11/09/21 10:52 Labs: Abnormal Lab Results - Last 24 Hours (Table) 11/08/21 11/08/21 11/08/21 Range/Units 12:00 17:23 19:57 POC Glucose (mg/dL) 200 H 157 H 371 H (75-99) mg/dL 11/09/21 Range/Units 07:10 POC Glucose (mg/dL) 203 H (75-99) mg/dL Microbiology - Last 24 Hours (Table) 11/08/21 02:55 Gram Stain - Preliminary Toe - Left First Wound Culture - Preliminary 11/07/21 13:48 Blood Culture - Preliminary Blood No Growth after 24 hours 11/07/21 13:48 Blood Culture - Preliminary Blood No Growth after 24 hours
[2021-11-10] MEDS: VANCOMYCIN 1,250 MG in SODIUM CHLORIDE 0.9% 250 ML IVPB SCH ×3 (05:57→20:17)
[2021-11-10 06:37] LABS: African American GFR (CKD) >90 (>60 ml/min/1.73 sqM); Non-African American GFR(CKD) >90 (>60 ml/min/1.73 sqM)
[2021-11-10 07:21] LABS: Glucose,Whole Blood 108 mg/dL (75-99)
[2021-11-10] MEDS: PANTOPRAZOLE 40 MG TABLET PO SCH ×2 (07:21→17:51)
[2021-11-10] MEDS: GABAPENTIN 400 MG CAP PO SCH ×3 (07:21→21:38)
[2021-11-10] MEDS: INSULIN ASPART (NovoLOG) 100 UNIT/ML VIAL SQ SCH ×4 (07:40→21:38)
[2021-11-10] MEDS: INSULIN DETEMIR (LEVEMIR) 100 UNIT/ML SYR SQ SCH ×2 (10:07→21:38)
[2021-11-10 12:30] LABS: Glucose,Whole Blood 109 mg/dL (75-99)
--- NOTE | 2021-11-10 16:25 | P.PN ---
Subjective Progress Note Date: 11/10/21 Principal diagnosis: Left diabetic foot infection Patient is a 50 year old male with past medical history significant for diabetes mellitus presented to hospital with left foot and leg pain in this patient did have a laceration to the lateral aspect of the left big toe with secondary cellulitis. On today's evaluation that is 11/10/2021, the patient IS afebrile, the patient pain to the left foot has decreased in intensity, patient denies having any chest pain or shortness of breath or cough , the patient denies abdominal pain and no diarrhea Objective - Vital Signs Vital signs: Vital Signs Temp 98.0 F 11/10/21 05:00 Pulse 80 11/10/21 08:00 Resp 16 11/10/21 08:00 BP 117/72 11/10/21 05:00 Pulse Ox 97 11/10/21 05:00 Intake & Output 11/09/21 11/10/21 11/10/21 18:59 06:59 18:59 Intake Total 350 240 Balance 350 240 Intake: Intake, IV Titration 350 Amount Cefepime 2 gm In Sodium 100 Chloride 0.9% 100 ml @ 25 mls/hr IVPB Q8HR [facility] Rx# :[id number] Vancomycin 1,250 mg In 250 Sodium Chloride 0.9% 250 ml @ 125 mls/hr IVPB Q8H [facility] Rx#:[id number] Oral 240 Other: Voiding Method Toilet Toilet Toilet Urinal Urinal Urinal # Voids 3 1 - Exam GENERAL DESCRIPTION: A middle-age male lying in bed in no distress RESPIRATORY SYSTEM: Unlabored breathing , decreased breath sounds at bases HEART: S1 S2 regular rate and rhythm , ABDOMEN: Soft , no tenderness EXTREMITIES: Left big toe remains to be swollen with the blistering on the l ateral aspect however the redness has slightly decreased no drainage - Labs CBC & Chem 7: 11/08/21 06:58 11/10/21 05:44 Labs: Abnormal Lab Results - Last 24 Hours (Table) 11/09/21 11/09/21 11/10/21 Range/Units 17:23 20:30 07:19 POC Glucose (mg/dL) 208 H 266 H 108 H (75-99) mg/dL 11/10/21 Range/Units 12:28 POC Glucose (mg/dL) 109 H (75-99) mg/dL Microbiology - Last 24 Hours (Table) 11/08/21 02:55 Gram Stain - Preliminary Toe - Left First Wound Culture - Preliminary Presumptive MRSA 11/07/21 13:48 Blood Culture - Preliminary Blood No Growth after 48 hours 11/07/21 13:48 Blood Culture - Preliminary Blood No Growth after 48 hours Assessment and Plan (1) Cellulitis of left lower extremity Current Visit: Yes Status: Acute Code(s): L03.116 - CELLULITIS OF LEFT LOWER LIMB SNOMED Code(s): 077467164 Plan: 1patient presented hospital with a left foot cellulitis in this patient did have a traumatic wound to the left big toe medial aspect with evidence of maceration and some drainage and cellulitis likely from gram-positive skin sulaiman, underlying gram-negative infection less likely bilateral excluded. 2local wound culture is currently growing presumptive MRSA, patient to continue the vancomycin and we'll discontinue the cefepime Time with Patient: Less than 30
[2021-11-10 17:09] LABS: Glucose,Whole Blood 275 mg/dL (75-99)
[2021-11-10] MEDS ORDERED: VANCOMYCIN TROUGH DUE 1 EACH MISC MISCELLANE ONE (20:00)
[2021-11-10 20:13] LABS: Glucose,Whole Blood 299 mg/dL (75-99)
[2021-11-11] MEDS: HYDROmorphone 0.5 MG/0.5 ML SYRINGE IVP PRN ×6 (00:33→21:12)
[2021-11-11] MEDS: HEPARIN SODIUM,PORCINE/PF 5,000 UNIT/0.5 ML SYRINGE SQ SCH ×3 (00:33→15:09)
[2021-11-11] MEDS: VANCOMYCIN 1,000 MG in SODIUM CHLORIDE 0.9% 250 ML IVPB SCH ×3 (03:32→21:19)
--- NOTE | 2021-11-11 04:28 | P.PN ---
Subjective Progress Note Date: 11/10/21 This is a pleasant 50-year-old male who presented to the emergency department with left lower extremity redness and swelling and also left toe possible infection with worsening. Patient reports that he had some Bactrim at home and started himself and noticed a streak up the left calf extending to the thigh with increased redness and swelling and severe pain 10/10 and presented to the emergency department for further evaluation. 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 Patient denies any further illicit drug use and reports to quitting smoking approximately 8-1/2 years ago and has not had a drink in the last 12 years. Patient diagnosed with diabetes and initially started on oral diabetic agents although unable to tolerate due to excessive diarrhea and is maintained on insulin. Patient appears noncompliant with medications and will obtain hemoglobin A1c is blood sugars are extremely high and found to be over 600 in the ER. Will resume home medications and initiate sliding scale along with Accu-Cheks before meals and at bedtime. Patient started on broad-spectrum antibiotics and was given a dose of Zosyn and will continue with IV vancomycin and infectious disease is being consulted. CT of the lower extremity ordered as patient is in extreme pain and unable to touch the left lower extremity. Patient is being admitted for left lower extremity cellulitis and awaiting ID consult. 11/08/2021 Patient is seen in follow-up today and is currently maintained on IV antibiotics in the form of vancomycin along with IV cefepime being added. Infectious disease is following closely and patient continues to be extremely sensitive and tender to the touch with severe pain of 10/10 on the pain scale. Patient is on IV pain medications along with oral pain medications and encourage the patient to increase activity as tolerated. Blood sugars better improved on current regimen and will continue. Recommend continue with Accu-Cheks before meals and at bedtime and as needed. Sodium also improved at 136. Patient is afebrile and denies any chest pain or shortness of breath. Patient denies nausea or vomiting and is tolerating diet. Venous Doppler of the left lower extremity was negative for DVT. 11/09/2021 Patient evaluated today and is maintained on IV cefepime and vancomycin. ID is following and awaiting cultures to determine if IV antibiotics is needed on discharge. Patient is asking when he can be discharged. Patient continues with some redness and swelling although somewhat improved. Patient less sensitive to palpation of the left lower extremity on exam. Patient remains afebrile and blood sugars have been variable. Patient denies chest pain or shortness of breath. Patient is tolerating diet with no nausea or vomiting noted. 11/10/2021 Patient is seen this morning and is maintained on IV antibiotics with ID following closely. Cultures revealing presumptive MRSA and will continue with IV vanco. Cefepime discontinued. Patient continues to endorse 10/10 pain and will adjust pain medications. Patient also with extreme sensitivity to the left lower extremity and will order bone scan. Encouraged increased activity as tolerated and local wound care to the left foot per ID recommendations. Recommend to continue monitoring blood sugars closely with accuchecks achs. Patient is afebrile and denies chest pain or shortness of breath. Review of systems: Constitutional: No reports of fatigue, fever, or chills Cardiovascular: No reports of chest pain or palpitations Respiratory: No reports of shortness of breath or cough GI: No reports of nausea, vomiting, or diarrhea : No reports of dysuria or retention Neurovascular: No reports of weakness or numbness, reports continued sensitivity of the left lower extremity with some improvement in the swelling All medications have been reviewed Active Medications Acetaminophen (Acetaminophen Tab 325 Mg Tab) 650 mg PO Q6HR PRN PRN Reason: Mild Pain or Fever > 100.5 Hydrocodone Bitart/Acetaminophen (Hydrocodone/Apap 10-325mg 1 Each Tab) 1 each PO Q4H PRN PRN Reason: Pain Last Admin: 11/10/21 21:38 Dose: 1 each Documented by: Gabapentin (Gabapentin 400 Mg Cap) 400 mg PO TID [facility] Last Admin: 11/10/21 21:38 Dose: 400 mg Documented by: Heparin Sodium (Porcine) (Heparin Sodium,Porcine/Pf 5,000 Unit/0.5 Ml Syringe) 5,000 unit SQ Q8HR [facility] Last Admin: 11/11/21 00:33 Dose: 5,000 unit Documented by: Hydromorphone HCl (Hydromorphone 0.5 Mg/0.5 Ml Syringe) 0.5 mg IVP Q3HR PRN PRN Reason: Moderate Pain Last Admin: 11/11/21 03:32 Dose: 0.5 mg Documented by: Vancomycin HCl 1,000 mg/ (Sodium Chloride) 250 mls @ 125 mls/hr IVPB Q8H [facility] Last Admin: 11/11/21 03:32 Dose: 125 mls/hr Documented by: Insulin Aspart (Insulin Aspart (Novolog) 100 Unit/Ml Vial) 0 unit SQ ACHS [facility]; Protocol Last Admin: 11/10/21 21:38 Dose: 5 unit Documented by: Insulin Detemir (Insulin Detemir (Levemir) 100 Unit/Ml Syr) 70 unit SQ BID [facility] Last Admin: 11/10/21 21:38 Dose: 70 unit Documented by: Miscellaneous Information (Vancomycin Trough Due 1 Each Misc) 0 each MISCELLANE DIRECTED ONE Stop: 11/12/21 03:01 Naloxone HCl (Naloxone 0.4 Mg/Ml 1 Ml Vial) 0.2 mg IV Q2M PRN PRN Reason: Opioid Reversal Pantoprazole Sodium (Pantoprazole 40 Mg Tablet) 40 mg PO AC-BID [facility] Last Admin: 11/10/21 17:51 Dose: 40 mg Documented by: Physical exam: Gen: This is a 50-year-old male awake, alert and oriented 3, well-developed, well-nourished. HEENT: Head is atraumatic, normocephalic. Pupils equal, round. Sclerae is anicteric. NECK: Supple. No JVD. No lymphadenopathy. No thyromegaly. LUNGS: Clear to auscultation. No wheezes or rhonchi. No intercostal retractions. HEART: Regular rate and rhythm. No murmur. ABDOMEN: Soft. Bowel sounds are present. No masses. No tenderness. EXTREMITIES: No pedal edema. No calf tenderness. Left lower extremity redness and swelling , swelling improved mildly and continues with some redness although improved as well, extremely tender on palpation NEUROLOGICAL: Patient is awake, alert and oriented x3. Cranial nerves 2 through 12 are grossly intact. Assessment: Left foot cellulitis, possibly secondary to a traumatic wound in between the left great toe and second digit medial aspect with some evidence of maceration and drainage noted and possibly a component of poorly controlled diabetes mellitus Presumptive MRSA on the left foot wound culture Diabetic ulcer in between great toe and first digit Diabetes mellitus uncontrolled with hyperglycemia Lactic acidosis, present on admission, improved Hyponatremia, improved History of asthma/COPD, not in acute exacerbation CVA/TIA history Past medical history of nicotine abuse Occasional THC use GI prophylaxis DVT prophylaxis Full code Plan: Recommend patient to continue on IV antibiotics in the form of vancomycin and cefepime being discontinued with infectious disease following closely. wound culture culture showing presumptive MRSA. Patient requesting more for pain as he reports 10/10 on pain scale. Bone scan ordered. Encouraged increased activity as tolerated and continue with consistent carb diet and Accu-Cheks before meals and at bedtime. Blood sugars improved and will continue with current regimen. Social work following and verifying if IV abx are a covered benefit in the event he requires IV abx on discharge. Awaiting finalized cultures and will discuss with ID about treatment plan. Due to multiple complex medical issues, prognosis is guarded. The impression and plan of care has been dictated by Juanita Walsh, Nurse Practitioner as directed. Dr. Osmin MD I have performed a history and examination and MDM of this patient, discussed the same with the dictator, and agree with the dictator's assessment and plan as written ,documented as a scribe. Based on total visit time, I have performed more than 50% of the visit. Objective - Vital Signs Vital signs: Vital Signs Temp 98.0 F 11/10/21 05:00 Pulse 80 11/10/21 05:00 Resp 16 11/10/21 05:00 BP 117/72 11/10/21 05:00 Pulse Ox 97 11/10/21 05:00 Intake & Output 11/09/21 11/10/21 11/10/21 18:59 06:59 18:59 Intake Total 350 240 Balance 350 240 Intake: Intake, IV Titration 350 Amount Cefepime 2 gm In Sodium 100 Chloride 0.9% 100 ml @ 25 mls/hr IVPB Q8HR [facility] Rx# :[id number] Vancomycin 1,250 mg In 250 Sodium Chloride 0.9% 250 ml @ 125 mls/hr IVPB Q8H [facility] Rx#:[id number] Oral 240 Other: Voiding Method Toilet Toilet Urinal Urinal # Voids 3 - Labs CBC & Chem 7: 11/08/21 06:58 11/10/21 05:44 Labs: Abnormal Lab Results - Last 24 Hours (Table) 11/09/21 11/09/21 11/10/21 Range/Units 17:23 20:30 07:19 POC Glucose (mg/dL) 208 H 266 H 108 H (75-99) mg/dL Microbiology - Last 24 Hours (Table) 11/07/21 13:48 Blood Culture - Preliminary Blood No Growth after 48 hours 11/07/21 13:48 Blood Culture - Preliminary Blood No Growth after 48 hours
[2021-11-11 07:27] LABS: Glucose,Whole Blood 106 mg/dL (75-99)
[2021-11-11 07:28] LABS: Basophils # (A) 0.1 k/uL (0-0.2); Basophils % (A) 1 %; Eosinophils # (A) 0.1 k/uL (0-0.7); Eosinophils % (A) 1 %; HCT 40.4 % (39.0-53.0); HGB 12.3 gm/dL (13.0-17.5); Lymphocytes # (A) 1.3 k/uL (1.0-4.8); Lymphocytes % (A) 16 %; MCH 28.4 pg (25.0-35.0); MCHC 30.4 g/dL (31.0-37.0); MCV 93.7 fL (80.0-100.0); Mean Platelet Volume 7.7; Monocytes # (A) 0.6 k/uL (0-1.0); Monocytes % (A) 7 %; Neutrophils # (A) 5.7 k/uL (1.3-7.7); Neutrophils % (A) 72 %; Platelet Count 412 k/uL (150-450); RBC 4.31 m/uL (4.30-5.90); RDW 12.8 % (11.5-15.5); WBC 7.9 k/uL (3.8-10.6)
[2021-11-11 07:37] LABS: African American GFR (CKD) >90 (>60 ml/min/1.73 sqM); Non-African American GFR(CKD) >90 (>60 ml/min/1.73 sqM)
[2021-11-11 07:41] LABS: African American GFR (CKD) >90 (>60 ml/min/1.73 sqM); Anion Gap 7 mmol/L; Blood Urea Nitrogen 13 mg/dL (9-20); Calcium 8.5 mg/dL (8.4-10.2); Carbon Dioxide 30 mmol/L (22-30); Chloride 102 mmol/L (98-107); Glucose 126 mg/dL (74-99); Non-African American GFR(CKD) >90 (>60 ml/min/1.73 sqM); Potassium 4.4 mmol/L (3.5-5.1); Sodium 139 mmol/L (137-145)
[2021-11-11] MEDS: INSULIN ASPART (NovoLOG) 100 UNIT/ML VIAL SQ SCH ×4 (08:15→21:11)
[2021-11-11] MEDS: INSULIN DETEMIR (LEVEMIR) 100 UNIT/ML SYR SQ SCH ×2 (08:17→21:12)
[2021-11-11] MEDS: GABAPENTIN 400 MG CAP PO SCH ×3 (08:17→19:39)
[2021-11-11] MEDS: PANTOPRAZOLE 40 MG TABLET PO SCH ×2 (08:17→16:30)
[2021-11-11] MEDS: HYDROcodone/APAP 10-325MG 1 EACH TAB PO PRN ×2 (08:22→19:39)
[2021-11-11 12:20] LABS: Glucose,Whole Blood 186 mg/dL (75-99)
[2021-11-11] MEDS: CEFEPIME 2 GM in SODIUM CHLORIDE 0.9% 100 ML IVPB SCH (16:30)
[2021-11-11 16:52] LABS: Glucose,Whole Blood 171 mg/dL (75-99)
--- NOTE | 2021-11-11 19:47 | PN ---
PROGRESS NOTE DATE OF SERVICE: 11/11/2021 This 50-year-old gentleman who was admitted with left foot cellulitis had MRSA grown from the culture. No chest pain. No palpitations. The patient also had a bone scan ordered. No fever. PHYSICAL EXAMINATION: Pulse is 100, blood pressure 156/70, respiration 19. CHEST: Clear to auscultation. ABDOMEN: Soft. NERVOUS SYSTEM: No focal deficit. EXAMINATION OF THE LEFT LEG: Significant ulcerations, cellulitis and infection present from the left toe onwards going up. ASSESSMENT: 1. Left leg cellulitis with MRSA. Rule out osteomyelitis. 2. Diabetic ulcer. 3. Diabetes mellitus, type 2. RECOMMENDATIONS AND DISCUSSION: I recommend to continue current medications, continue with the monitoring. Continue the vancomycin. Continue the rest of the medications. Otherwise, local treatment and a bone scan. Prognosis guarded. Further recommendations to follow. MMMARCELLL / FELIPEN: [id number] /
[2021-11-11 20:41] LABS: Glucose,Whole Blood 301 mg/dL (75-99)
--- NOTE | 2021-11-12 00:34 | P.PN ---
Subjective Progress Note Date: 11/11/21 Principal diagnosis: Left diabetic foot infection Patient is a 50 year old male with past medical history significant for diabetes mellitus presented to hospital with left foot and leg pain in this patient did have a laceration to the lateral aspect of the left big toe with secondary cellulitis. On today's evaluation that is 11/11/2021, the patient remains to be afebrile, the patient pain to the left foot is controlled with the current medication, patient denies having any chest pain or shortness of breath or cough , the patient denies abdominal pain and no diarrhea Objective - Vital Signs Vital signs: Vital Signs Temp 98.1 F 11/11/21 13:22 Pulse 100 11/11/21 13:22 Resp 19 11/11/21 13:22 BP 156/79 11/11/21 13:22 Pulse Ox 98 11/11/21 13:22 Intake & Output 11/10/21 11/11/21 11/11/21 18:59 06:59 18:59 Intake Total 500 180 Balance 500 180 Intake: Intake, IV Titration 500 Amount Vancomycin 1,000 mg In 500 Sodium Chloride 0.9% 250 ml @ 125 mls/hr IVPB Q8H [facility] Rx#:[id number] Oral 180 Other: Voiding Method Toilet Toilet Toilet Urinal Urinal Urinal # Voids 1 4 - Exam GENERAL DESCRIPTION: A middle-age male lying in bed in no distress RESPIRATORY SYSTEM: Unlabored breathing , decreased breath sounds at bases HEART: S1 S2 regular rate and rhythm , ABDOMEN: Soft , no tenderness EXTREMITIES: Left big toe remains to be swollen with the blistering on the lateral aspect however the redness has slightly decreased no drainage - Labs CBC & Chem 7: 11/11/21 06:24 11/11/21 06:24 Labs: Abnormal Lab Results - Last 24 Hours (Table) 11/10/21 11/10/21 11/11/21 Range/Units 17:08 20:12 06:24 Hgb 12.3 L (13.0-17.5) gm/dL MCHC 30.4 L (31.0-37.0) g/dL Glucose (74-99) mg/dL POC Glucose (mg/dL) 275 H 299 H (75-99) mg/dL 11/11/21 11/11/21 11/11/21 Range/Units 06:24 07:26 12:18 Hgb (13.0-17.5) gm/dL MCHC (31.0-37.0) g/dL Glucose 126 H (74-99) mg/dL POC Glucose (mg/dL) 106 H 186 H (75-99) mg/dL Microbiology - Last 24 Hours (Table) 11/07/21 13:48 Blood Culture - Preliminary Blood No Growth after 96 hours 11/07/21 13:48 Blood Culture - Preliminary Blood No Growth after 96 hours 11/08/21 02:55 Gram Stain - Preliminary Toe - Left First Wound Culture - Preliminary Methicillin resist S. aureus Gram Neg Bacilli Assessment and Plan (1) Cellulitis of left lower extremity Current Visit: Yes Status: Acute Code(s): L03.116 - CELLULITIS OF LEFT LOWER LIMB SNOMED Code(s): 527575504 Plan: 1patient presented hospital with a left foot cellulitis in this patient did have a traumatic wound to the left big toe medial aspect with evidence of maceration and some drainage and cellulitis likely from gram-positive skin sulaiman, underlying gram-negative infection less likely bilateral excluded. 2local wound culture is currently growing MRSA and also showing gram-negative bacilli, patient to continue the vancomycin and will restart the cefepime Time with Patient: Less than 30
[2021-11-12] MEDS: HYDROmorphone 0.5 MG/0.5 ML SYRINGE IVP PRN ×4 (01:01→20:49)
[2021-11-12] MEDS: CEFEPIME 2 GM in SODIUM CHLORIDE 0.9% 100 ML IVPB SCH ×4 (01:01→23:13)
[2021-11-12] MEDS: HEPARIN SODIUM,PORCINE/PF 5,000 UNIT/0.5 ML SYRINGE SQ SCH ×4 (01:02→23:13)
[2021-11-12] MEDS: HYDROcodone/APAP 10-325MG 1 EACH TAB PO PRN ×3 (01:57→23:18)
[2021-11-12] MEDS ORDERED: VANCOMYCIN TROUGH DUE 1 EACH MISC MISCELLANE ONE (03:00)
[2021-11-12] MEDS: VANCOMYCIN 1,000 MG in SODIUM CHLORIDE 0.9% 250 ML IVPB SCH ×3 (04:10→20:44)
[2021-11-12 04:52] LABS: African American GFR (CKD) >90 (>60 ml/min/1.73 sqM); Non-African American GFR(CKD) 89 (>60 ml/min/1.73 sqM)
[2021-11-12 07:29] LABS: Glucose,Whole Blood 179 mg/dL (75-99)
[2021-11-12] MEDS: INSULIN ASPART (NovoLOG) 100 UNIT/ML VIAL SQ SCH ×4 (09:02→20:44)
[2021-11-12] MEDS: INSULIN DETEMIR (LEVEMIR) 100 UNIT/ML SYR SQ SCH ×2 (09:03→20:44)
[2021-11-12] MEDS: GABAPENTIN 400 MG CAP PO SCH ×3 (09:03→20:45)
[2021-11-12] MEDS: PANTOPRAZOLE 40 MG TABLET PO SCH ×2 (09:03→16:30)
[2021-11-12 12:11] LABS: Glucose,Whole Blood 200 mg/dL (75-99)
[2021-11-12 17:53] LABS: Glucose,Whole Blood 213 mg/dL (75-99)
--- NOTE | 2021-11-12 18:42 | PN ---
PROGRESS NOTE DATE OF SERVICE: 11/12/2021 This 50-year-old gentleman who was admitted with left leg cellulitis and MRSA is also being evaluated for osteomyelitis. No chest pain. No palpitations. No fever. Patient is on IV vancomycin. PHYSICAL EXAMINATION: Pulse is 84, blood pressure 158/90, respirations 16. CHEST: Clear to auscultation. CARDIOVASCULAR: S1, S2 muffled. ABDOMEN: Soft. LEGS: Left leg with significant infection of the foot with some tunneling also present. LABS: Reviewed. ASSESSMENT: 1. Left leg cellulitis with MRSA. Rule out osteomyelitis of the left foot. 2. Diabetic ulcer. 3. Diabetes mellitus, type 2. RECOMMENDATIONS AND DISCUSSION: I recommend to continue current medications, continue with the monitoring, symptomatic treatment. Continue with antibiotics. Bone scan. Otherwise, continue the rest of the measures. Monitor blood sugars closely. Guarded prognosis. Further recommendations to follow. MMODL / IJN: [id number] /
[2021-11-12 20:08] LABS: Glucose,Whole Blood 351 mg/dL (75-99)
[2021-11-13] MEDS: HYDROmorphone 0.5 MG/0.5 ML SYRINGE IVP PRN ×6 (00:13→21:49)
[2021-11-13] MEDS: VANCOMYCIN 1,000 MG in SODIUM CHLORIDE 0.9% 250 ML IVPB SCH ×3 (04:54→20:26)
[2021-11-13 06:35] LABS: African American GFR (CKD) >90 (>60 ml/min/1.73 sqM); Anion Gap 3 mmol/L; Blood Urea Nitrogen 16 mg/dL (9-20); Calcium 8.1 mg/dL (8.4-10.2); Carbon Dioxide 29 mmol/L (22-30); Chloride 102 mmol/L (98-107); Glucose 270 mg/dL (74-99); Non-African American GFR(CKD) >90 (>60 ml/min/1.73 sqM); Potassium 4.1 mmol/L (3.5-5.1); Sodium 134 mmol/L (137-145)
[2021-11-13 07:03] LABS: Glucose,Whole Blood 213 mg/dL (75-99)
--- NOTE | 2021-11-13 07:28 | P.PN ---
Subjective Progress Note Date: 11/12/21 Principal diagnosis: Left diabetic foot infection Patient is a 50 year old male with past medical history significant for diabetes mellitus presented to hospital with left foot and leg pain in this patient did have a laceration to the lateral aspect of the left big toe with secondary cellulitis. On today's evaluation that is 11/12/2021, the patient denies any fever or any chills, the patient pain to the left foot is controlled, patient denies having any chest pain or shortness of breath or cough , the patient denies abdominal pain and no diarrhea with antibiotic therapy Objective - Vital Signs Vital signs: Vital Signs Temp 98.7 F 11/12/21 05:00 Pulse 84 11/12/21 08:40 Resp 16 11/12/21 08:40 BP 158/90 11/12/21 05:00 Pulse Ox 98 11/12/21 05:00 Intake & Output 11/11/21 11/12/21 11/12/21 18:59 06:59 18:59 Intake Total 600 350 Balance 600 350 Intake: Intake, IV Titration 350 Amount Cefepime 2 gm In Sodium 100 Chloride 0.9% 100 ml @ 25 mls/hr IVPB Q8HR [facility] Rx# :[id number] Vancomycin 1,000 mg In 250 Sodium Chloride 0.9% 250 ml @ 125 mls/hr IVPB Q8H [facility] Rx#:[id number] Oral 600 Other: Voiding Method Toilet Toilet Toilet Urinal Urinal Urinal # Voids 4 3 # Bowel Movements 1 - Exam GENERAL DESCRIPTION: A middle-age male lying in bed in no distress RESPIRATORY SYSTEM: Unlabored breathing , decreased breath sounds at bases HEART: S1 S2 regular rate and rhythm , ABDOMEN: Soft , no tenderness EXTREMITIES: Left big toe remains to be swollen with the blistering on the lateral aspect however the redness has slightly decreased no drainage - Labs CBC & Chem 7: 11/11/21 06:24 11/13/21 05:38 Labs: Abnormal Lab Results - Last 24 Hours (Table) 11/11/21 11/11/21 11/12/21 Range/Units 16:50 20:40 07:25 POC Glucose (mg/dL) 171 H 301 H 179 H (75-99) mg/dL 11/12/21 Range/Units 12:08 POC Glucose (mg/dL) 200 H (75-99) mg/dL Microbiology - Last 24 Hours (Table) 11/08/21 02:55 Gram Stain - Preliminary Toe - Left First Wound Culture - Preliminary Methicillin resist S. aureus Klebsiella oxytoca 11/07/21 13:48 Blood Culture - Preliminary Blood No Growth after 96 hours 11/07/21 13:48 Blood Culture - Preliminary Blood No Growth after 96 hours Assessment and Plan (1) Cellulitis of left lower extremity Current Visit: Yes Status: Acute Code(s): L03.116 - CELLULITIS OF LEFT LOWER LIMB SNOMED Code(s): 617334319 Plan: 1patient presented hospital with a left foot cellulitis in this patient did h ave a traumatic wound to the left big toe medial aspect with evidence of maceration and some drainage and cellulitis likely from gram-positive skin sulaiman, underlying gram-negative infection less likely bilateral excluded. 2patient seen for some clinical improvement, local wound culture is currently growing MRSA and Klebsiella, patient is currently being treated with vancomycin and cefepime, plan to finish therapy with oral Bactrim DS Time with Patient: Less than 30
[2021-11-13] MEDS: INSULIN DETEMIR (LEVEMIR) 100 UNIT/ML SYR SQ SCH ×2 (08:25→21:46)
[2021-11-13] MEDS: INSULIN ASPART (NovoLOG) 100 UNIT/ML VIAL SQ SCH ×4 (08:25→21:47)
[2021-11-13] MEDS: HEPARIN SODIUM,PORCINE/PF 5,000 UNIT/0.5 ML SYRINGE SQ SCH ×2 (08:27→17:29)
[2021-11-13] MEDS: GABAPENTIN 400 MG CAP PO SCH ×3 (08:27→21:55)
[2021-11-13] MEDS: PANTOPRAZOLE 40 MG TABLET PO SCH ×2 (08:27→17:28)
[2021-11-13] MEDS: CEFEPIME 2 GM in SODIUM CHLORIDE 0.9% 100 ML IVPB SCH ×2 (08:28→17:29)
[2021-11-13 12:06] LABS: Glucose,Whole Blood 231 mg/dL (75-99)
--- NOTE | 2021-11-13 14:31 | NM ---
EXAMINATION TYPE: NM bone 3 phase DATE OF EXAM: 11/13/2021 COMPARISON: CT left lower extremity 6 days ago HISTORY: Left leg redness and pain after injury 3 1/2 weeks ago. Painful open wound left first toe. Triple phase bone scintigraphy was performed following the injection of 22 mCi Tc 99m MDP. Immediate images and 5 hours post injection images acquired. Imaging of the bilateral ankles and feet is acqui red. FINDINGS: There is asymmetric increased radiotracer uptake to the left ankle and foot versus opposite right renee e greatest involving the left first toe on dynamic arterial along with blood pool images. Delayed deanna ging shows increased radiotracer uptake also at this level involving the first toe likely first dista l phalanx. IMPRESSION: Scintigraphic findings are consistent with acute osteomyelitis at area of clinical concer n left first toe.
[2021-11-13 17:21] LABS: Glucose,Whole Blood 337 mg/dL (75-99)
[2021-11-13] MEDS: HYDROcodone/APAP 10-325MG 1 EACH TAB PO PRN (19:22)
[2021-11-13 19:56] LABS: Glucose,Whole Blood 122 mg/dL (75-99)
--- NOTE | 2021-11-13 20:48 | P.PN ---
Subjective Progress Note Date: 11/13/21 Principal diagnosis: Left diabetic foot infection Patient is a 50 year old male with past medical history significant for diabetes mellitus presented to hospital with left foot and leg pain in this patient did have a laceration to the lateral aspect of the left big toe with secondary cellulitis. On today's evaluation that is 11/13/2021, the patient remains to be afebrile, the patient pain to the left foot is controlled, patient denies chest pain or shortness of breath or cough , the patient denies abdominal pain and no diarrhea with antibiotic therapy , patient is feeling better and wants to go home Objective - Vital Signs Vital signs: Vital Signs Temp 97.8 F 11/13/21 05:00 Pulse 77 11/13/21 05:00 Resp 18 11/13/21 05:00 BP 133/76 11/13/21 05:00 Pulse Ox 98 11/13/21 05:00 Intake & Output 11/12/21 11/13/21 11/13/21 18:59 06:59 18:59 Intake Total 360 910 Output Total 600 Balance -240 910 Intake: Intake, IV Titration 350 Amount Cefepime 2 gm In Sodium 100 Chloride 0.9% 100 ml @ 25 mls/hr IVPB Q8HR [facility] Rx# :[id number] Vancomycin 1,000 mg In 250 Sodium Chloride 0.9% 250 ml @ 125 mls/hr IVPB Q8H [facility] Rx#:[id number] Oral 360 560 Output: Urine 600 Other: Voiding Method Toilet Toilet Toilet Urinal # Voids 3 # Bowel Movements 1 - Exam GENERAL DESCRIPTION: A middle-age male lying in bed in no distress RESPIRATORY SYSTEM: Unlabored breathing , decreased breath sounds at bases HEART: S1 S2 regular rate and rhythm , ABDOMEN: Soft , no tenderness EXTREMITIES: Left big toe remains to be swollen with the blistering on the lateral aspect however the redness has slightly decreased no drainage - Labs CBC & Chem 7: 11/11/21 06:24 11/13/21 05:38 Labs: Abnormal Lab Results - Last 24 Hours (Table) 11/12/21 11/12/21 11/12/21 Range/Units 12:08 17:50 20:07 Sodium (137-145) mmol/L Glucose (74-99) mg/dL POC Glucose (mg/dL) 200 H 213 H 351 H (75-99) mg/dL Calcium (8.4-10.2) mg/dL 11/13/21 11/13/21 Range/Units 05:38 07:01 Sodium 134 L (137-145) mmol/L Glucose 270 H (74-99) mg/dL POC Glucose (mg/dL) 213 H (75-99) mg/dL Calcium 8.1 L (8.4-10.2) mg/dL Microbiology - Last 24 Hours (Table) 11/08/21 02:55 Gram Stain - Final Toe - Left First Wound Culture - Final Methicillin resist S. aureus Klebsiella oxytoca Acinetobacter lwoffi grp 11/07/21 13:48 Blood Culture - Preliminary Blood No Growth after 120 hours 11/07/21 13:48 Blood Culture - Preliminary Blood No Growth after 120 hours Assessment and Plan (1) Cellulitis of left lower extremity Current Visit: Yes Status: Acute Code(s): L03.116 - CELLULITIS OF LEFT LOWER LIMB SNOMED Code(s): 345993407 Plan: 1patient presented hospital with a left foot cellulitis in this patient did have a traumatic wound to the left big toe medial aspect with evidence of maceration and some drainage and cellulitis likely from gram-positive skin sulaiman, underlying gram-negative infection less likely bilateral excluded. 2patient as showing overall clinical improvement, local wound culture is currently growing MRSA and Klebsiella, patient is clinically behaving as an osteomyelitis however wound skin was ordered by admitting team and came back positive, we will obtain a CRP and sed rate and an MRI of the left big toe to rule out osteomyelitis before ordering PICC line and outpatient IV antibiotic therapy, patient to continue with vancomycin and cefepime, plan to finish therapy with oral Bactrim DS Time with Patient: Less than 30
[2021-11-14] MEDS: HEPARIN SODIUM,PORCINE/PF 5,000 UNIT/0.5 ML SYRINGE SQ SCH ×3 (00:50→17:12)
[2021-11-14] MEDS: CEFEPIME 2 GM in SODIUM CHLORIDE 0.9% 100 ML IVPB SCH ×3 (00:50→18:28)
--- NOTE | 2021-11-14 02:16 | P.PN ---
Subjective Progress Note Date: 11/13/21 This is a pleasant 50-year-old male who presented to the emergency department with left lower extremity redness and swelling and also left toe possible infection with worsening. Patient reports that he had some Bactrim at home and started himself and noticed a streak up the left calf extending to the thigh with increased redness and swelling and severe pain 10/10 and presented to the emergency department for further evaluation. 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 Patient denies any further illicit drug use and reports to quitting smoking approximately 8-1/2 years ago and has not had a drink in the last 12 years. Patient diagnosed with diabetes and initially started on oral diabetic agents although unable to tolerate due to excessive diarrhea and is maintained on insulin. Patient appears noncompliant with medications and will obtain hemoglobin A1c is blood sugars are extremely high and found to be over 600 in the ER. Will resume home medications and initiate sliding scale along with Accu-Cheks before meals and at bedtime. Patient started on broad-spectrum antibiotics and was given a dose of Zosyn and will continue with IV vancomycin and infectious disease is being consulted. CT of the lower extremity ordered as patient is in extreme pain and unable to touch the left lower extremity. Patient is being admitted for left lower extremity cellulitis and awaiting ID consult. 11/08/2021 Patient is seen in follow-up today and is currently maintained on IV antibiotics in the form of vancomycin along with IV cefepime being added. Infectious disease is following closely and patient continues to be extremely sensitive and tender to the touch with severe pain of 10/10 on the pain scale. Patient is on IV pain medications along with oral pain medications and encourage the patient to increase activity as tolerated. Blood sugars better improved on current regimen and will continue. Recommend continue with Accu-Cheks before meals and at bedtime and as needed. Sodium also improved at 136. Patient is afebrile and denies any chest pain or shortness of breath. Patient denies nausea or vomiting and is tolerating diet. Venous Doppler of the left lower extremity was negative for DVT. 11/09/2021 Patient evaluated today and is maintained on IV cefepime and vancomycin. ID is following and awaiting cultures to determine if IV antibiotics is needed on discharge. Patient is asking when he can be discharged. Patient continues with some redness and swelling although somewhat improved. Patient less sensitive to palpation of the left lower extremity on exam. Patient remains afebrile and blood sugars have been variable. Patient denies chest pain or shortness of breath. Patient is tolerating diet with no nausea or vomiting noted. 11/10/2021 Patient is seen this morning and is maintained on IV antibiotics with ID following closely. Cultures revealing presumptive MRSA and will continue with IV vanco. Cefepime discontinued. Patient continues to endorse 10/10 pain and will adjust pain medications. Patient also with extreme sensitivity to the left lower extremity and will order bone scan. Encouraged increased activity as tolerated and local wound care to the left foot per ID recommendations. Recommend to continue monitoring blood sugars closely with accuchecks achs. Patient is afebrile and denies chest pain or shortness of breath. 11/13/2021 Patient is seen today in follow up and is scheduled for bone scan. ID following and patient is maintained on IV abx in the form of cefepime and vancomycin. Patient is anxious about going home and is asking when he is being discharged. Patient continues with pain of the left lower extremity. Patient cultures with MRSA. Patient is afebrile. Patient denies chest pain or shortness of breath. Patient tolerating diet and denies nausea or vomiting. Review of systems: Constitutional: No reports of fatigue, fever, or chills Cardiovascular: No reports of chest pain or palpitations Respiratory: No reports of shortness of breath or cough GI: No reports of nausea, vomiting, or diarrhea : No reports of dysuria or retention Neurovascular: No reports of weakness or numbness, reports continued pain of the left lower extremity with improvement in the swelling All medications have been reviewed Active Medications Acetaminophen (Acetaminophen Tab 325 Mg Tab) 650 mg PO Q6HR PRN PRN Reason: Mild Pain or Fever > 100.5 Hydrocodone Bitart/Acetaminophen (Hydrocodone/Apap 10-325mg 1 Each Tab) 1 each PO Q4H PRN PRN Reason: Moderate Pain Last Admin: 11/13/21 19:22 Dose: 1 each Documented by: Gabapentin (Gabapentin 400 Mg Cap) 400 mg PO TID [facility] Last Admin: 11/13/21 21:55 Dose: 400 mg Documented by: Heparin Sodium (Porcine) (Heparin Sodium,Porcine/Pf 5,000 Unit/0.5 Ml Syringe) 5,000 unit SQ Q8HR [facility] Last Admin: 11/14/21 00:50 Dose: Not Given Documented by: Hydromorphone HCl (Hydromorphone 0.5 Mg/0.5 Ml Syringe) 0.5 mg IVP Q3HR PRN PRN Reason: Moderate Pain Last Admin: 11/13/21 21:49 Dose: 0.5 mg Documented by: Vancomycin HCl 1,000 mg/ (Sodium Chloride) 250 mls @ 125 mls/hr IVPB Q8H [facility] Last Admin: 11/13/21 20:26 Dose: 125 mls/hr Documented by: Cefepime HCl 2 gm/ Sodium (Chloride) 100 mls @ 25 mls/hr IVPB Q8HR [facility]; Protocol Last Admin: 11/14/21 00:50 Dose: 25 mls/hr Documented by: Insulin Aspart (Insulin Aspart (Novolog) 100 Unit/Ml Vial) 0 unit SQ ACHS [facility]; Protocol Last Admin: 11/13/21 21:47 Dose: Not Given Documented by: Insulin Detemir (Insulin Detemir (Levemir) 100 Unit/Ml Syr) 70 unit SQ BID [facility] Last Admin: 11/13/21 21:46 Dose: 70 unit Documented by: Miscellaneous Information (Vancomycin Trough Due 1 Each Misc) 0 each MISCELLANE DIRECTED ONE Stop: 11/14/21 11:01 Naloxone HCl (Naloxone 0.4 Mg/Ml 1 Ml Vial) 0.2 mg IV Q2M PRN PRN Reason: Opioid Reversal Pantoprazole Sodium (Pantoprazole 40 Mg Tablet) 40 mg PO AC-BID [facility] Last Admin: 11/13/21 17:28 Dose: 40 mg Documented by: Physical exam: Gen: This is a 50-year-old male awake, alert and oriented 3, well-developed, well-nourished. HEENT: Head is atraumatic, normocephalic. Pupils equal, round. Sclerae is anicteric. NECK: Supple. No JVD. No lymphadenopathy. No thyromegaly. LUNGS: Clear to auscultation. No wheezes or rhonchi. No intercostal retractions. HEART: Regular rate and rhythm. No murmur. ABDOMEN: Soft. Bowel sounds are present. No masses. No tenderness. EXTREMITIES: No pedal edema. No calf tenderness. Left lower extremity redness and swelling has improved, tender on palpation NEUROLOGICAL: Patient is awake, alert and oriented x3. Cranial nerves 2 through 12 are grossly intact. Assessment: Left foot cellulitis, possibly secondary to a traumatic wound in between the left great toe and second digit medial aspect with some evidence of maceration and drainage noted and possibly a component of poorly controlled diabetes mellitus Bone scan suggestive of osteomyelitis of the left foot first toe MRSA on the left foot wound culture Diabetic ulcer in between great toe and first digit Diabetes mellitus uncontrolled with hyperglycemia Lactic acidosis, present on admission, improved Hyponatremia, improved History of asthma/COPD, not in acute exacerbation CVA/TIA history Past medical history of nicotine abuse Occasional THC use GI prophylaxis DVT prophylaxis Full code Plan: Recommend patient to continue on IV antibiotics in the form of vancomycin and cefepime with infectious disease following closely. wound culture showing MRSA. Bone scan done today is suggestive of osteomyelitis of the left foot first toe. Will order foot MRI. This was discussed with infectious disease as well as the patient. Encouraged increased activity as tolerated and continue with consistent carb diet and Accu-Cheks before meals and at bedtime. Blood sugars improved and will continue with current regimen. Social work following and verifying if IV abx will be needed on discharge. Awaiting MRI. Due to multiple complex medical issues, prognosis is guarded. Possible discharge in 24-48 hours. The impression and plan of care has been dictated by Juanita Walsh, Nurse Practitioner as directed. Dr. Osmin MD I have performed a history and examination and MDM of this patient, discussed the same with the dictator, and agree with the dictator's assessment and plan as written ,documented as a scribe. Based on total visit time, I have performed more than 50% of the visit. Objective - Vital Signs Vital signs: Vital Signs Temp 98.2 F 11/13/21 13:00 Pulse 72 11/13/21 13:00 Resp 16 11/13/21 13:00 BP 159/84 11/13/21 13:00 Pulse Ox 98 11/13/21 13:00 Intake & Output 11/12/21 11/13/21 11/13/21 18:59 06:59 18:59 Intake Total 360 910 Output Total 600 Balance -240 910 Intake: Intake, IV Titration 350 Amount Cefepime 2 gm In Sodium 100 Chloride 0.9% 100 ml @ 25 mls/hr IVPB Q8HR [facility] Rx# :[id number] Vancomycin 1,000 mg In 250 Sodium Chloride 0.9% 250 ml @ 125 mls/hr IVPB Q8H [facility] Rx#:[id number] Oral 360 560 Output: Urine 600 Other: Voiding Method Toilet Toilet Toilet Urinal # Voids 3 # Bowel Movements 1 - Labs CBC & Chem 7: 11/11/21 06:24 11/13/21 05:38 Labs: Abnormal Lab Results - Last 24 Hours (Table) 11/12/21 11/12/21 11/13/21 Range/Units 17:50 20:07 05:38 Sodium 134 L (137-145) mmol/L Glucose 270 H (74-99) mg/dL POC Glucose (mg/dL) 213 H 351 H (75-99) mg/dL Calcium 8.1 L (8.4-10.2) mg/dL 11/13/21 11/13/21 Range/Units 07:01 12:04 Sodium (137-145) mmol/L Glucose (74-99) mg/dL POC Glucose (mg/dL) 213 H 231 H (75-99) mg/dL Calcium (8.4-10.2) mg/dL Microbiology - Last 24 Hours (Table) 11/08/21 02:55 Gram Stain - Final Toe - Left First Wound Culture - Final Methicillin resist S. aureus Klebsiella oxytoca Acinetobacter lwoffi grp 11/07/21 13:48 Blood Culture - Preliminary Blood No Growth after 120 hours 11/07/21 13:48 Blood Culture - Preliminary Blood No Growth after 120 hours
[2021-11-14] MEDS: HYDROmorphone 0.5 MG/0.5 ML SYRINGE IVP PRN ×6 (04:23→21:23)
[2021-11-14] MEDS: VANCOMYCIN 1,000 MG in SODIUM CHLORIDE 0.9% 250 ML IVPB SCH ×3 (05:15→22:23)
[2021-11-14 07:28] LABS: Glucose,Whole Blood 115 mg/dL (75-99)
[2021-11-14] MEDS: GABAPENTIN 400 MG CAP PO SCH ×2 (08:00→17:11)
[2021-11-14] MEDS: PANTOPRAZOLE 40 MG TABLET PO SCH ×2 (08:00→17:12)
[2021-11-14] MEDS: INSULIN ASPART (NovoLOG) 100 UNIT/ML VIAL SQ SCH ×4 (08:00→22:32)
[2021-11-14] MEDS: INSULIN DETEMIR (LEVEMIR) 100 UNIT/ML SYR SQ SCH ×2 (08:01→22:24)
[2021-11-14] MEDS ORDERED: VANCOMYCIN TROUGH DUE 1 EACH MISC MISCELLANE ONE (11:00)
[2021-11-14 11:36] LABS: Glucose,Whole Blood 97 mg/dL (75-99)
--- NOTE | 2021-11-14 12:14 | MR ---
EXAMINATION TYPE: MR foot LT wo/w con DATE OF EXAM: 11/14/2021 COMPARISON: Nuclear medicine three-phase bone scan 11/13/[address] 11/07/2021. Radiograph 04/09/2017. HISTORY: 50-year-old male pain, osteomyelitis of left first toe/ distal phalanx. Technique: Multiplanar, multisequence images of the left foot were obtained before and after administ ration of 9 mL intravenous Gadavist gadolinium contrast. FINDINGS: There is soft tissue swelling of the great toe. Focal susceptibility artifact involves the plantar so ft tissues at the level of the distal phalanx and obscures assessment of the adjacent cortex and gabino ow. Sagittal STIR shows some increased fluid signal within the distal half of the first distal phalanx bu t no sarabjit bone marrow placement is identified of the portion of the distal phalanx that is not obscu red by the susceptibility artifact. No additional abnormal bone marrow replacement throughout the remainder of the foot. Some underlying degenerative changes suggested at the first MTP joint. Generalized edematous change along the plantar musculature, likely neuropathic change. There is mild enhancement and tenosynovial fluid along the flexor hallucis longus. IMPRESSION: 1. Soft tissue swelling of the great toe suggests edema/cellulitis. 2. Focal susceptibility artifact involves the plantar soft tissues at the level of the first distal p halanx and obscures assessment of the adjacent bone. Correlate for any retained foreign body, previou s surgery here, or deep ulcer with prominent air. Radiographic assessment may be useful. Consider con ed-down images of the great toe with the remaining toes splayed out the way. 3. The visualized portion of the first distal phalanx shows mild edema but without sarabjit bone marrow replacement. Finding suggests osteitis without osteomyelitis along the visualized portion of the bone . Again, the plantar portion of the bone is obscured by susceptibility artifact. Given positive three -phase bone scan findings on 11/13/2021, unable to exclude osteomyelitis here. Further clinical correla tion recommended. 4. Mild flexor hallucis longus tenosynovitis, favored to be reactive rather than infective at this ti me.
--- NOTE | 2021-11-14 15:17 | P.GSCN ---
History of Present Illness History of present illness: 50-year-old white male, patient has history of diabetes patient has history of trauma to the left foot big toe according to patient when he was having she shower he stepped on shower drain gently and a he developed some redness and swelling of the left foot big toe. Patient has been admitted and has extensive workup including a venous ultrasound of the leg which was negative for DVT. Alejandro schroeder also has a bone scan and MRIs of the foot it shows a left foot big toe distal phalanx increase in greater tracer suggestive of acute osteo-mellitus. Medical history COPD diabetes Neck examination neck is supple no bruit appreciated Chest is clear from first and second sound normal good entry both lungs Abdomen soft nontender Femorals are 1+ bilateral patient had a right foot toe amputation done in the past left foot big toe between the webspace there is small opening of the skin and there was some dry skin which was removed and no drainage or noted The wound was cleaned with saline we placed X a silver between the webspace and into the small opening between the webspace patient IV antibiotic under infectious disease at this point most likely patient should respond with an IV antibiotic at this point there is no role of surgical intervention follow with you dressing should be changed every 48 hours with X a silver Past Medical History Past Medical History: Asthma, COPD, CVA/TIA, Diabetes Mellitus Additional Past Medical History / Comment(s): neuropathy. TIA 01-23-18 History of Any Multi-Drug Resistant Organisms: MRSA Year Discovered:: 11/08/21 MDRO Source:: Toe Left First Past Surgical History: Orthopedic Surgery Past Psychological History: ADD/ADHD Smoking Status: Former smoker Past Alcohol Use History: None Reported Past Drug Use History: Marijuana - Past Family History Mother Family Medical History: Diabetes Mellitus Father Family Medical History: Diabetes Mellitus Medications and Allergies Home Medications Medication Instructions Recorded Confirmed Type Gabapentin [Neurontin] 400 mg PO BID 11/07/21 11/07/21 History Insulin Glargine [Lantus Vial] 70 unit SQ BID 11/07/21 11/07/21 History lisinopriL 40 mg PO DAILY 11/07/21 11/07/21 History Allergies Allergy/AdvReac Type Severity Reaction Status Date / Time No Known Allergies Allergy Verified 11/07/21 14:00 Surgical - Exam Vital Signs Temp Pulse Resp BP Pulse Ox 97.7 F 97 20 138/84 96 05/03/22 12:43 11/07/21 12:43 11/07/21 12:43 11/07/21 12:43 11/07/21 12:43 Results - Labs 11/11/21 06:24 11/13/21 05:38 Abnormal Lab Results - Last 24 Hours (Table) 11/13/21 11/13/21 11/14/21 Range/Units 17:19 19:55 07:27 ESR (0-15) mm/hr POC Glucose (mg/dL) 337 H 122 H 115 H (75-99) mg/dL 11/14/21 Range/Units 11:24 ESR 56 H (0-15) mm/hr POC Glucose (mg/dL) (75-99) mg/dL Microbiology - Last 24 Hours (Table) 11/07/21 13:48 Blood Culture - Final Blood No Growth after 144 hours 11/07/21 13:48 Blood Culture - Final Blood No Growth after 144 hours
[2021-11-14] MEDS: HYDROcodone/APAP 10-325MG 1 EACH TAB PO PRN ×2 (17:11→22:38)
[2021-11-14 17:31] LABS: Glucose,Whole Blood 154 mg/dL (75-99)
[2021-11-14 22:01] LABS: Glucose,Whole Blood 248 mg/dL (75-99)
[2021-11-15] MEDS: HYDROmorphone 0.5 MG/0.5 ML SYRINGE IVP PRN ×6 (00:34→20:58)
[2021-11-15] MEDS: CEFEPIME 2 GM in SODIUM CHLORIDE 0.9% 100 ML IVPB SCH ×3 (00:38→16:50)
[2021-11-15] MEDS: HEPARIN SODIUM,PORCINE/PF 5,000 UNIT/0.5 ML SYRINGE SQ SCH ×3 (01:28→16:48)
[2021-11-15] MEDS: GABAPENTIN 400 MG CAP PO SCH ×4 (01:29→20:57)
--- NOTE | 2021-11-15 01:32 | P.PN ---
Subjective Progress Note Date: 11/14/21 This is a pleasant 50-year-old male who presented to the emergency department with left lower extremity redness and swelling and also left toe possible infection with worsening. Patient reports that he had some Bactrim at home and started himself and noticed a streak up the left calf extending to the thigh with increased redness and swelling and severe pain 10/10 and presented to the emergency department for further evaluation. 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 Patient denies any further illicit drug use and reports to quitting smoking approximately 8-1/2 years ago and has not had a drink in the last 12 years. Patient diagnosed with diabetes and initially started on oral diabetic agents although unable to tolerate due to excessive diarrhea and is maintained on insulin. Patient appears noncompliant with medications and will obtain hemoglobin A1c is blood sugars are extremely high and found to be over 600 in the ER. Will resume home medications and initiate sliding scale along with Accu-Cheks before meals and at bedtime. Patient started on broad-spectrum antibiotics and was given a dose of Zosyn and will continue with IV vancomycin and infectious disease is being consulted. CT of the lower extremity ordered as patient is in extreme pain and unable to touch the left lower extremity. Patient is being admitted for left lower extremity cellulitis and awaiting ID consult. 11/08/2021 Patient is seen in follow-up today and is currently maintained on IV antibiotics in the form of vancomycin along with IV cefepime being added. Infectious disease is following closely and patient continues to be extremely sensitive and tender to the touch with severe pain of 10/10 on the pain scale. Patient is on IV pain medications along with oral pain medications and encourage the patient to increase activity as tolerated. Blood sugars better improved on current regimen and will continue. Recommend continue with Accu-Cheks before meals and at bedtime and as needed. Sodium also improved at 136. Patient is afebrile and denies any chest pain or shortness of breath. Patient denies nausea or vomiting and is tolerating diet. Venous Doppler of the left lower extremity was negative for DVT. 11/09/2021 Patient evaluated today and is maintained on IV cefepime and vancomycin. ID is following and awaiting cultures to determine if IV antibiotics is needed on discharge. Patient is asking when he can be discharged. Patient continues with some redness and swelling although somewhat improved. Patient less sensitive to palpation of the left lower extremity on exam. Patient remains afebrile and blood sugars have been variable. Patient denies chest pain or shortness of breath. Patient is tolerating diet with no nausea or vomiting noted. 11/10/2021 Patient is seen this morning and is maintained on IV antibiotics with ID following closely. Cultures revealing presumptive MRSA and will continue with IV vanco. Cefepime discontinued. Patient continues to endorse 10/10 pain and will adjust pain medications. Patient also with extreme sensitivity to the left lower extremity and will order bone scan. Encouraged increased activity as tolerated and local wound care to the left foot per ID recommendations. Recommend to continue monitoring blood sugars closely with accuchecks achs. Patient is afebrile and denies chest pain or shortness of breath. 11/13/2021 Patient is seen today in follow up and is scheduled for bone scan. ID following and patient is maintained on IV abx in the form of cefepime and vancomycin. Patient is anxious about going home and is asking when he is being discharged. Patient continues with pain of the left lower extremity. Patient cultures with MRSA. Patient is afebrile. Patient denies chest pain or shortness of breath. Patient tolerating diet and denies nausea or vomiting. 11/14/2021 Patient is evaluated today and is scheduled for MRI of the left foot with ID following closely. Patient is continued on IV antibiotics in the form of vancomycin and cefepime and will continue. Blood sugars being closely monitored. Recommend repeat labs and will discuss further with ID about treatment plan and possible need for IV abx in the outpatient setting. Social work following and v erifying coverage for outpatient abx therapy. Patient is afebrile, patient denies chest pain or palpitations. Patient would like to go home. Review of systems: Constitutional: No reports of fatigue, fever, or chills Cardiovascular: No reports of chest pain or palpitations Respiratory: No reports of shortness of breath or cough GI: No reports of nausea, vomiting, or diarrhea : No reports of dysuria or retention Neurovascular: No reports of weakness or numbness, reports continued pain of the left lower extremity with improvement in the swelling All medications have been reviewed Active Medications Acetaminophen (Acetaminophen Tab 325 Mg Tab) 650 mg PO Q6HR PRN PRN Reason: Mild Pain or Fever > 100.5 Hydrocodone Bitart/Acetaminophen (Hydrocodone/Apap 10-325mg 1 Each Tab) 1 each PO Q4H PRN PRN Reason: Moderate Pain Last Admin: 11/14/21 22:38 Dose: 1 each Documented by: Gabapentin (Gabapentin 400 Mg Cap) 400 mg PO TID [facility] Last Admin: 11/14/21 17:11 Dose: 400 mg Documented by: Heparin Sodium (Porcine) (Heparin Sodium,Porcine/Pf 5,000 Unit/0.5 Ml Syringe) 5,000 unit SQ Q8HR [facility] Last Admin: 11/14/21 17:12 Dose: 5,000 unit Documented by: Hydromorphone HCl (Hydromorphone 0.5 Mg/0.5 Ml Syringe) 0.5 mg IVP Q3HR PRN PRN Reason: Moderate Pain Last Admin: 11/15/21 00:34 Dose: 0.5 mg Documented by: Vancomycin HCl 1,000 mg/ (Sodium Chloride) 250 mls @ 125 mls/hr IVPB Q8H [facility] Last Admin: 11/14/21 22:23 Dose: 125 mls/hr Documented by: Cefepime HCl 2 gm/ Sodium (Chloride) 100 mls @ 25 mls/hr IVPB Q8HR [facility]; Protocol Last Admin: 11/15/21 00:38 Dose: 25 mls/hr Documented by: Insulin Aspart (Insulin Aspart (Novolog) 100 Unit/Ml Vial) 0 unit SQ ACHS [facility]; Protocol Last Admin: 11/14/21 22:32 Dose: 4 unit Documented by: Insulin Detemir (Insulin Detemir (Levemir) 100 Unit/Ml Syr) 70 unit SQ BID [facility] Last Admin: 11/14/21 22:24 Dose: 70 unit Documented by: Naloxone HCl (Naloxone 0.4 Mg/Ml 1 Ml Vial) 0.2 mg IV Q2M PRN PRN Reason: Opioid Reversal Pantoprazole Sodium (Pantoprazole 40 Mg Tablet) 40 mg PO AC-BID [facility] Last Admin: 11/14/21 17:12 Dose: 40 mg Documented by: Physical exam: Gen: This is a 50-year-old male awake, alert and oriented 3, well-developed, well-nourished. HEENT: Head is atraumatic, normocephalic. Pupils equal, round. Sclerae is anicteric. NECK: Supple. No JVD. No lymphadenopathy. No thyromegaly. LUNGS: Clear to auscultation. No wheezes or rhonchi. No intercostal retractions. HEART: Regular rate and rhythm. No murmur. ABDOMEN: Soft. Bowel sounds are present. No masses. No tenderness. EXTREMITIES: No pedal edema. No calf tenderness. Left lower extremity redness and swelling has improved, tender on palpation NEUROLOGICAL: Patient is awake, alert and oriented x3. Cranial nerves 2 through 12 are grossly intact. Assessment: Left foot cellulitis, possibly secondary to a traumatic wound in between the left great toe and second digit medial aspect with some evidence of maceration and drainage noted and possibly a component of poorly controlled diabetes mellitus Bone scan suggestive of osteomyelitis of the left foot first toe MRSA on the left foot wound culture Diabetic ulcer in between great toe and first digit Diabetes mellitus uncontrolled with hyperglycemia Lactic acidosis, present on admission, improved Hyponatremia, improved History of asthma/COPD, not in acute exacerbation CVA/TIA history Past medical history of nicotine abuse Occasional THC use GI prophylaxis DVT prophylaxis Full code Plan: Recommend patient to continue on IV antibiotics in the form of vancomycin and cefepime with infectious disease following closely. wound culture showing MRSA. Bone scan done today is suggestive of osteomyelitis of the left foot first toe. Left foot MRI ordered and shows findings suggestive of osteitis and cannot completely exclude osteomyelitis and possible foreign body and imaging somewhat skewed secondary to artifact and recommending coned down images of the left great toe. This was discussed with infectious disease as well as the patient. Will consult vascular surgery Dr. Casarez for evaluation and appreciate input and recommendations. Encouraged increased activity as tolerated and continue with consistent carb diet and Accu-Cheks before meals and at bedtime. Blood sugars improved and will continue with current regimen. Social work following and verifying IV abx coverage that will likely be needed on discharge. Possible PICC in 24 hours. Am labs ordered. Due to multiple complex medical issues, prognosis is guarded. Possible discharge in 24-48 hours. The impression and plan of care has been dictated by Juanita Walsh, Nurse Practitioner as directed. Dr. Osmin MD I have performed a history and examination and MDM of this patient, discussed the same with the dictator, and agree with the dictator's assessment and plan as written ,documented as a scribe. Based on total visit time, I have performed more than 50% of the visit. Objective - Vital Signs Vital signs: Vital Signs Temp 98.5 F 11/14/21 05:00 Pulse 78 11/14/21 05:00 Resp 18 11/14/21 05:00 BP 156/94 11/14/21 05:00 Pulse Ox 96 11/14/21 05:00 Intake & Output 11/13/21 11/14/21 11/14/21 18:59 06:59 18:59 Intake Total 2742 450 Balance 2742 450 Intake: Intake, IV Titration 350 450 Amount Cefepime 2 gm In Sodium 100 200 Chloride 0.9% 100 ml @ 25 mls/hr IVPB Q8HR [facility] Rx# :[id number] Vancomycin 1,000 mg In 250 250 Sodium Chloride 0.9% 250 ml @ 125 mls/hr IVPB Q8H [facility] Rx#:[id number] Oral 2392 Other: Voiding Method Toilet Toilet - Labs CBC & Chem 7: 11/11/21 06:24 11/13/21 05:38 Labs: Abnormal Lab Results - Last 24 Hours (Table) 11/13/21 11/13/21 11/13/21 Range/Units 12:04 17:19 19:55 POC Glucose (mg/dL) 231 H 337 H 122 H (75-99) mg/dL 11/14/21 Range/Units 07:27 POC Glucose (mg/dL) 115 H (75-99) mg/dL Microbiology - Last 24 Hours (Table) 11/07/21 13:48 Blood Culture - Final Blood No Growth after 144 hours 11/07/21 13:48 Blood Culture - Final Blood No Growth after 144 hours 11/08/21 02:55 Gram Stain - Final Toe - Left First Wound Culture - Final Methicillin resist S. aureus Klebsiella oxytoca Acinetobacter lwoffi grp
[2021-11-15] MEDS: VANCOMYCIN 1,000 MG in SODIUM CHLORIDE 0.9% 250 ML IVPB SCH ×3 (05:37→20:56)
[2021-11-15 07:02] LABS: Glucose,Whole Blood 203 mg/dL (75-99)
[2021-11-15 07:06] LABS: Basophils # (A) 0.1 k/uL (0-0.2); Basophils % (A) 1 %; Eosinophils # (A) 0.1 k/uL (0-0.7); Eosinophils % (A) 1 %; HCT 38.9 % (39.0-53.0); HGB 11.8 gm/dL (13.0-17.5); Hypochromasia Slight; Lymphocytes # (A) 1.5 k/uL (1.0-4.8); Lymphocytes % (A) 27 %; MCH 28.6 pg (25.0-35.0); MCHC 30.2 g/dL (31.0-37.0); MCV 94.5 fL (80.0-100.0); Monocytes # (A) 0.4 k/uL (0-1.0); Monocytes % (A) 7 %; Neutrophils # (A) 3.1 k/uL (1.3-7.7); Neutrophils % (A) 59 %; Platelet Count 337 k/uL (150-450); RBC 4.12 m/uL (4.30-5.90); RDW 13.3 % (11.5-15.5); WBC 5.3 k/uL (3.8-10.6)
[2021-11-15 07:10] LABS: INR 0.9 (<1.2); Prothrombin Time 9.8 sec (9.0-12.0)
[2021-11-15 07:35] LABS: African American GFR (CKD) >90 (>60 ml/min/1.73 sqM); Anion Gap 3 mmol/L; Blood Urea Nitrogen 16 mg/dL (9-20); Calcium 8.4 mg/dL (8.4-10.2); Carbon Dioxide 31 mmol/L (22-30); Chloride 102 mmol/L (98-107); Glucose 181 mg/dL (74-99); Non-African American GFR(CKD) 83 (>60 ml/min/1.73 sqM); Potassium 4.4 mmol/L (3.5-5.1); Sodium 136 mmol/L (137-145)
[2021-11-15] MEDS: INSULIN DETEMIR (LEVEMIR) 100 UNIT/ML SYR SQ SCH ×2 (07:51→20:57)
[2021-11-15] MEDS: PANTOPRAZOLE 40 MG TABLET PO SCH ×2 (07:52→16:49)
[2021-11-15] MEDS: INSULIN ASPART (NovoLOG) 100 UNIT/ML VIAL SQ SCH ×4 (07:53→20:57)
[2021-11-15 12:01] LABS: Glucose,Whole Blood 135 mg/dL (75-99)
--- NOTE | 2021-11-15 14:15 | P.PN ---
Subjective Progress Note Date: 11/15/21 This is a pleasant 50-year-old male who presented to the emergency department with left lower extremity redness and swelling and also left toe possible infection with worsening. Patient reports that he had some Bactrim at home and started himself and noticed a streak up the left calf extending to the thigh with increased redness and swelling and severe pain 10/10 and presented to the emergency department for further evaluation. 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 Patient denies any further illicit drug use and reports to quitting smoking approximately 8-1/2 years ago and has not had a drink in the last 12 years. Patient diagnosed with diabetes and initially started on oral diabetic agents although unable to tolerate due to excessive diarrhea and is maintained on insulin. Patient appears noncompliant with medications and will obtain hemoglobin A1c is blood sugars are extremely high and found to be over 600 in the ER. Will resume home medications and initiate sliding scale along with Accu-Cheks before meals and at bedtime. Patient started on broad-spectrum antibiotics and was given a dose of Zosyn and will continue with IV vancomycin and infectious disease is being consulted. CT of the lower extremity ordered as patient is in extreme pain and unable to touch the left lower extremity. Patient is being admitted for left lower extremity cellulitis and awaiting ID consult. 11/08/2021 Patient is seen in follow-up today and is currently maintained on IV antibiotics in the form of vancomycin along with IV cefepime being added. Infectious disease is following closely and patient continues to be extremely sensitive and tender to the touch with severe pain of 10/10 on the pain scale. Patient is on IV pain medications along with oral pain medications and encourage the patient to increase activity as tolerated. Blood sugars better improved on current regimen and will continue. Recommend continue with Accu-Cheks before meals and at bedtime and as needed. Sodium also improved at 136. Patient is afebrile and denies any chest pain or shortness of breath. Patient denies nausea or vomiting and is tolerating diet. Venous Doppler of the left lower extremity was negative for DVT. 11/09/2021 Patient evaluated today and is maintained on IV cefepime and vancomycin. ID is following and awaiting cultures to determine if IV antibiotics is needed on discharge. Patient is asking when he can be discharged. Patient continues with some redness and swelling although somewhat improved. Patient less sensitive to palpation of the left lower extremity on exam. Patient remains afebrile and blood sugars have been variable. Patient denies chest pain or shortness of breath. Patient is tolerating diet with no nausea or vomiting noted. 11/10/2021 Patient is seen this morning and is maintained on IV antibiotics with ID following closely. Cultures revealing presumptive MRSA and will continue with IV vanco. Cefepime discontinued. Patient continues to endorse 10/10 pain and will adjust pain medications. Patient also with extreme sensitivity to the left lower extremity and will order bone scan. Encouraged increased activity as tolerated and local wound care to the left foot per ID recommendations. Recommend to continue monitoring blood sugars closely with accuchecks achs. Patient is afebrile and denies chest pain or shortness of breath. 11/13/2021 Patient is seen today in follow up and is scheduled for bone scan. ID following and patient is maintained on IV abx in the form of cefepime and vancomycin. Patient is anxious about going home and is asking when he is being discharged. Patient continues with pain of the left lower extremity. Patient cultures with MRSA. Patient is afebrile. Patient denies chest pain or shortness of breath. Patient tolerating diet and denies nausea or vomiting. 11/14/2021 Patient is evaluated today and is scheduled for MRI of the left foot with ID following closely. Patient is continued on IV antibiotics in the form of vancomycin and cefepime and will continue. Blood sugars being closely monitored. Recommend repeat labs and will discuss further with ID about treatment plan and possible need for IV abx in the outpatient setting. Social work following and v erifying coverage for outpatient abx therapy. Patient is afebrile, patient denies chest pain or palpitations. Patient would like to go home. 11/15/2021 Patient is seen this morning and follow-up with vascular surgery and infectious disease following closely. Vascular surgery recommends IV antibiotics and continued wound care with absorptive silver and dressing changes every 48 hours. Patient will likely need repeat MRI in the outpatient setting in 6-8 weeks. Plan is for PICC line and possible IV antibiotics in the outpatient setting and awaiting and appreciate input and recommendations from infectious disease about antibiotics and duration as social work following and needs this documentation to submit for authorization through his insurance. Homecare and infusion is being arranged. Patient is becoming more agitated and irritated about continuing to be hospitalized and would like to go home. Discussed with him the importance of having the proper treatment plan and antibiotics that is appropriate for him. Will need to discuss further with infectious disease about treatment plan moving forward. Patient is afebrile, denies any shortness of breath or chest pain. Blood sugars have been controlled on current regimen. Vital signs are stable and lab within normal limits. Review of systems: Constitutional: No reports of fatigue, fever, or chills Cardiovascular: No reports of chest pain or palpitations Respiratory: No reports of shortness of breath or cough GI: No reports of nausea, vomiting, or diarrhea : No reports of dysuria or retention Neurovascular: No reports of weakness or numbness, reports continued pain of the left lower extremity with improvement in the swelling All medications have been reviewed Active Medications Acetaminophen (Acetaminophen Tab 325 Mg Tab) 650 mg PO Q6HR PRN PRN Reason: Mild Pain or Fever > 100.5 Hydrocodone Bitart/Acetaminophen (Hydrocodone/Apap 10-325mg 1 Each Tab) 1 each PO Q6HR PRN PRN Reason: Pain Gabapentin (Gabapentin 400 Mg Cap) 400 mg PO TID [facility] Last Admin: 11/15/21 07:52 Dose: 400 mg Documented by: Heparin Sodium (Porcine) (Heparin Sodium,Porcine/Pf 5,000 Unit/0.5 Ml Syringe) 5,000 unit SQ Q8HR [facility] Last Admin: 11/15/21 07:52 Dose: 5,000 unit Documented by: Vancomycin HCl 1,000 mg/ (Sodium Chloride) 250 mls @ 125 mls/hr IVPB Q8H [facility] Last Admin: 11/15/21 12:55 Dose: 125 mls/hr Documented by: Cefepime HCl 2 gm/ Sodium (Chloride) 100 mls @ 25 mls/hr IVPB Q8HR [facility]; Pr otocol Last Admin: 11/15/21 07:52 Dose: 25 mls/hr Documented by: Insulin Aspart (Insulin Aspart (Novolog) 100 Unit/Ml Vial) 0 unit SQ ACHS [facility]; Protocol Last Admin: 11/15/21 12:54 Dose: 1 unit Documented by: Insulin Detemir (Insulin Detemir (Levemir) 100 Unit/Ml Syr) 70 unit SQ BID [facility] Last Admin: 11/15/21 07:51 Dose: 70 unit Documented by: Naloxone HCl (Naloxone 0.4 Mg/Ml 1 Ml Vial) 0.2 mg IV Q2M PRN PRN Reason: Opioid Reversal Pantoprazole Sodium (Pantoprazole 40 Mg Tablet) 40 mg PO AC-BID [facility] Last Admin: 11/15/21 07:52 Dose: 40 mg Documented by: Physical exam: Gen: This is a 50-year-old male awake, alert and oriented 3, well-developed, well-nourished. HEENT: Head is atraumatic, normocephalic. Pupils equal, round. Sclerae is anicteric. NECK: Supple. No JVD. No lymphadenopathy. No thyromegaly. LUNGS: Clear to auscultation. No wheezes or rhonchi. No intercostal retractions. HEART: Regular rate and rhythm. No murmur. ABDOMEN: Soft. Bowel sounds are present. No masses. No tenderness. EXTREMITIES: No pedal edema. No calf tenderness. Left lower extremity redness and swelling has improved, tender on palpation NEUROLOGICAL: Patient is awake, alert and oriented x3. Cranial nerves 2 through 12 are grossly intact. Assessment: Left foot cellulitis, possibly secondary to a traumatic wound in between the left great toe and second digit medial aspect with some evidence of maceration and drainage noted and possibly a component of poorly controlled diabetes mellitus Bone scan suggestive of osteomyelitis of the left foot first toe MRSA on the left foot wound culture Diabetic ulcer in between great toe and first digit Diabetes mellitus uncontrolled with hyperglycemia Lactic acidosis, present on admission, improved Hyponatremia, improved History of asthma/COPD, not in acute exacerbation CVA/TIA history Past medical history of nicotine abuse Occasional THC use GI prophylaxis DVT prophylaxis Full code Plan: Recommend patient to continue on IV antibiotics in the form of vancomycin and cefepime with infectious disease following closely. wound culture showing MRSA. Bone scan done today is suggestive of osteomyelitis of the left foot first toe. Left foot MRI showed findings suggestive of osteitis and cannot completely exclude osteomyelitis and possible foreign body and imaging somewhat skewed secondary to artifact and recommending coned down images of the left great toe. This was discussed with infectious disease as well as the patient. Dr. Casarez did bedside evaluation and mild debridement and recommends no surgical interventions at this time and close outpatient follow-up with IV antibiotics. Patient may require MRI in the outpatient setting in 6-8 weeks for further evaluation. Encouraged increased activity as tolerated and continue with consistent carb diet and Accu-Cheks before meals and at bedtime. Will continue with current regimen. Social work following and verifying IV abx coverage that will likely be needed on discharge. Need antibiotic recommendations and duration to obtain insurance authorization for outpatient antibiotics. Patient is receiving a PICC today Due to multiple complex medical issues, prognosis is guarded. Possible discharge in 24 hours. The impression and plan of care has been dictated by Juanita Walsh, Nurse Practitioner as directed. Dr. Osmin MD I have performed a history and examination and MDM of this patient, discussed the same with the dictator, and agree with the dictator's assessment and plan as written ,documented as a scribe. Based on total visit time, I have performed more than 50% of the visit. Objective - Vital Signs Vital signs: Vital Signs Temp 98.1 F 11/15/21 05:07 Pulse 72 11/15/21 05:07 Resp 16 11/15/21 05:07 BP 145/74 11/15/21 05:07 Pulse Ox 94 L 11/15/21 05:07 Intake & Output 11/14/21 11/15/21 11/15/21 18:59 06:59 18:59 Intake Total 450 500 Balance 450 500 Intake: Intake, IV Titration 450 Amount Cefepime 2 gm In Sodium 200 Chloride 0.9% 100 ml @ 25 mls/hr IVPB Q8HR [facility] Rx# :[id number] Vancomycin 1,000 mg In 250 Sodium Chloride 0.9% 250 ml @ 125 mls/hr IVPB Q8H [facility] Rx#:[id number] Oral 500 Other: Voiding Method Toilet Toilet Toilet # Voids 2 - Labs CBC & Chem 7: 11/15/21 06:02 11/15/21 06:02 Labs: Abnormal Lab Results - Last 24 Hours (Table) 11/14/21 11/14/21 11/14/21 Range/Units 11:24 17:27 21:59 RBC (4.30-5.90) m/uL Hgb (13.0-17.5) gm/dL Hct (39.0-53.0) % MCHC (31.0-37.0) g/dL ESR 56 H (0-15) mm/hr Sodium (137-145) mmol/L Carbon Dioxide (22-30) mmol/L Glucose (74-99) mg/dL POC Glucose (mg/dL) 154 H 248 H (75-99) mg/dL 11/15/21 11/15/21 11/15/21 Range/Units 06:02 06:02 07:00 RBC 4.12 L (4.30-5.90) m/uL Hgb 11.8 L (13.0-17.5) gm/dL Hct 38.9 L (39.0-53.0) % MCHC 30.2 L (31.0-37.0) g/dL ESR (0-15) mm/hr Sodium 136 L (137-145) mmol/L Carbon Dioxide 31 H (22-30) mmol/L Glucose 181 H (74-99) mg/dL POC Glucose (mg/dL) 203 H (75-99) mg/dL
[2021-11-15] MEDS ORDERED: LIDOCAINE 1% PF 10 MG/ML (5 ML AMP) SQ ONE (14:20)
[2021-11-15] MEDS: HYDROcodone/APAP 10-325MG 1 EACH TAB PO PRN ×2 (15:02→22:27)
--- NOTE | 2021-11-15 15:59 | IR ---
PICC LINE PLACEMENT: HISTORY: Infection requiring long-term antibiotic therapy PROCEDURE: Ultrasound and fluoroscopic guidance of PICC line placement. COMPLICATIONS: None ANESTHESIA: 1. 1% Lidocaine locally. FINDINGS/TECHNIQUE: The procedure was explained to the patient. The risks, complications, benefits and alternatives were discussed and any questions were answered. Informed consent was obtained. The patient was placed supine on the fluoroscopic table and prepped and draped in the usual sterile fash ion. Utilizing a 21 gauge needle and sonographic and fluoroscopic guidance, access in the left basi lic vein was achieved and there is placement of a 0.018 guidewire. The vein is patent. A 4-F sheath was placed over the guidewire. The guidewire and dilator were removed and a 4-F. PICC line was plac ed through the sheath with the tip at the level of the SVC. The sheath was removed, the catheter was flushed and sutured into position. The patient was stable throughout the procedure and remained sta ble upon discharge from the Department of Radiology. The vein puncture was patent under ultrasound. A krishnamurthy scale image was obtained to document patency of the vein punctured. All elements of the maximal barrier technique were utilized. FLUOROSCOPY TIME: 0.1 minute and one images submitted IMPRESSION: Successful PICC line placement under ultrasound and fluoroscopic guidance.
[2021-11-15 17:13] LABS: Glucose,Whole Blood 102 mg/dL (75-99)
[2021-11-15 20:19] LABS: Glucose,Whole Blood 189 mg/dL (75-99)
[2021-11-16] MEDS: HYDROmorphone 0.5 MG/0.5 ML SYRINGE IVP PRN ×4 (00:56→13:42)
[2021-11-16] MEDS: HEPARIN SODIUM,PORCINE/PF 5,000 UNIT/0.5 ML SYRINGE SQ SCH ×2 (00:56→08:42)
[2021-11-16] MEDS: CEFEPIME 2 GM in SODIUM CHLORIDE 0.9% 100 ML IVPB SCH ×2 (00:57→08:41)
[2021-11-16] MEDS: VANCOMYCIN 1,000 MG in SODIUM CHLORIDE 0.9% 250 ML IVPB SCH (04:25)
[2021-11-16] MEDS: HYDROcodone/APAP 10-325MG 1 EACH TAB PO PRN ×2 (04:27→10:47)
--- NOTE | 2021-11-16 06:52 | P.PN ---
Subjective Progress Note Date: 11/14/21 Principal diagnosis: Left diabetic foot infection Patient is a 50 year old male with past medical history significant for diabetes mellitus presented to hospital with left foot and leg pain in this patient did have a laceration to the lateral aspect of the left big toe with secondary cellulitis. On today's evaluation that is 11/14/2021, the patient is afebrile, the patient pain to the left foot is controlled, patient denies chest pain , shortness of breath or cough , the patient denies abdominal pain and no diarrhea with antibiotic therapy , patient pain to the left big toe is currently controlled Objective - Vital Signs Vital signs: Vital Signs Temp 98.5 F 11/14/21 05:00 Pulse 78 11/14/21 05:00 Resp 18 11/14/21 05:00 BP 156/94 11/14/21 05:00 Pulse Ox 96 11/14/21 05:00 Intake & Output 11/13/21 11/14/21 11/14/21 18:59 06:59 18:59 Intake Total 2742 450 Balance 2742 450 Intake: Intake, IV Titration 350 450 Amount Cefepime 2 gm In Sodium 100 200 Chloride 0.9% 100 ml @ 25 mls/hr IVPB Q8HR [facility] Rx# :[id number] Vancomycin 1,000 mg In 250 250 Sodium Chloride 0.9% 250 ml @ 125 mls/hr IVPB Q8H [facility] Rx#:[id number] Oral 2392 Other: Voiding Method Toilet Toilet Toilet - Exam GENERAL DESCRIPTION: A middle-age male lying in bed in no distress RESPIRATORY SYSTEM: Unlabored breathing , decreased breath sounds at bases HEART: S1 S2 regular rate and rhythm , ABDOMEN: Soft , no tenderness EXTREMITIES: Left big toe remains to be swollen with the blistering on the lateral aspect however the redness has slightly decreased no drainage - Labs CBC & Chem 7: 11/15/21 06:02 11/15/21 06:02 Labs: Abnormal Lab Results - Last 24 Hours (Table) 11/13/21 11/13/21 11/13/21 Range/Units 12:04 17:19 19:55 POC Glucose (mg/dL) 231 H 337 H 122 H (75-99) mg/dL 11/14/21 Range/Units 07:27 POC Glucose (mg/dL) 115 H (75-99) mg/dL Microbiology - Last 24 Hours (Table) 11/07/21 13:48 Blood Culture - Final Blood No Growth after 144 hours 11/07/21 13:48 Blood Culture - Final Blood No Growth after 144 hours 11/08/21 02:55 Gram Stain - Final Toe - Left First Wound Culture - Final Methicillin resist S. aureus Klebsiella oxytoca Acinetobacter lwoffi grp Assessment and Plan (1) Cellulitis of left lower extremity Current Visit: Yes Status: Acute Code(s): L03.116 - CELLULITIS OF LEFT LOWER LIMB SNOMED Code(s): 843077234 Plan: 1patient presented hospital with a left foot cellulitis in this patient did have a traumatic wound to the left big toe medial aspect with evidence of maceration and some drainage and cellulitis likely from gram-positive skin sulaiman, underlying gram-negative infection less likely bilateral excluded. 2patient as showing overall clinical improvement, local wound culture is currently growing MRSA and Klebsiella, patient is clinically behaving as an osteomyelitis however wound skin was ordered by admitting team and came back positive, subsequently he did have MRI with concern for possible ostitis and also foreign-body vascular surgery has been consulted for possible debridement and extraction of the foreign-body continue with the cefepime and vancomycin discussed with the primary team Time with Patient: Less than 30
--- NOTE | 2021-11-16 06:54 | P.PN ---
Subjective Progress Note Date: 11/15/21 Principal diagnosis: Left diabetic foot infection Patient is a 50 year old male with past medical history significant for diabetes mellitus presented to hospital with left foot and leg pain in this patient did have a laceration to the lateral aspect of the left big toe with secondary cellulitis. Patient was evaluated by vascular surgery on 11/14/2021 not recommending any surgical debridement On today's evaluation that is 11/15/2021, the patient remains to be afebrile, the patient pain to the left foot is controlled, patient denies chest pain , shortness of breath or cough , the patient denies abdominal pain and no diarrhea with antibiotic therapy , no new symptoms Objective - Vital Signs Vital signs: Vital Signs Temp 97.9 F 11/15/21 12:41 Pulse 71 11/15/21 12:41 Resp 16 11/15/21 12:41 BP 148/85 11/15/21 12:41 Pulse Ox 99 11/15/21 12:41 Intake & Output 11/14/21 11/15/21 11/15/21 18:59 06:59 18:59 Intake Total 450 500 Balance 450 500 Intake: Intake, IV Titration 450 Amount Cefepime 2 gm In Sodium 200 Chloride 0.9% 100 ml @ 25 mls/hr IVPB Q8HR [facility] Rx# :[id number] Vancomycin 1,000 mg In 250 Sodium Chloride 0.9% 250 ml @ 125 mls/hr IVPB Q8H [facility] Rx#:[id number] Oral 500 Other: Voiding Method Toilet Toilet Toilet # Voids 2 - Exam GENERAL DESCRIPTION: A middle-age male lying in bed in no distress RESPIRATORY SYSTEM: Unlabored breathing , decreased breath sounds at bases HEART: S1 S2 regular rate and rhythm , ABDOMEN: Soft , no tenderness EXTREMITIES: Left big toe remains to be swollen with the blistering on the lateral aspect however the redness has slightly decreased no drainage - Labs CBC & Chem 7: 11/15/21 06:02 11/15/21 06:02 Labs: Abnormal Lab Results - Last 24 Hours (Table) 11/14/21 11/14/21 11/14/21 Range/Units 11:24 17:27 21:59 RBC (4.30-5.90) m/uL Hgb (13.0-17.5) gm/dL Hct (39.0-53.0) % MCHC (31.0-37.0) g/dL ESR 56 H (0-15) mm/hr Sodium (137-145) mmol/L Carbon Dioxide (22-30) mmol/L Glucose (74-99) mg/dL POC Glucose (mg/dL) 154 H 248 H (75-99) mg/dL 11/15/21 11/15/21 11/15/21 Range/Units 06:02 06:02 07:00 RBC 4.12 L (4.30-5.90) m/uL Hgb 11.8 L (13.0-17.5) gm/dL Hct 38.9 L (39.0-53.0) % MCHC 30.2 L (31.0-37.0) g/dL ESR (0-15) mm/hr Sodium 136 L (137-145) mmol/L Carbon Dioxide 31 H (22-30) mmol/L Glucose 181 H (74-99) mg/dL POC Glucose (mg/dL) 203 H (75-99) mg/dL 11/15/21 Range/Units 12:00 RBC (4.30-5.90) m/uL Hgb (13.0-17.5) gm/dL Hct (39.0-53.0) % MCHC (31.0-37.0) g/dL ESR (0-15) mm/hr Sodium (137-145) mmol/L Carbon Dioxide (22-30) mmol/L Glucose (74-99) mg/dL POC Glucose (mg/dL) 135 H (75-99) mg/dL Assessment and Plan (1) Cellulitis of left lower extremity Current Visit: Yes Status: Acute Code(s): L03.116 - CELLULITIS OF LEFT LOWER LIMB SNOMED Code(s): 348129149 Plan: 1patient presented hospital with a left foot cellulitis in this patient did have a traumatic wound to the left big toe medial aspect with evidence of maceration and some drainage and cellulitis likely from gram-positive skin sulaiman, underlying gram-negative infection less likely bilateral excluded. 2patient as showing overall clinical improvement, local wound culture is currently growing MRSA and Klebsiella, patient is clinically behaving as an osteomyelitis however wound skin was ordered by admitting team and came back positive, subsequently he did have MRI with concern for possible ostitis and also foreign-body vascular surgery has seen the patient not recommending any debridement, patient to continue with the cefepime and vancomycin, will get a PICC line for outpatient IV antibiotic therapy for 4 weeks Time with Patient: Less than 30
[2021-11-16 06:58] LABS: Glucose,Whole Blood 300 mg/dL (75-99)
[2021-11-16] MEDS: PANTOPRAZOLE 40 MG TABLET PO SCH (08:42)
[2021-11-16] MEDS: INSULIN ASPART (NovoLOG) 100 UNIT/ML VIAL SQ SCH ×2 (08:42→12:15)
[2021-11-16] MEDS: GABAPENTIN 400 MG CAP PO SCH (08:42)
[2021-11-16] MEDS: INSULIN DETEMIR (LEVEMIR) 100 UNIT/ML SYR SQ SCH (08:42)
[2021-11-16 11:35] LABS: Glucose,Whole Blood 164 mg/dL (75-99)
[2021-11-16 11:36] LABS: African American GFR (CKD) >90 (>60 ml/min/1.73 sqM); Anion Gap 4 mmol/L; Blood Urea Nitrogen 20 mg/dL (9-20); Calcium 8.5 mg/dL (8.4-10.2); Carbon Dioxide 29 mmol/L (22-30); Chloride 102 mmol/L (98-107); Glucose 208 mg/dL (74-99); Non-African American GFR(CKD) >90 (>60 ml/min/1.73 sqM); Potassium 4.5 mmol/L (3.5-5.1); Sodium 135 mmol/L (137-145)
[2021-11-16] MEDS ORDERED: HYDROmorphone 0.5 MG/0.5 ML SYRINGE IVP STA (11:37)
--- NOTE | 2021-11-16 12:43 | DS ---
DISCHARGE SUMMARY DATE OF SERVICE: 11/16/2021 FINAL DIAGNOSIS: 1. Acute osteomyelitis of the left foot with cellulitis. 2. MRSA. 3. Diabetic ulcer. 4. Diabetes mellitus, type 2. DISCHARGE DISPOSITION: The patient will be discharged in stable condition with guarded prognosis. HISTORY OF PRESENT ILLNESS: This 50-year-old gentleman was admitted with a left foot diabetic wound and ulcer and cellulitis and features of osteomyelitis on the MRI scan. There was suspicion for a foreign body, but Dr. Casarez saw the patient and recommended no surgical intervention at this time. Dr. Maher saw the patient. Outpatient IV antibiotics are being arranged. The patient is stable, but overall prognosis is guarded. Please refer to the previous dictation for further information. On exam, vitals are stable. CARDIOVASCULAR: S1, S2 muffled. ABDOMEN: Soft. Left foot cellulitis and infection present. Mild tenderness. The patient will be discharged home with plans for IV antibiotics per Dr. Maher. Continue the rest of the home medications and follow up with Dr. Armaan León, primary physician, in the outpatient setting. MMODL / IJN: [id number] /
[2021-11-16 13:14] VITALS: BP 153/83; PULSE 65; RESP 16; TEMP 97.8
== END 2021-11-16 14:30 | disposition home health service (06) | DRG 638 ==
LOC: EC 12:37 → 5NMEDONC 14:06
PROVIDERS: ADMIT Internal Medicine; ATTEND Internal Medicine
PROC: B518YZA Fluoroscopy of Superior Vena Cava using Other Contrast, Guidance (ICD-10-PCS; principal; 2021-11-15 14:09)
PROC: B548ZZA Ultrasonography of Superior Vena Cava, Guidance (ICD-10-PCS; principal; 2021-11-15 14:09)
PROC: 02HV33Z Insertion of Infusion Device into Superior Vena Cava, Percutaneous Approach (ICD-10-PCS; principal; 2021-11-15 14:09)
DX: E11.628 Type 2 diabetes mellitus with other skin complications (principal); L03.116 Cellulitis of left lower limb; M86.172 Other acute osteomyelitis, left ankle and foot; E87.1 Hypo-osmolality and hyponatremia; E87.2 Acidosis; E11.40 Type 2 diabetes mellitus with diabetic neuropathy, unspecified; L97.529 Non-pressure chronic ulcer of other part of left foot with unspecified severity; F90.9 Attention-deficit hyperactivity disorder, unspecified type; B95.62 Methicillin resistant Staphylococcus aureus infection as the cause of diseases classified elsewhere; J44.9 Chronic obstructive pulmonary disease, unspecified; E11.69 Type 2 diabetes mellitus with other specified complication; B96.1 Klebsiella pneumoniae [K. pneumoniae] as the cause of diseases classified elsewhere; E11.621 Type 2 diabetes mellitus with foot ulcer; E11.65 Type 2 diabetes mellitus with hyperglycemia; Z86.73 Personal history of transient ischemic attack (TIA), and cerebral infarction without residual deficits; Z86.14 Personal history of Methicillin resistant Staphylococcus aureus infection; Z87.891 Personal history of nicotine dependence; Z83.3 Family history of diabetes mellitus; Z79.4 Long term (current) use of insulin; Z79.899 Other long term (current) drug therapy; Z91.14 Patient's other noncompliance with medication regimen
CPT/HCPCS: 36415; 36573; 78315; 80048; 80053; 80202; 82565; 83036; 83605; 85025; 85610; 85652; 86140; 87040; 87070; 87077; 87186; 87205; 96361; 96365; 96366; 96367; 96375; 99284

== ENCOUNTER 2021-11-19 20:00 | Emergency (ER) | payer MEDICARE, OTHER ==
[2021-11-19 21:13] VITALS: RESP 18; TEMP 97.5
[2021-11-19 22:48] LABS: Glucose,Whole Blood 530 mg/dL (75-99)
[2021-11-20 00:33] LABS: Glucose,Whole Blood 423 mg/dL (75-99)
[2021-11-20] MEDS ORDERED: SODIUM CHLORIDE 0.9% 1,000 ML IV ONE (00:40)
[2021-11-20 01:12] LABS: Basophils # (A) 0.1 k/uL (0-0.2); Basophils % (A) 1 %; Eosinophils # (A) 0.1 k/uL (0-0.7); Eosinophils % (A) 1 %; HCT 42.7 % (39.0-53.0); Lymphocytes # (A) 1.2 k/uL (1.0-4.8); Lymphocytes % (A) 14 %; MCH 28.3 pg (25.0-35.0); MCHC 30.5 g/dL (31.0-37.0); MCV 92.5 fL (80.0-100.0); Mean Platelet Volume 7.2; Monocytes # (A) 0.4 k/uL (0-1.0); Monocytes % (A) 5 %; Neutrophils # (A) 7.1 k/uL (1.3-7.7); Neutrophils % (A) 78 %; Platelet Count 383 k/uL (150-450); RBC 4.61 m/uL (4.30-5.90); RDW 13.3 % (11.5-15.5)
[2021-11-20] MEDS ORDERED: INSULIN REGULAR 100 UNIT/ML VIAL (IV) IV STA ×2 (01:22→02:01)
[2021-11-20 01:25] LABS: ALT 21 U/L (4-49); AST 22 U/L (17-59); African American GFR (CKD) >90 (>60 ml/min/1.73 sqM); Albumin 3.7 g/dL (3.5-5.0); Alkaline Phosphatase 88 U/L (38-126); Anion Gap 8 mmol/L; Blood Urea Nitrogen 31 mg/dL (9-20); C Reactive Protein 0.6 mg/dL (<1.0); Calcium 8.9 mg/dL (8.4-10.2); Carbon Dioxide 23 mmol/L (22-30); Chloride 97 mmol/L (98-107); Glucose 457 mg/dL (74-99); Non-African American GFR(CKD) 83 (>60 ml/min/1.73 sqM); Potassium 5.1 mmol/L (3.5-5.1); Sodium 128 mmol/L (137-145); Total Bilirubin 0.7 mg/dL (0.2-1.3)
[2021-11-20] MEDS ORDERED: HYDROcodone/APAP 10-325MG 1 EACH TAB PO ONE (01:53)
[2021-11-20 02:03] LABS: Glucose,Whole Blood 343 mg/dL (75-99)
--- NOTE | 2021-11-20 02:48 | ED ---
General Adult HPI - General Chief complaint: Recheck/Abnormal Lab/Rx Stated complaint: Uncontrolled Blood Glucose Time Seen by Provider: 11/20/21 00:40 Source: patient Mode of arrival: wheelchair - History of Present Illness Initial comments: This patient is a 50-year-old man who presents with complaint that his blood sugar has been reading high. Patient states this is been going on most of the day. He was recently diagnosed with diabetic foot infection and notes that when this happens his blood sugars usually do run high. Patient is not having fever or chills. No chest pain or dyspnea. No nausea or vomiting. -: hour(s) Severity scale (1-10): 0 Consistency: constant Improves with: none Worsens with: none Associated Symptoms: denies other symptoms Treatments Prior to Arrival: none - Related Data Home Medications Medication Instructions Recorded Confirmed Gabapentin [Neurontin] 400 mg PO BID 11/07/21 11/07/21 Insulin Glargine [Lantus Vial] 70 unit SQ BID 11/07/21 11/07/21 lisinopriL 40 mg PO DAILY 11/07/21 11/07/21 Previous Rx's Medication Instructions Recorded Acetaminophen Tab [Tylenol] 650 mg PO Q6HR PRN tab 11/15/21 HYDROcodone/APAP 10-325MG [[place] 1 tab PO Q6HR PRN 3 Days #12 tab 11/16/21 10-325] Allergies Allergy/AdvReac Type Severity Reaction Status Date / Time No Known Allergies Allergy Verified 11/19/21 21:13 Review of Systems ROS Statement: Those systems with pertinent positive or pertinent negative responses have been documented in the HPI. ROS Other: All systems not noted in ROS Statement are negative. Constitutional: Denies: fever, chills Respiratory: Denies: cough, dyspnea Cardiovascular: Denies: chest pain, palpitations, edema Endocrine: Reports: polydipsia, polyuria Gastrointestinal: Denies: abdominal pain, vomiting, diarrhea Genitourinary: Denies: dysuria, hematuria Skin: Denies: rash Neurological: Denies: headache, weakness Past Medical History Past Medical History: Asthma, COPD, CVA/TIA, Diabetes Mellitus Additional Past Medical History / Comment(s): neuropathy. TIA 7--18 History of Any Multi-Drug Resistant Organisms: MRSA Date of last positivie culture/infection: 11/08/21 MDRO Source:: Toe Left First Past Surgical History: Orthopedic Surgery Past Psychological History: ADD/ADHD Smoking Status: Former smoker Past Alcohol Use History: None Reported Past Drug Use History: Marijuana - Past Family History Mother Family Medical History: Diabetes Mellitus Father Family Medical History: Diabetes Mellitus General Exam General appearance: alert, in no apparent distress Head exam: Present: atraumatic, normocephalic Eye exam: Present: normal appearance. Absent: scleral icterus, conjunctival injection ENT exam: Present: normal oropharynx Neck exam: Present: normal inspection Respiratory exam: Present: normal lung sounds bilaterally. Absent: respiratory distress, wheezes, rales, rhonchi, stridor Cardiovascular Exam: Present: regular rate, normal rhythm, normal heart sounds. Absent: systolic murmur, diastolic murmur, rubs, gallop GI/Abdominal exam: Present: soft. Absent: tenderness, guarding, rebound Neurological exam: Present: alert Skin exam: Present: warm, dry, intact, normal color. Absent: rash Course Vital Signs 11/19/21 11/20/21 11/20/21 21:09 00:57 03:03 Temperature 97.5 F L 97.5 F L Pulse Rate 88 86 87 Respiratory 18 18 18 Rate Blood Pressure 105/71 155/90 119/89 O2 Sat by Pulse 97 98 97 Oximetry Medical Decision Making - Medical Decision Making Patient's 50-year-old man with diabetic foot infection whose blood sugars have been running high at home. He has had improvement following fluids and insulin. Discussed admission, but at this point patient rather go home. He'll return should the blood sugars continue to be running high. Patient will check sugar more frequently and may require additional home insulin. Patient will have close follow-up discussed return parameters. - Lab Data Result diagrams: 11/20/21 00:52 11/20/21 00:52 Lab Results 11/19/21 11/20/21 11/20/21 Range/Units 22:45 00:28 00:52 WBC 9.0 (3.8-10.6) k/uL RBC 4.61 (4.30-5.90) m/uL Hgb 13.0 (13.0-17.5) gm/dL Hct 42.7 (39.0-53.0) % MCV 92.5 (80.0-100.0) fL MCH 28.3 (25.0-35.0) pg MCHC 30.5 L (31.0-37.0) g/dL RDW 13.3 (11.5-15.5) % Plt Count 383 (150-450) k/uL MPV 7.2 Neutrophils % 78 % Lymphocytes % 14 % Monocytes % 5 % Eosinophils % 1 % Basophils % 1 % Neutrophils # 7.1 (1.3-7.7) k/uL Lymphocytes # 1.2 (1.0-4.8) k/uL Monocytes # 0.4 (0-1.0) k/uL Eosinophils # 0.1 (0-0.7) k/uL Basophils # 0.1 (0-0.2) k/uL Sodium (137-145) mmol/L Potassium (3.5-5.1) mmol/L Chloride (98-107) mmol/L Carbon Dioxide (22-30) mmol/L Anion Gap mmol/L BUN (9-20) mg/dL Creatinine (0.66-1.25) mg/dL Est GFR (CKD-EPI)AfAm (>60 ml/min/1.73 sqM) Est GFR (CKD-EPI)NonAf (>60 ml/min/1.73 sqM) Glucose (74-99) mg/dL POC Glucose (mg/dL) 530 H 423 H (75-99) mg/dL POC Glu Whipped Topping Mixer ID Lima Sood Ashley Calcium (8.4-10.2) mg/dL Total Bilirubin (0.2-1.3) mg/dL AST (17-59) U/L ALT (4-49) U/L Alkaline Phosphatase (38-126) U/L C-Reactive Protein (<1.0) mg/dL Total Protein (6.3-8.2) g/dL Albumin (3.5-5.0) g/dL Acetone, Qual (Negative) 11/20/21 11/20/21 Range/Units 00:52 01:58 WBC (3.8-10.6) k/uL RBC (4.30-5.90) m/uL Hgb (13.0-17.5) gm/dL Hct (39.0-53.0) % MCV (80.0-100.0) fL MCH (25.0-35.0) pg MCHC (31.0-37.0) g/dL RDW (11.5-15.5) % Plt Count (150-450) k/uL MPV Neutrophils % % Lymphocytes % % Monocytes % % Eosinophils % % Basophils % % Neutrophils # (1.3-7.7) k/uL Lymphocytes # (1.0-4.8) k/uL Monocytes # (0-1.0) k/uL Eosinophils # (0-0.7) k/uL Basophils # (0-0.2) k/uL Sodium 128 L (137-145) mmol/L Potassium 5.1 (3.5-5.1) mmol/L Chloride 97 L (98-107) mmol/L Carbon Dioxide 23 (22-30) mmol/L Anion Gap 8 mmol/L BUN 31 H (9-20) mg/dL Creatinine 1.04 (0.66-1.25) mg/dL Est GFR (CKD-EPI)AfAm >90 (>60 ml/min/1.73 sqM) Est GFR (CKD-EPI)NonAf 83 (>60 ml/min/1.73 sqM) Glucose 457 H (74-99) mg/dL POC Glucose (mg/dL) 343 H (75-99) mg/dL POC Glu Whipped To[employer] Mixer Hannah Christensen Calcium 8.9 (8.4-10.2) mg/dL Total Bilirubin 0.7 (0.2-1.3) mg/dL AST 22 (17-59) U/L ALT 21 (4-49) U/L Alkaline Phosphatase 88 (38-126) U/L C-Reactive Protein 0.6 (<1.0) mg/dL Total Protein 7.0 (6.3-8.2) g/dL Albumin 3.7 (3.5-5.0) g/dL Acetone, Qual Negative (Negative) Disposition Clinical Impression: Hyperglycemia Disposition: HOME SELF-CARE Condition: Fair Is patient prescribed a controlled substance at d/c from ED?: No Referrals: Armaan León DO [Primary Care Provider] - 1-2 days
[2021-11-20 03:04] VITALS: BP 119/89; PULSE 87
== END 2021-11-20 03:04 | disposition home or self-care (01) ==
LOC: EC 20:00
DX: E11.65 Type 2 diabetes mellitus with hyperglycemia (principal); J44.9 Chronic obstructive pulmonary disease, unspecified; Z79.4 Long term (current) use of insulin; Z87.891 Personal history of nicotine dependence
CPT/HCPCS: 36415; 80053; 82009; 85025; 86140; 96360; 96361; 96374; 99284